=== PATIENT | male | born 1965 | race Caucasian/White ===

== ENCOUNTER 2020-05-09 13:55 | Outpatient (REF) | payer OTHER, SELFPAY | END 2020-05-09 13:56 | disposition home or self-care (01) | LOC: HO.LAB 13:55 | PROVIDERS: Visit Provider Nurse Practitioner Family | DX: J32.9 Chronic sinusitis, unspecified (principal); Z20.822 Contact with and (suspected) exposure to COVID-19 | CPT/HCPCS: 36415; U0003 ==

== ENCOUNTER 2020-08-22 07:02 | Outpatient (REF) | payer OTHER, SELFPAY ==
[2020-08-22 12:02] LABS: Alanine Aminotransferase 28 U/L (0-40); Albumin Level 4.2 g/dL (3.5-5.0); Alkaline Phosphatase 56 U/L (39-117); Anion Gap 17 (12-20); Aspartate Amino Transferase 23 U/L (5-37); Blood Urea Nitrogen 17 mg/dL (9-16); Calcium 8.7 mg/dL (8.4-10.2); Carbon Dioxide 24 mmol/L (22-29); Chloride 104 mmol/L (96-108); Cholesterol 164 mg/dL; Estimated Glomerular Filt Rate > 60; Glucose Fasting 96 mg/dL (60-99); HDL Cholesterol 57 mg/dL; LDL Cholesterol Calculated 89 mg/dl; Potassium 3.8 mmol/L (3.3-5.1); Sodium 141 mmol/L (135-145); Total Protein 6.8 g/dL (6.5-8.0); Triglycerides 93 mg/dL
[2020-08-22 12:29] LABS: TSH reflex Free T4 1.41 uIU/mL (0.32-4.0)
[2020-08-22 12:57] LABS: Prostate Specific Antigen Scr 2.05 ng/mL (<0.05-4.0)
[2020-08-26 19:21] LABS: Testosterone, Free 73.6 pg/mL (35.0-155.0); Testosterone, Total 501 ng/dL (250-1100)
== END 2020-08-22 07:03 | disposition home or self-care (01) ==
LOC: HO.HMGCLDS 07:02
PROVIDERS: PCP Nurse Practitioner Family; Visit Provider Nurse Practitioner Family
DX: Z00.00 Encounter for general adult medical examination without abnormal findings (principal); R53.83 Other fatigue; Z12.5 Encounter for screening for malignant neoplasm of prostate
CPT/HCPCS: 36415; 80053; 80061; 84153; 84402; 84403; 84443

== ENCOUNTER 2020-12-06 08:00 | Outpatient (REF) | payer OTHER, SELFPAY ==
--- NOTE | ~2020-12-06 | XR_ITS ---
EXAMINATION: XR AP STANDING VIEW OF BOTH KNEES WELL LATERAL AND SUNRISE VIEWS OF THE RIGHT KNEE. CLINICAL INFORMATION: Right knee pain. COMPARISON: 12/01/2019 and 09/09/2019. TECHNIQUE: AP standing views of both knees. Lateral and sunrise views of the right knee. FINDINGS: AP standing view of both knees demonstrates narrowing of the medial joint space compartments bilaterally with marginal spurring. No acute fracture or dislocation is evident. 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 There is spurring seen involving both the medial and lateral facets of the patella. No effusion is appreciated. XR/XR knee standing BI IMPRESSION: Degenerative joint disease about the medial joint space compartments bilaterally. Patellofemoral degenerative change with spurring undersurface of the patella. No acute fracture or effusion.
--- NOTE | ~2020-12-06 | XR_ITS ---
EXAMINATION: XR AP STANDING VIEW OF BOTH KNEES WELL LATERAL AND SUNRISE VIEWS OF THE RIGHT KNEE. CLINICAL INFORMATION: Right knee pain. COMPARISON: 12/01/2019 and 09/09/2019. TECHNIQUE: AP standing views of both knees. Lateral and sunrise views of the right knee. FINDINGS: AP standing view of both knees demonstrates narrowing of the medial joint space compartments bilaterally with marginal spurring. No acute fracture or dislocation is evident. 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 There is spurring seen involving both the medial and lateral facets of the patella. No effusion is appreciated. XR/XR knee RT 2V IMPRESSION: Degenerative joint disease about the medial joint space compartments bilaterally. Patellofemoral degenerative change with spurring undersurface of the patella. No acute fracture or effusion.
== END 2020-12-06 08:01 | disposition home or self-care (01) ==
LOC: HO.HOSX 08:00
PROVIDERS: Visit Provider Orthopaedic Surgery
DX: M17.0 Bilateral primary osteoarthritis of knee (principal)
CPT/HCPCS: 73560; 73565

== ENCOUNTER 2022-06-18 11:54 | Outpatient (REF) | payer OTHER, SELFPAY ==
[2022-06-18 14:00] LABS: MANUAL DIFF FLAG NO
[2022-06-18 14:04] LABS: Basophils Percent Auto 0.8 % (0-2); Eosinophils Absolute Auto 0.1 X10*3/uL (0.0-0.4); Eosinophils Percent Auto 2.7 % (0-4); Hematocrit 43.8 % (42.0-52.0); Hemoglobin 14.9 g/dl (14.0-18.0); Imm Gran Abs Auto 0.01 X10*3/uL (0.00-0.03); Imm Gran Pct Auto 0.2 % (0.0-0.4); Lymphocytes Absolute Auto 1.7 X10*3/uL (1.2-4.9); Lymphocytes Percent Auto 33.7 % (20-40); Mean Corpuscular Hemoglobin 32.3 pg (27.0-33.0); Mean Platelet Volume 9.6 fL (9.4-12.4); Monocytes Absolute Auto 0.5 X10*3/uL (0.1-1.2); Monocytes Percent Auto 8.8 % (2-11); Neutrophils Absolute Auto 2.8 x10*3/uL (2.0-8.3); Neutrophils Percent Auto 53.8 % (45-73); Platelet Count 183 X10*3/uL (160-400); Red Blood Count 4.61 X10*6/uL (4.60-5.80); Red Cell Distribution Width 12.1 % (11.0-16.0); White Blood Count 5.1 X10*3/uL (4.8-10.8)
[2022-06-18 14:08] LABS: Appearance Urine Turbid; Color Urine Yellow; Glucose Urine UA Negative (Negative); Leukocyte Esterase Urine Negative (Negative); Nitrite Urine Negative (Negative); Specific Gravity - Urine 1.025 (1.005-1.025); Urine Blood Negative (Negative); Urine Ketones Negative (Negative); Urine Protein Negative (Neg-Trace)
[2022-06-18 14:49] LABS: Alanine Aminotransferase 27 U/L (0-40); Albumin Level 4.2 g/dL (3.5-5.0); Alkaline Phosphatase 51 U/L (39-117); Anion Gap 13 (12-20); Aspartate Amino Transferase 26 U/L (5-37); Bilirubin Total 1.4 mg/dL (0.0-1.0); Blood Urea Nitrogen 15 mg/dL (9-16); Calcium 9.1 mg/dL (8.4-10.2); Carbon Dioxide 24 mmol/L (22-29); Chloride 106 mmol/L (96-108); Cholesterol 202 mg/dL; Estimated Glomerular Filt Rate > 60; Glucose Fasting 107 mg/dL (60-99); HDL Cholesterol 80 mg/dL; LDL Cholesterol Calculated 105 mg/dl; Potassium 4.1 mmol/L (3.3-5.1); Sodium 139 mmol/L (135-145); Triglycerides 89 mg/dL
[2022-06-18 14:57] LABS: Prostate Specific Antigen Scr 2.64 ng/mL (<0.05-4.0); TSH reflex Free T4 0.91 uIU/mL (0.32-4.0)
== END 2022-06-18 11:55 | disposition home or self-care (01) ==
LOC: HO.HMGCLDS 11:54
PROVIDERS: PCP Nurse Practitioner Family; Visit Provider Nurse Practitioner Family
DX: Z00.00 Encounter for general adult medical examination without abnormal findings (principal); Z12.5 Encounter for screening for malignant neoplasm of prostate
CPT/HCPCS: 36415; 80053; 80061; 81003; 84153; 84443; 85025

== ENCOUNTER 2022-12-18 15:26 | Outpatient (AMB) | payer OTHER, SELFPAY ==
--- NOTE | 2022-12-18 15:26 | A.OFFVIS_ITS ---
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 Pt states that the VV are becoming painful to touch, burning and itching, has been prescribed compression stockings. 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 Complaints include pain over varicosities, swelling of lower extremities, cramping, fatigue, and heaviness of the lower extremities. 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 It is noted more so in right leg. Patient denies any previous venous surgery or injections, but was evaluated several years prior by Dr. Cortes and was actually scheduled for venous intervention but ended up having orthopedic surgery instead. Patient denies any history of DVT/ PE.- he does have a family history DVT inclusive of his mom who had a DVT and PE Patient denies any history of phlebitis. Trial of compression includes - [id number] They now present for vascular evaluation regarding their varicose veins. [facility] Medical History GERD (gastroesophageal reflux disease) History of torn meniscus of left knee Hypertension JOHN (obstructive sleep apnea) Primary osteoarthritis of left knee Primary osteoarthritis of right knee Family History Father No problems noted. 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 Review of Systems Const Reports as per HPI ENT Reports no additional complaints Card Denies chest pain, Denies chest pain at rest and Denies chest pain with activity Resp Denies chest congestion and Denies cough GI Reports no additional complaints Musc Details: pain over varicosities, aching of lower extremities, swelling, cramping, heaviness and tiredness, itching Denies abnormal gait Skin/Breast Reports pruritus and Denies wounds Neuro Reports no additional complaints and Denies abnormal gait Psych Denies no additional complaints Physical Exam Vital Signs: BMI result Body Mass Index 39.1 Const General: cooperative, healthy appearing and comfortable Orientation/consciousness: oriented to person, oriented to place and oriented to time Neck Carotids: no bruits Chest Chest palpation & inspection: normal inspection of the chest and normal palpation of entire chest wall Resp Effort & Inspection: normal respiratory effort and able to speak in complete sentences Cardio Rate: regular rate Heart sounds: S1 normal heart sound present and S2 normal heart sound present Peripheral pulses: Peripheral pulses 2+ throughout GI Inspection: Yes normal to inspection Skin Other: +2 edema, large rope-like varicosities greater than 4 mm CEAP Classification C4 - skin color changes Ep - Etiology Primary As - superficial veins P - reflux General skin exam: dry skin Neuro General: oriented to person, oriented to place and oriented to time Extrem Right lower extremity: full ROM, normal capillary refill and edema Left lower extremity: full ROM, normal capillary refill and edema Psych Mental Status: mental status grossly normal Assessment & Plan Assessment & Plan (1) Varicose veins of right lower extremity with inflammation: Code(s): I83.11 - Varicose veins of right lower extremity with inflammation Plan: In short, the patient has evidence of venous insufficiency. I have discussed the pathophysiology with the patient. In addition I have provided informational material regarding venous disease to the patient. We have discussed conservative measures including compression, elevation, and exercise. I have also provided a handout regarding appropriate use of compression stockings and where to purchase good compression stockings as well. I have taken the liberty of ordering venous insufficiency testing with the patient. They will follow up with me after testing. The patient had an opportunity to ask questions regarding the treatment plan. All questions were answered. Imaging studies, laboratory studies and physical exam results were discussed and reviewed in detail. No major barriers to understanding were identified. The patient expressed understanding and agreement with the above treatment plan. The patient is aware they should contact our office by phone for worsening of the current condition or the appearance of new symptoms. Thank you for allowing me to participate in the vascular care of this patient. If you have any questions or concerns regarding the treatment for the above condition please do not hesitate to contact me. The office telephone contact is [phone]. This note is constructed using voice recognition software. While every effort has been made to ensure accuracy, criminal intelligence analyst errors may have been included. Thank you for allowing me to participate in the care of your patient. Yours sincerely, Ric Naranjo MD, FACS, R.P.V.I. Orders: Orders US venous duplex LE BI 1 Week I83.11 - Varicose veins of right lower extremity with inflammation Coding Level of Care Code Est Pt Level 4 (35074) Diagnoses Varicose veins of right lower extremity with inflammation I83.11
[2022-12-18 15:27] VITALS: BMI 39.1
== END 2022-12-18 15:57 | disposition home or self-care (01) ==
PROVIDERS: PCP Nurse Practitioner Family; Visit Provider Surgery Vascular Surgery
DX: I83.11 Varicose veins of right lower extremity with inflammation (principal); I83.12 Varicose veins of left lower extremity with inflammation; Z83.2 Family history of diseases of the blood and blood-forming organs and certain disorders involving the immune mechanism
CPT/HCPCS: 99203

== ENCOUNTER → 2022-12-18 15:26 | Outpatient (BNVA) | payer OTHER, SELFPAY | PROVIDERS: PCP Nurse Practitioner Family; Visit Provider Surgery Vascular Surgery ==

== ENCOUNTER 2022-12-24 10:03 | Outpatient (REF) | payer OTHER, SELFPAY ==
[2022-12-24 11:27] LABS: MANUAL DIFF FLAG NO
[2022-12-24 12:09] LABS: Basophils Percent Auto 0.6 % (0-2); Eosinophils Absolute Auto 0.1 X10*3/uL (0.0-0.4); Eosinophils Percent Auto 2.3 % (0-4); Hematocrit 43.9 % (42.0-52.0); Hemoglobin 14.8 g/dl (14.0-18.0); Imm Gran Abs Auto 0.01 X10*3/uL (0.00-0.03); Imm Gran Pct Auto 0.2 % (0.0-0.4); Lymphocytes Absolute Auto 1.6 X10*3/uL (1.2-4.9); Lymphocytes Percent Auto 30.4 % (20-40); Mean Corpuscular HGB Conc 33.7 g/dl (31.0-36.0); Mean Corpuscular Hemoglobin 32.7 pg (27.0-33.0); Mean Corpuscular Volume 97.1 fL (80.0-98.0); Mean Platelet Volume 9.6 fL (9.4-12.4); Monocytes Absolute Auto 0.5 X10*3/uL (0.1-1.2); Monocytes Percent Auto 9.2 % (2-11); Neutrophils Percent Auto 57.3 % (45-73); Platelet Count 186 X10*3/uL (160-400); Red Blood Count 4.52 X10*6/uL (4.60-5.80); White Blood Count 5.2 X10*3/uL (4.8-10.8)
[2022-12-24 12:43] LABS: Alanine Aminotransferase 27 U/L (0-40); Albumin Level 4.2 g/dL (3.5-5.0); Alkaline Phosphatase 49 U/L (39-117); Anion Gap 13 (12-20); Aspartate Amino Transferase 24 U/L (5-37); Bilirubin Total 1.6 mg/dL (0.0-1.0); Blood Urea Nitrogen 13 mg/dL (9-16); Calcium 9.6 mg/dL (8.4-10.2); Carbon Dioxide 26 mmol/L (22-29); Chloride 105 mmol/L (96-108); Cholesterol 197 mg/dL (<200); Estimated Glomerular Filt Rate > 60; Glucose Fasting 109 mg/dL (60-99); HDL Cholesterol 70 mg/dL (>40); LDL Cholesterol Calculated 108 mg/dL (<100); Potassium 3.8 mmol/L (3.3-5.1); Sodium 140 mmol/L (135-145); Total Protein 7.4 g/dL (6.5-8.0); Triglycerides 96 mg/dL (<150)
[2022-12-24 12:47] LABS: TSH reflex Free T4 0.68 uIU/mL (0.32-4.0)
[2022-12-24 14:10] LABS: Appearance Urine Turbid; Color Urine Yellow; Glucose Urine UA Negative (Negative); Leukocyte Esterase Urine Negative (Negative); Nitrite Urine Negative (Negative); Urine Blood Negative (Negative); Urine Ketones Negative (Negative); Urine Protein Negative (Neg-Trace)
== END 2022-12-24 10:04 | disposition home or self-care (01) ==
LOC: HO.HMGCLDS 10:03
PROVIDERS: PCP Nurse Practitioner Family; Visit Provider Nurse Practitioner Family
DX: Z00.00 Encounter for general adult medical examination without abnormal findings (principal); R17 Unspecified jaundice; R73.03 Prediabetes; Z13.29 Encounter for screening for other suspected endocrine disorder; Z13.220 Encounter for screening for lipoid disorders
CPT/HCPCS: 36415; 80053; 80061; 81003; 84443; 85025

== ENCOUNTER 2022-12-28 08:34 | Outpatient (REF) | payer OTHER, SELFPAY ==
--- NOTE | ~2022-12-28 | US_ITS ---
EXAMINATION: US VENOUS REFLUX/INSUFFICIENCY CLINICAL INFORMATION: Varicose veins of right lower extremity of inflammation. COMPARISON: None. TECHNIQUE: Bilateral lower extremity venous insufficiency ultrasound was performed with velocity measurements. Color flow Doppler imaging was performed. FINDINGS: RIGHT SIDE: No evidence of DVT or venous reflux within the common femoral, mid femoral, or popliteal vein. GREATER SAPHENOUS VEIN: The right saphenofemoral junction measures 0.6cm. The reflux time is 0 ms. Proximal thigh measures 0.6cm. Reflux time is 0 ms. Mid thigh measures 0.2cm. Reflux time is 0 ms. Above-knee measures 0.2cm. Reflux time is 0 ms. At the knee measures 0.2cm. Reflux time is 0 ms. Below the knee measures 0.2cm. Reflux time is 0 ms. Mid calf measures 0.3cm. Reflux time is greater than 2716 ms. At the level of the ankle it measures 0.3cm. Reflux time is 0 ms. There is a small lateral accessory great saphenous vein which measures 0.1 cm at the saphenofemoral junction and does not demonstrate reflux. SMALL SAPHENOUS VEIN: The saphenopopliteal junction measures 0.2 cm. Reflux time is 0 ms. The upper right small saphenous vein measures 0.2 cm. Reflux time is 0 ms.. The lower small saphenous vein measures 0.2cm. Reflux time is 0 ms. 3 varicosities are visualized and are associated with the greater saphenous vein. At the mid calf there is a 0.2 cm varicosity with reflux time greater than 3032 ms. 2 additional varicosities are seen and the level of the proximal thigh and proximal calf which both measure 0.3 cm LEFT SIDE: No evidence of DVT or venous reflux within the common femoral, mid femoral, or popliteal vein. GREATER SAPHENOUS VEIN: The left saphenofemoral junction measures 1cm. The reflux time is 0 ms. Proximal thigh measures 0.6cm. Reflux time is 0 ms. Mid thigh measures 0.2cm. Reflux time is 0 ms. Above-knee measures 0.3cm. Reflux time is 0 ms. At the knee measures 0.2cm. Reflux time is 0 ms. Below the knee measures 0.2cm. Reflux time is 0 ms. Mid calf measures 0.2cm. Reflux time is 0 ms. At the level of the ankle it measures0.2cm. Reflux time is 0 ms. There is a lateral accessory saphenous vein which measures 0.3 cm at the saphenofemoral junction and 0.2 cm at the mid thigh. No demonstrable reflux SMALL SAPHENOUS VEIN: The saphenopopliteal junction measures 0.3 cm. Reflux time is 0 ms. The upper left small saphenous vein measures 0.2 cm. Reflux time is 0 ms. The lower small saphenous vein is duplicated and each duplicated segment measures 0.2 cm. No reflux observed. US/US venous duplex LE BI IMPRESSION: The deep venous system is patent and does not demonstrate reflux. On the right there is segmental reflux within the midcalf segment of the great saphenous vein. There are several right lower extremity varicosities associated with the great saphenous vein. Among these is a 0.2 cm varicosity at the mid calf with reflux time greater than 3032 ms. The left lower extremity superficial venous system is patent and does not demonstrate reflux.
== END 2022-12-28 08:35 | disposition home or self-care (01) ==
LOC: HO.US 08:34
PROVIDERS: PCP Nurse Practitioner Family; Visit Provider Surgery Vascular Surgery
DX: I83.11 Varicose veins of right lower extremity with inflammation (principal)
CPT/HCPCS: 93970

== ENCOUNTER 2023-01-08 10:13 | Outpatient (AMB) | payer OTHER, SELFPAY ==
--- NOTE | 2023-01-08 10:16 | A.OFFVIS_ITS ---
Intake VS Expanded 01/08/23 10:24 01/13/23 22:32 Height 5 ft 9 in 5 ft 9 in Weight 264 lb 8.875 oz 265 lb BMI 39.1 39.1 Intake Visit Reasons: pre dm Allergies prednisone [PREDNISONE] Allergy (Severe, Verified 12/18/22 15:36) GI BLEED, bleeding from lining of stomach prednisolone Allergy (Unknown, Verified 12/18/22 15:36) stomach upset cat, dogs Allergy (Unknown, Uncoded 12/18/22 15:36) Itching HPI Nutrition Presentation Details Pt presents for initial MNT for PRe DM. Pt was referred by Franco STEELE Pt reports most meals are from fast food restaurants B: large coffee midnight with cream only, henley cheddar bite L/D: fries/burger or chicken/potato/henley, water , milk snack crackers, pastries, fruits , chips eTOH: -- Smoking__ physical activity: daily life activities DRJ-Mywrwai-Xx.Jeor Equation Height 5 ft 9 in Weight 265 lb Resting Metabolic Rate 2025.67 Calculated Activity Level Sedentary Calories Needed to Maintain Weight 2430.80 Diagnosis Nutrition problem #1 food nutri know defi As related to (etiology) #1 diagnosis As evidenced by (sign/symptom) #1 no prior educ - nutri rec Monitoring/Goals Nutrition problem monitoring HgbA1c and level of knowledge/skill Most Recent Diabetes Results: Cholesterol 197 mg/dL (<200) 12/24/22 HDL Cholesterol 70 mg/dL (>40) 12/24/22 Triglycerides 96 mg/dL (<150) 12/24/22 Creatinine 0.90 mg/dL (0.5-1.4) 12/24/22 Blood Urea Nitrogen 13 mg/dL (9-16) 12/24/22 Sodium 140 mmol/L (135-145) 12/24/22 Potassium 3.8 mmol/L (3.3-5.1) 12/24/22 Chloride 105 mmol/L (96-108) 12/24/22 Carbon Dioxide 26 mmol/L (22-29) 12/24/22 Calcium 9.6 mg/dL (8.4-10.2) 12/24/22 AST 24 U/L (5-37) 12/24/22 ALT 27 U/L (0-40) 12/24/22 Total Protein 7.4 g/dL (6.5-8.0) 12/24/22 Albumin 4.2 g/dL (3.5-5.0) 12/24/22 [facility] Medical History GERD (gastroesophageal reflux disease) History of torn meniscus of left knee Hypertension JOHN (obstructive sleep apnea) Primary osteoarthritis of left knee Primary osteoarthritis of right knee Family History Father No problems noted. 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 Assessment & Plan Assessment & Plan (1) Prediabetes: Code(s): R73.03 - Prediabetes Plan: wt: 120 kg Est kcal needs as per MSJ: 2500 (40% carb, 30% protein/fat) Est fluid needs as per 25-30 ml/d: 3000 Est prot per day as per 1 g/kg bw: 120 Recommend fiber intake : 8-10 g per day and gradually increase to 25-28 g per day for women and 35-38 g for men or as tolerated Recommend sodium intake per day : less than 2000 mg Educated patient on: ( R = reviewed V = verbalizes understanding N/R = needs review N/A = not applicable * Food sources of carbohydrate, adequate serving sizes and its role in various health conditions: R * Differences between complex carbohydrates a simple carbohydrates, role of fiber in diet: R * Differences between types of fats and role in diet (mono on saturated fat fatty acids, saturated fatty acids, trans fats): R * lean protein sources of foods: R * Food sources of sodium in salt and healthy modifications for heart health in kidney health: NR * Healthy plate method concept: R * Physical activity: Benefits a precaution: R * Hypoglycemia protocol (rule of 15): NR * Dietary prevention of Hyperglycemia: R Patient Instructions: Reduce calories by 500 by - reducing intake of high fat foods - reduce sugar intake see meal plan as reference Coding Level of Care Code Nutr Indiv Intake (87699) Diagnoses Prediabetes R73.03 Time Spent (min) 30
[2023-01-08 10:24] VITALS: BMI 39.1
[2023-01-13 22:32] VITALS: BMI 39.1
== END 2023-01-08 11:25 | disposition home or self-care (01) ==
PROVIDERS: PCP Nurse Practitioner Family; Visit Provider Dietitian, Registered
DX: R73.03 Prediabetes (principal)

== ENCOUNTER → 2023-01-08 10:13 | Outpatient (BNVA) | payer OTHER, SELFPAY | PROVIDERS: PCP Nurse Practitioner Family; Visit Provider Dietitian, Registered | DX: R73.03 Prediabetes (principal); Z71.3 Dietary counseling and surveillance | CPT/HCPCS: 97802 ==

== ENCOUNTER 2023-01-18 15:01 | Outpatient (AMB) | payer OTHER, SELFPAY ==
--- NOTE | 2023-01-18 15:03 | A.OFFVIS_ITS ---
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 01/18/2023? He presents today for an evaluation of incomplete bladder emptying. Evaluation today?UA? Plan: [facility] Medical History GERD (gastroesophageal reflux disease) History of torn meniscus of left knee Hypertension JOHN (obstructive sleep apnea) Primary osteoarthritis of left knee Primary osteoarthritis of right knee Family History Father No problems noted. 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 All questions were answered. Imaging, Laboratory studies and physical exam results were discussed and reviewed in detail. No major barriers to understanding were identified. The patient expressed understanding and agreement with the above treatment plan.? ? ? The patient is aware they should contact our office by phone for worsening of their current condition or the appearance of new symptoms. Compliance is encouraged with any medications and followup testing that is ordered.? ? ? It is a privilege to be allowed the opportunity to participate in the urologic care of your patient. If you have any questions or concerns regarding treatment for the above conditions please do not hesitate to contact me. The office telephone contact is [phone].? ? ? This note is constructed in part using voice recognition software. While every effort has been made to ensure accuracy loading shovel oiler errors may have been included.? ? ? Yours sincerely,? ? ? Pierre Cartwright MD? Coding
--- NOTE | 2023-01-18 15:05 | MHC.OFFVIS ---
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 Intake Note: NEW Patient presents today to established treatment for Incomplete Bladder Emptying: Meds- Sildenafil Allergies to Antibiotic- No Known Allergies Blood Thinner- None PVR- 0 Manager Trade Required: No Accompanied by: Self / Same As Patient Allergies prednisone [PREDNISONE] Allergy (Severe, Verified 01/18/23 15:07) GI BLEED, bleeding from lining of stomach prednisolone Allergy (Unknown, Verified 01/18/23 15:07) stomach upset cat, dogs Allergy (Unknown, Uncoded 01/18/23 15:07) Itching Medication List - Last Reconciled 01/18/23 by Pierre Cartwright MD lisinopril 10 mg PO DAILY omeprazole 40 mg (2 x 20 mg) PO DAILY sertraline 200 mg (2 x 100 mg) PO DAILY sildenafil 100 mg PO DAILY PRN 10 days tadalafil (Cialis) 5 mg PO DAILY HPI HPI Comments History of Present Illness Details Emmanuel is a 57-year-old male who presents today to the office to establish as a new patient for an evaluation of incomplete bladder emptying. 01/18/2023? He presents today for an evaluation of incomplete bladder emptying. AUA symptom score: 14, and IIEF-5 questionnaire was 15. I reviewed the PSA results from 06/18/2022 revealed 2.64 ng/mL. He states that he is not emptying the bladder well. He complains of a weak urinary stream. He states that his PCP has prescribed Viagra and states that the Viagra is helping with the erections. Evaluation today?UA? leukocytes: negative; blood: negative. bladder scan PVR: 0 mL. Plan: Renal and bladder US was ordered. Cialis 5 mg was ordered. Cont with Viagra on demand Follow-up in 3 months with PSA screening. [facility] Medical History GERD (gastroesophageal reflux disease) History of torn meniscus of left knee Hypertension JOHN (obstructive sleep apnea) Primary osteoarthritis of left knee Primary osteoarthritis of right knee Family History Father No problems noted. 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 Questionnaire AUA Symptom Score AUA Incomplete emptying - It does not feel like I empty my bladder all the way.: 4 - More than half the time Frequency - I have to go again less than two hours after I finish urinating.: 2 - Less than half the time Intermittency - I stop and start again several times when I urinate.: 0 - Not at all Urgency - It is hard to wait when I have to urinate.: 1 - Less than 1 time in 5 Weak stream - I have a weak urinary stream.: 5 - Almost always Straining - I have to push or strain to begin urination.: 1 - Less than 1 time in 5 Nocturia - I get up to urinate after I go to bed until the time I get up in the morning.: 1 time AUA Symptom Score: 14 Quality of life due to urinary symptoms: If you were to spend the rest of your life with your urinary condition the way it is now, how would you feel about that?: Mixed: about equally satisfied and dissatisfied Source: Zeus WILLIS, Jorge Luis JULIAN Jr, O'Chidi MP, et al, and the Measurement Committee of the [place] [employer]. The [place] [employer] symptom index for benign prostatic hyperplasia. J Urol. 1992; 148: 3940-5071. Copyright 1992 [place] [employer] Review of Systems Const All systems reviewed & are unremarkable except as noted in HPI and below Reports no additional complaints Eyes Reports no additional complaints ENT Reports no additional complaints Card Denies dyspnea Resp Denies cough and Denies dyspnea GI Reports no additional complaints Musc Reports no additional complaints Skin/Breast Denies rash and Denies unusual bruising Neuro Reports no additional complaints Psych Reports no additional complaints Endo Reports no additional complaints Paulie/Lymph Reports no additional complaints Aller/Immun Reports no additional complaints Physical Exam Const General: healthy appearing, no acute distress and well developed Orientation/consciousness: patient oriented x3 HEENT Head: Yes normocephalic and Yes atraumatic Eyes Conjunctivae: conjunctivae normal Neck Neck: Yes normal visual inspection Chest Chest palpation & inspection: normal inspection of the chest Resp Effort & Inspection: normal respiratory effort Cardio Rate: regular rate GI Inspection: Yes normal to inspection Palpation (GI): Soft to palpation Skin General skin exam: no rashes or lesions noted Neuro General: patient oriented x3 Extrem General: No pedal edema Psych Appearance: grossly normal Affect: normal affect Results AMB Urinalysis, Automated UA Leukoctes 0 Freda/uL Last Edit by EVA Benavides on 01/18/23 15:21 UA Nitrite Negative [facility] 01/18/[facility] 15:21 UA Urobilinogen 0.2 mg/dL Last Edit by EVA Benavides on 01/18/23 15:21 UA Protein 15 mg/dL Last Edit by Karen Lainez [facility] on 01/18/23 15:21 UA pH 6.0 Last Edit by Karen Lainez [facility] on 01/18/23 15:21 UA Blood 0 Poli/uL Last Edit by Karen Lainez [facility] on 01/18/23 15:21 UA Specific [place] 1.020 Last Edit by Karen Lainez [facility] on 01/18/23 15:21 UA Ketone Negative Last Edit by Karen Lainez [facility] on 01/18/23 15:21 UA Bilirubin 0 mg/dL Last Edit by Karen Lainez [facility] on 01/18/23 15:21 UA Glucose 0 mg/dL Last Edit by Karen Lainez [facility] on 01/18/23 15:21 Results Reviewed Results Reviewed: Laboratory Last Values Urine pH (Auto) 6.0 01/18/23 15:20 Specific [place] (Auto) 1.020 01/18/23 15:20 Urine Protein (Auto) 15 mg/dL 01/18/23 15:20 Glucose (UA)(Auto) 0 mg/dL 01/18/23 15:20 Urine Ketones (Auto) Negative 01/18/23 15:20 Urine Blood (Auto) 0 Poli/uL 01/18/23 15:20 Urine Nitrite (Auto) Negative 01/18/23 15:20 Urine Bilirubin (Auto) 0 mg/dL 01/18/23 15:20 Urine Urobilinogen (Auto) 0.2 mg/dL 01/18/23 15:20 Leukocyte Esterase (Auto) 0 Freda/uL 01/18/23 15:20 Assessment & Plan Assessment & Plan (1) Slowing of urinary stream: Code(s): R39.198 - Other difficulties with micturition (2) Screening PSA (prostate specific antigen): Code(s): Z12.5 - Encounter for screening for malignant neoplasm of prostate Plan Renal and bladder US was ordered. Cialis 5 mg was ordered. Cont with Viagra on demand Follow-up in 3 months with PSA screening. Orders: Orders AMB Urinalysis Automated 01/18/23 Z13.9 - Encounter for screening, unspecified PSA,Total (Free>4and<10) 1 Month Z12.5 - Encounter for screening for malignant neoplasm of prostate US retroperitoneal comp 01/18/23 R39.198 - Other difficulties with micturition Medications: New tadalafil (Cialis) [facility] [id number] [facility] [id number] 5 mg PO DAILY 90 tabs 1RF Refilled sildenafil administer 30 minutes to 4 hours before activity 100 mg PO DAILY 10 days PRN 10 tabs 1RF sexual activity Patient Instructions: The patient had an opportunity to ask questions regarding treatment plan. All questions were answered. Imaging, Laboratory studies and physical exam results were discussed and reviewed in detail. No major barriers to understanding were identified. The patient expressed understanding and agreement with the above treatment plan.? ? ? The patient is aware they should contact our office by phone for worsening of their current condition or the appearance of new symptoms. Compliance is encouraged with any medications and followup testing that is ordered.? ? ? It is a privilege to be allowed the opportunity to participate in the urologic care of your patient. If you have any questions or concerns regarding treatment for the above conditions please do not hesitate to contact me. The office telephone contact is [phone].? ? ? This note is constructed in part using voice recognition software. While every effort has been made to ensure accuracy book solicitor errors may have been included.? ? ? Yours sincerely,? ? ? Pierre Cartwright MD? Quality Reporting (2019) Benign Prostatic Hyperplasia ([facility] 771) AUA symptom score: 14 Quality of life due to urinary symptoms: If you were to spend the rest of your life with your urinary condition the way it is now, how would you feel about that?: Mixed: about equally satisfied and dissatisfied Coding Level of Care Code New Pt Level 4 (56691) Diagnoses Slowing of urinary stream R39.198 Screening PSA (prostate specific antigen) Z12.5
== END 2023-01-18 15:51 | disposition home or self-care (01) ==
PROVIDERS: PCP Nurse Practitioner Family; Visit Provider Urology
DX: R39.198 Other difficulties with micturition (principal); Z12.5 Encounter for screening for malignant neoplasm of prostate
CPT/HCPCS: 99204

== ENCOUNTER → 2023-01-18 15:01 | Outpatient (BNVA) | payer OTHER, SELFPAY | PROVIDERS: PCP Nurse Practitioner Family; Visit Provider Urology | DX: R39.198 Other difficulties with micturition (principal) | CPT/HCPCS: 81003 ==

== ENCOUNTER 2023-01-31 14:59 | Outpatient (AMB) | payer OTHER, SELFPAY ==
[2023-01-31 15:10] VITALS: BMI 39.1
--- NOTE | 2023-01-31 15:10 | MHC.OFFVIS ---
Intake Vital Signs 01/31/23 15:10 Height 5 ft 9 in Weight 265 lb BMI 39.1 Intake Visit Reasons: Follow Up 12/28 US Intake Note: follow up US 12/28/22, for bilateral LE VV w/ Hx of scheduling a procedure w/ but was postponed due to knee surgery. Has itching burning and pain over VV bilateral LE. Has been wearing compression daily. Accompanied by: Self / Same As Patient Allergies prednisone [PREDNISONE] Allergy (Severe, Verified 01/31/23 15:15) GI BLEED, bleeding from lining of stomach prednisolone Allergy (Unknown, Verified 01/31/23 15:15) stomach upset cat, dogs Allergy (Unknown, Uncoded 01/31/23 15:15) Itching HPI Follow Up 12/28 HPI Details Very pleasant 57-year-old gentleman presents for follow-up regarding venous insufficiency. He notes that he does have occasional mild swelling of the legs but more particular are these large varicosities on the lateral aspects of his thighs. They have been a source of pain and discomfort for him. He has been compliant with compression which have provided minimal relief. He now presents for follow-up with venous insufficiency testing [facility] Medical History Primary osteoarthritis of right knee Primary osteoarthritis of left knee JOHN (obstructive sleep apnea) History of torn meniscus of left knee Hypertension GERD (gastroesophageal reflux disease) Family History Father No problems noted. 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 Review of Systems Const Reports as per HPI ENT Reports no additional complaints Card Denies chest pain, Denies chest pain at rest and Denies chest pain with activity Resp Denies chest congestion and Denies cough GI Reports no additional complaints Musc Details: pain over varicosities, aching of lower extremities, swelling, cramping, heaviness and tiredness, itching Denies abnormal gait Skin/Breast Reports pruritus and Denies wounds Neuro Reports no additional complaints and Denies abnormal gait Psych Denies no additional complaints Physical Exam Vital Signs: BMI result Body Mass Index 39.1 Const General: cooperative, healthy appearing and comfortable Orientation/consciousness: oriented to person, oriented to place and oriented to time Neck Carotids: no bruits Chest Chest palpation & inspection: normal inspection of the chest and normal palpation of entire chest wall Resp Effort & Inspection: normal respiratory effort and able to speak in complete sentences Cardio Rate: regular rate Heart sounds: S1 normal heart sound present and S2 normal heart sound present Peripheral pulses: Peripheral pulses 2+ throughout GI Inspection: Yes normal to inspection Skin Other: +2 edema, large rope-like varicosities greater than 4 mm bilateral lateral thigh CEAP Classification C4 - skin color changes Ep - Etiology Primary As - superficial veins P - reflux General skin exam: dry skin Neuro General: oriented to person, oriented to place and oriented to time Extrem Right lower extremity: full ROM, normal capillary refill and edema Left lower extremity: full ROM, normal capillary refill and edema Psych Mental Status: mental status grossly normal Results Reviewed Results Reviewed: Brief summary of venous insufficiency testing is as follows: right great saphenous vein: negative right small saphenous vein: negative right accessory vein: none present left great saphenous vein: negative left small saphenous vein: negative left accessory vein: none present Please note there is no evidence of any venous aneurysms or significant tortuosity Assessment & Plan Assessment & Plan (1) Varicose veins of left lower extremity with inflammation: Code(s): I83.12 - Varicose veins of left lower extremity with inflammation Plan: This patient has varicose veins with inflammation. They continue to be a source of discomfort for the patient. The patient has tried conservative treatment with compression, leg elevation and exercise program for over 3 months time. They have been compliant with all treatment. This has provided minimal relief for the patient. I do not anticipate this course of treatment will alter the underlying etiology. The patient has been scheduled for lower extremity venous treatment inclusive of --- left leg microphlebectomy. Risks, benefits, and complications of this procedure has been discussed in detail with the patient including but not limited to bleeding, infection, and the development of a DVT. The patient has demonstrated a clear understanding and has consented. We will schedule the patient as soon as possible. Thank you for allowing us to participate in this patient's care. If there are any questions or concerns please do not hesitate to contact us. Coding Level of Care Code Est Pt Level 4 (56874) Diagnoses Varicose veins of left lower extremity with inflammation I83.12
== END 2023-01-31 16:04 | disposition home or self-care (01) ==
PROVIDERS: PCP Nurse Practitioner Family; Visit Provider Surgery Vascular Surgery
DX: I83.12 Varicose veins of left lower extremity with inflammation (principal)
CPT/HCPCS: 99214

== ENCOUNTER → 2023-01-31 14:59 | Outpatient (BNVA) | payer OTHER, SELFPAY | PROVIDERS: PCP Nurse Practitioner Family; Visit Provider Surgery Vascular Surgery ==

== ENCOUNTER 2023-02-04 14:54 | Outpatient (REF) | payer OTHER, SELFPAY ==
[2023-02-04 16:04] LABS: Retic HGB Equivalent 38.6 pg (30.0-35.0); Reticulocyte Percent 2.3 % (0.5-1.8)
[2023-02-04 16:15] LABS: Bilirubin Direct 0.3 mg/dL (0.0-0.5); Bilirubin Total 0.8 mg/dL (0.0-1.0); Lactate Dehydrogenase 186 U/L (118-273)
[2023-02-04 16:39] LABS: PSA,Total (Free>4and<10) 2.87 ng/mL (0.00-4.00)
[2023-02-05 05:46] LABS: Haptoglobin 188 MG/DL ((30-200))
== END 2023-02-04 14:55 | disposition home or self-care (01) ==
LOC: HO.HMGCLDS 14:54
PROVIDERS: Absent Provider Urology; PCP Nurse Practitioner Family; Visit Provider Nurse Practitioner Family
DX: R17 Unspecified jaundice (principal); Z12.5 Encounter for screening for malignant neoplasm of prostate
CPT/HCPCS: 36415; 82247; 82248; 83010; 83615; 84153; 85045

== ENCOUNTER 2023-02-13 15:30 | Outpatient (AMB) | payer OTHER, SELFPAY ==
--- NOTE | 2023-02-13 15:44 | MHC.PC.OV ---
Vital Signs 02/13/23 15:45 Height 5 ft 9 in Weight 262 lb 6 oz BMI 38.7 BP 160/92 H Blood Pressure Location Lt brachial Position Sitting Pulse 85 Pulse Source Pulse Oximeter Pulse Oximetry (%) 96 Oxygen Delivery Method Room Air Intake Visit Reasons: PE Allergies prednisone [PREDNISONE] Allergy (Severe, Verified 02/13/23 15:47) GI BLEED, bleeding from lining of stomach prednisolone Allergy (Unknown, Verified 02/13/23 15:47) stomach upset cat, dogs Allergy (Unknown, Uncoded 02/13/23 15:47) Itching Medication List - Last Reconciled 02/13/23 by CASS Julien-DONI lisinopril 20 mg PO DAILY 30 days omeprazole 40 mg (2 x 20 mg) PO DAILY sertraline 200 mg (2 x 100 mg) PO DAILY sildenafil 100 mg PO DAILY PRN 10 days tadalafil (Cialis) 5 mg PO DAILY Tobacco use date assessed: 02/13/23 Dental Screening Dental Screen Date: 02/13/23 Did you have a dental visit in the last 12 months?: No Did you have a dental problem in the last 6 months where you did not have access to dental care?: No Was dental information given to patient?: Patient has dentist HPI PE HPI Details Pt is here for a PE. Will order labs. PSA is up to date, sees urology. HTN: Blood pressure is managed with lisinopril 10mg. BP is elevated today, will increase lisinopril to 20mg. Will have pt monitor his BP at home. Denies chest pain, shortness of breath, headache, dizziness, and blurred vision. Pt will be following up with dermatology next month. [facility] Medical History (Updated 02/13/23 @ 17:10 by NIKI Julien) Hypertension Primary osteoarthritis of right knee Primary osteoarthritis of left knee JOHN (obstructive sleep apnea) History of torn meniscus of left knee GERD (gastroesophageal reflux disease) Family History Father No problems noted. 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 Cognitive needs: No Hearing needs: No Vision needs: No Review of Systems Const Denies chills and Denies fever(s) Eyes Denies blurry vision ENT Denies vertigo, Denies dizziness and Denies sore throat Card Denies chest pain at rest, Denies chest pain with activity, Denies diaphoresis, Denies dyspnea and Denies dyspnea on exertion Resp Denies cough, Denies dyspnea, Denies dyspnea on exertion and Denies wheezing GI Denies abdominal pain, Denies melena, Denies hematochezia, Denies constipation, Denies diarrhea and Denies loose stools Denies hematuria Musc Denies numbness and Denies tingling Skin/Breast Denies lesions Neuro Denies vertigo, Denies dizziness, Denies numbness and Denies tingling Psych Denies anxiety, Denies depression, Denies homicidal ideation, Denies suicidal ideation and Denies other (substance abuse) Aller/Immun Denies wheezing Physical exam (Primary Care) Vital Signs: Last Vital Signs Pulse 85 02/13/23 15:45 BP 160/92 H 02/13/23 15:45 Pulse Ox 96 02/13/23 15:45 Oxygen Delivery Method Room Air 02/13/23 15:45 BMI result Body Mass Index 38.7 Tobacco/Smoking Status: Tobacco use Status Tobacco use date assessed 02/13/23 02/13/23 15:54 Patient Tobacco Use Status Never used Tobacco 02/13/23 15:54 e-Cigarette/Vaping Use Never Used 02/13/23 15:54 Const General: cooperative Nutritional Appearance: obese Orientation/consciousness: patient oriented x3 HENMT Head: Yes normal to inspection, Yes normocephalic and Yes atraumatic Ears: TM's normal bilaterally Eyes General: appearance normal, both eyes and all related structures Alignment and Position: alignment normal and position normal Neck Neck: Yes normal visual inspection and Yes no lymphadenopathy Thyroid: Thyroid normal Resp Effort & Inspection: normal respiratory effort Auscultation: clear to auscultation bilaterally Cardio Rate: regular rate Rhythm: regular rhythm Heart sounds: S1 normal heart sound present, S2 normal heart sound present and no murmurs GI Palpation (GI): Soft to palpation and nontender Auscultation: normal bowel sounds Male General Exam: Yes normal external exam Penis: normal penis Scrotum: scrotum normal, testes descended bilaterally and no inguinal hernias Testes: no testicular mass Skin Other: multiple skin tags/moles ( mostly flesh colored) to back Rashes: no rashes Neuro General: patient oriented x3, moves all extremities, no focal motor deficits and deep tendon reflexes 2+ bilaterally Romberg Test: Negative Psych Appearance: grossly normal Mental Status: mental status grossly normal Speech and movement: Normal speech and movement present Affect: normal affect Attitude: cooperative Thought process: Normal thought process present Thought content: Normal thought content present Insight: Good insight present (Psych) Judgement: Good judgement present (Psych) Assessment and Plan Assessment & Plan (1) Physical exam: Code(s): Z00.00 - Encounter for general adult medical examination without abnormal findings Plan: Labs ordered (2) Screening PSA (prostate specific antigen): Code(s): Z12.5 - Encounter for screening for malignant neoplasm of prostate (3) Hypertension: Code(s): I10 - Essential (primary) hypertension Plan: increased lisinopril, will cont to monitor Plan The patient agreed to the use of a medical science liaison for this encounter. Scribed for CASS Barahona-BC by Merry Santos medical science liaison, on 02/13/2023 at 16:00 EST Orders: Orders Lipid Panel Today Z00.00 - Encounter for general adult medical examination without abnormal findings Complete Blood Count Auto Diff Today Z00.00 - Encounter for general adult medical examination without abnormal findings Comprehensive [place]. Panel Fast Today Z00.00 - Encounter for general adult medical examination without abnormal findings TSH reflex Free T4 Today Z00.00 - Encounter for general adult medical examination without abnormal findings UA CC w/rflx Micro + Cult Today Z00.00 - Encounter for general adult medical examination without abnormal findings Medications: Changed From lisinopril 10 mg PO DAILY 90 tabs 1RF To lisinopril 20 mg PO DAILY 30 days 30 tabs 2RF Coding Level of Care Code Est Pt Prev Care 40-64y(10063) Diagnoses Physical exam Z00.00 Screening PSA (prostate specific antigen) Z12.5 Hypertension I10
[2023-02-13 15:45] VITALS: BP 160/92; PULSE 85; O2SAT 96; BMI 38.7
== END 2023-02-13 16:51 | disposition home or self-care (01) ==
PROVIDERS: Supervising Provider Nurse Practitioner Family; Visit Provider Nurse Practitioner Family
DX: Z00.00 Encounter for general adult medical examination without abnormal findings (principal); Z12.5 Encounter for screening for malignant neoplasm of prostate; I10 Essential (primary) hypertension
CPT/HCPCS: 99396

== ENCOUNTER 2023-03-08 09:38 | Outpatient (AMB) | payer OTHER, SELFPAY ==
--- NOTE | 2023-03-08 10:55 | A.OFFVIS_ITS ---
Intake Vital Signs 03/08/23 10:56 Height 5 ft 9 in Weight 262 lb BMI 38.7 Intake Visit Reasons: Left leg Micro Allergies prednisone [PREDNISONE] Allergy (Severe, Verified 03/08/23 10:56) GI BLEED, bleeding from lining of stomach prednisolone Allergy (Unknown, Verified 03/08/23 10:56) stomach upset cat, dogs Allergy (Unknown, Uncoded 03/08/23 10:56) Itching PFSH Medical History Hypertension Primary osteoarthritis of right knee Primary osteoarthritis of left knee JOHN (obstructive sleep apnea) History of torn meniscus of left knee GERD (gastroesophageal reflux disease) Family History Father No problems noted. 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 Varicose veins were marked in the standing position on the left leg and the patient was then placed in the supine position. The left lower extremity was prepared and draped to allow knee flexion in the sterile field. The patient had large superficial varicose veins with significant symptoms of pain. It was therefore determined to perform microphlebectomies of the clusters of varicose veins. The patient had bulging varicose veins which were previously marked in the standing position. A small stab incision was made longitudinally directly overlying the varicose vein in the calf and the varicose vein was grasped with a hemostat aided by a vein hook. It was then dissected as far proximally and distally as possible and avulsed. A total of 25 stab incisions were made and the procedure of stab phlebectomies was repeated 25 times. Hemostasis was checked and stab incision sites were closed with steri-strips and sterile dressing was given with gauze and krilex wrap followed by an pratik bandage. There were no complications and blood loss was minimal. Post-Op instructions were given and a follow-up appointment was recommended. [id number] - Stab Phlebectomy >20 All charges added?: Procedure code (CPT) selection complete Coding Level of Care Code Procedure Only CPT Codes Details - Vascular 6: [id number] - Stab Phlebectomy >20 ([id number])
[2023-03-08 10:56] VITALS: BMI 38.7
== END 2023-03-08 10:52 | disposition home or self-care (01) ==
PROVIDERS: PCP Nurse Practitioner Family; Visit Provider Surgery Vascular Surgery
DX: I83.12 Varicose veins of left lower extremity with inflammation (principal)
CPT/HCPCS: 37766

== ENCOUNTER → 2023-03-08 09:38 | Outpatient (BNVA) | payer OTHER, SELFPAY | PROVIDERS: PCP Nurse Practitioner Family; Visit Provider Surgery Vascular Surgery | DX: I83.12 Varicose veins of left lower extremity with inflammation (principal) | CPT/HCPCS: 37766 ==

== ENCOUNTER 2023-03-11 14:41 | Outpatient (AMB) | payer OTHER, SELFPAY ==
--- NOTE | 2023-03-11 14:42 | MHC.AMNUTRGE ---
Intake VS Expanded 03/11/23 14:43 Height 5 ft 9 in Weight 262 lb 12.656 oz BMI 38.8 Intake Visit Reasons: pre dm Allergies prednisone [PREDNISONE] Allergy (Severe, Verified 03/08/23 10:56) GI BLEED, bleeding from lining of stomach prednisolone Allergy (Unknown, Verified 03/08/23 10:56) stomach upset cat, dogs Allergy (Unknown, Uncoded 03/08/23 10:56) Itching HPI Nutrition Presentation Details Pt presents for MNT f/u for pre diabetes. Pt reports working on mindful eating strategies Pt reports challenges when eating out fruit/d: 0-1- non starchy ve serving 2 x/wk dairy : 3 serving/d fish : 2-3 x/wk fried foods 4 x/wk beverages : water, juices diluted with water, diet beverages, coffee 64 oz/d Physical activity : daily life activities Most Recent Diabetes Results: Cholesterol 197 mg/dL (<200) 12/24/22 HDL Cholesterol 70 mg/dL (>40) 12/24/22 Triglycerides 96 mg/dL (<150) 12/24/22 Creatinine 0.90 mg/dL (0.5-1.4) 12/24/22 Blood Urea Nitrogen 13 mg/dL (9-16) 12/24/22 Sodium 140 mmol/L (135-145) 12/24/22 Potassium 3.8 mmol/L (3.3-5.1) 12/24/22 Chloride 105 mmol/L (96-108) 12/24/22 Carbon Dioxide 26 mmol/L (22-29) 12/24/22 Calcium 9.6 mg/dL (8.4-10.2) 12/24/22 AST 24 U/L (5-37) 12/24/22 ALT 27 U/L (0-40) 12/24/22 Total Protein 7.4 g/dL (6.5-8.0) 12/24/22 Albumin 4.2 g/dL (3.5-5.0) 12/24/22 [facility] Medical History Hypertension Primary osteoarthritis of right knee Primary osteoarthritis of left knee JOHN (obstructive sleep apnea) History of torn meniscus of left knee GERD (gastroesophageal reflux disease) Family History Father No problems noted. 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 Cognitive needs: No Hearing needs: No Vision needs: No Assessment & Plan Assessment & Plan (1) Prediabetes: Code(s): R73.03 - Prediabetes Plan: wt: 120 kg Est kcal needs as per MSJ: 2500 (40% carb, 30% protein/fat) Est fluid needs as per 25-30 ml/d: 3000 Est prot per day as per 1 g/kg bw: 120 Recommend fiber intake : 8-10 g per day and gradually increase to 25-28 g per day for women and 35-38 g for men or as tolerated Recommend sodium intake per day : less than 2000 mg Educated patient on: ( R = reviewed V = verbalizes understanding N/R = needs review N/A = not applicable Food sources of carbohydrate, adequate serving sizes and its role in various health conditions: R Differences between complex carbohydrates a simple carbohydrates, role of fiber in diet: R Differences between types of fats and role in diet (mono on saturated fat fatty acids, saturated fatty acids, trans fats): R lean protein sources of foods: R Food sources of sodium in salt and healthy modifications for heart health in kidney health: NR Healthy plate method concept: R Physical activity: Benefits a precaution: R Hypoglycemia protocol (rule of 15): NR Dietary prevention of Hyperglycemia: R Patient Instructions: Include soluble fiber in your diet ( oatmeal at least twice a a week, include beans/legumes as low fat/high fiber sources of protein ) weight loss goal 5-8 lbs less by next follow up Coding Level of Care Code Nutr Indiv Subseq (79903) Diagnoses Prediabetes R73.03 Time Spent (min) 30
[2023-03-11 14:43] VITALS: BMI 38.8
== END 2023-03-11 15:08 | disposition home or self-care (01) ==
PROVIDERS: PCP Nurse Practitioner Family; Visit Provider Dietitian, Registered
DX: R73.03 Prediabetes (principal)

== ENCOUNTER → 2023-03-11 14:41 | Outpatient (BNVA) | payer OTHER, SELFPAY | PROVIDERS: PCP Nurse Practitioner Family; Visit Provider Dietitian, Registered | DX: Z71.3 Dietary counseling and surveillance (principal); R73.03 Prediabetes | CPT/HCPCS: 97803 ==

== ENCOUNTER 2023-03-21 10:18 | Outpatient (AMB) | payer OTHER, SELFPAY ==
--- NOTE | 2023-03-21 10:20 | MHC.OFFVIS ---
Intake Intake Visit Reasons: 2 week follow up Left Micro 03/08/23 Intake Note: 2 week fu left micro 03/08/23 Pt says he is doing ok he still has some spots that still have some bruising and tenderness but overall leg is healing well. He says the itching and burning has improved Allergies prednisone [PREDNISONE] Allergy (Severe, Verified 03/08/23 10:56) GI BLEED, bleeding from lining of stomach prednisolone Allergy (Unknown, Verified 03/08/23 10:56) stomach upset cat, dogs Allergy (Unknown, Uncoded 03/08/23 10:56) Itching HPI 2 week follow up Left Micro 03/08/23 HPI Details Very pleasant 57-year-old gentleman presents for follow-up status post left lower extremity microphlebectomy. He reports he is doing extremely well postprocedure. He does have some itching but overall he reports that the swelling and discomfort have significantly decreased. He is concerned about his right lower extremity varicosities. He now presents for postprocedure follow-up. [facility] Medical History Hypertension Primary osteoarthritis of right knee Primary osteoarthritis of left knee JOHN (obstructive sleep apnea) History of torn meniscus of left knee GERD (gastroesophageal reflux disease) Family History Father No problems noted. 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 Cognitive needs: No Hearing needs: No Vision needs: No Review of Systems Const Reports as per HPI ENT Reports no additional complaints Card Denies chest pain, Denies chest pain at rest and Denies chest pain with activity Resp Denies chest congestion and Denies cough GI Reports no additional complaints Musc Details: pain over varicosities, aching of lower extremities, swelling, cramping, heaviness and tiredness, itching Denies abnormal gait Skin/Breast Reports pruritus and Denies wounds Neuro Reports no additional complaints and Denies abnormal gait Psych Denies no additional complaints Physical Exam Const General: cooperative, healthy appearing and comfortable Orientation/consciousness: oriented to person, oriented to place and oriented to time Neck Carotids: no bruits Chest Chest palpation & inspection: normal inspection of the chest and normal palpation of entire chest wall Resp Effort & Inspection: normal respiratory effort and able to speak in complete sentences Cardio Rate: regular rate Heart sounds: S1 normal heart sound present and S2 normal heart sound present Peripheral pulses: Peripheral pulses 2+ throughout GI Inspection: Yes normal to inspection Skin Other: +2 edema, large rope-like varicosities greater than 4 mm right calf CEAP Classification C4 - skin color changes Ep - Etiology Primary As - superficial veins P - reflux General skin exam: dry skin Neuro General: oriented to person, oriented to place and oriented to time Extrem Right lower extremity: full ROM, normal capillary refill and edema Left lower extremity: full ROM, normal capillary refill and edema Psych Mental Status: mental status grossly normal Results Reviewed Results Reviewed: Brief summary of venous insufficiency testing is as follows: right great saphenous vein: negative right small saphenous vein: negative right accessory vein: none present left great saphenous vein: negative left small saphenous vein: negative left accessory vein: none present Please note there is no evidence of any venous aneurysms or significant tortuosity Assessment & Plan Assessment & Plan (1) Varicose veins of right lower extremity with inflammation: Code(s): I83.11 - Varicose veins of right lower extremity with inflammation Plan: This patient has varicose veins with inflammation. They continue to be a source of discomfort for the patient. The patient has tried conservative treatment with compression, leg elevation and exercise program for over 3 months time. They have been compliant with all treatment. This has provided minimal relief for the patient. I do not anticipate this course of treatment will alter the underlying etiology. The patient has been scheduled for lower extremity venous treatment inclusive of --- right lower extremity microphlebectomy. Risks, benefits, and complications of this procedure has been discussed in detail with the patient including but not limited to bleeding, infection, and the development of a DVT. The patient has demonstrated a clear understanding and has consented. We will schedule the patient as soon as possible. Thank you for allowing us to participate in this patient's care. If there are any questions or concerns please do not hesitate to contact us. (2) Varicose veins of left lower extremity with inflammation: Comment: 03/08/2023-left leg microphlebectomy Code(s): I83.12 - Varicose veins of left lower extremity with inflammation Coding Level of Care Code Est Pt Level 3 (00601) Diagnoses Varicose veins of right lower extremity with inflammation I83.11 Varicose veins of left lower extremity with inflammation I83.12
== END 2023-03-21 10:50 | disposition home or self-care (01) ==
PROVIDERS: PCP Nurse Practitioner Family; Visit Provider Surgery Vascular Surgery
DX: I83.11 Varicose veins of right lower extremity with inflammation (principal); I83.12 Varicose veins of left lower extremity with inflammation
CPT/HCPCS: 99213

== ENCOUNTER → 2023-03-21 10:18 | Outpatient (BNVA) | payer OTHER, SELFPAY | PROVIDERS: PCP Nurse Practitioner Family; Visit Provider Surgery Vascular Surgery ==

== ENCOUNTER 2023-04-08 10:08 | Outpatient (REF) | payer OTHER, SELFPAY ==
--- NOTE | ~2023-04-08 | US_ITS ---
EXAMINATION: US RETROPERITONEAL COMPLETE (RENAL) CLINICAL INFORMATION: Other difficulties with micturition. Please measure prostate. COMPARISON: None available. TECHNIQUE: Real-time imaging of the kidneys and bladder. FINDINGS: RIGHT KIDNEY: 12.1 x 6.2 x 5.9 cm (SAG x AP x TRV). The kidney is normal in size, contour, and echogenicity. Renal cortical thickness is normal. No calculi or focal parenchymal lesions. No hydronephrosis. LEFT KIDNEY: 11.7 x 6.0 x 6.0 cm (SAG x AP x TRV). The kidney is normal in size, contour, and echogenicity. Renal cortical thickness is normal. No calculi or focal parenchymal lesions. No hydronephrosis. BLADDER: Well distended. Bilateral ureteral jets are demonstrated. Prevoid bladder volume is 283 mL. Postvoid bladder volume is 38.5 mL. Inferior bladder wall soft tissue density/irregularity is identified on prevoid imaging, with polypoid appearance persisting on postvoid image /, potentially from extrinsic compression from heterogeneous prostate. ADDITIONAL FINDINGS: Prostate is irregular and heterogeneous with volume of 43.9 mL. There is mass effect on the inferior aspect of the urinary bladder. US/US retroperitoneal comp IMPRESSION: Nonhydronephrotic kidneys. Enlarged irregular prostate possibly accounting for inferior bladder pre and post void irregularity/soft tissue density. To exclude intravesicular lesion, CT urogram recommended.
== END 2023-04-08 10:09 | disposition home or self-care (01) ==
LOC: HO.HMGCX 10:08
PROVIDERS: PCP Nurse Practitioner Family; Visit Provider Urology
DX: R39.198 Other difficulties with micturition (principal)
CPT/HCPCS: 76770

== ENCOUNTER 2023-04-19 08:40 | Outpatient (AMB) | payer OTHER, SELFPAY ==
--- NOTE | 2023-04-19 09:57 | A.OFFVIS_ITS ---
Intake Intake Visit Reasons: Right LE Micro Allergies prednisone [PREDNISONE] Allergy (Severe, Verified 03/08/23 10:56) GI BLEED, bleeding from lining of stomach prednisolone Allergy (Unknown, Verified 03/08/23 10:56) stomach upset cat, dogs Allergy (Unknown, Uncoded 03/08/23 10:56) Itching PFSH Medical History Hypertension Primary osteoarthritis of right knee Primary osteoarthritis of left knee JOHN (obstructive sleep apnea) History of torn meniscus of left knee GERD (gastroesophageal reflux disease) Family History Father No problems noted. 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 Varicose veins were marked in the standing position on the right leg and the patient was then placed in the supine position. The right lower extremity was prepared and draped to allow knee flexion in the sterile field. The patient had large superficial varicose veins with significant symptoms of pain. It was therefore determined to perform microphlebectomies of the clusters of varicose veins. The patient had bulging varicose veins which were previously marked in the standing position. A small stab incision was made longitudinally directly overlying the varicose vein in the calf and the varicose vein was grasped with a hemostat aided by a vein hook. It was then dissected as far proximally and distally as possible and avulsed. A total of 25 stab incisions were made and the procedure of stab phlebectomies was repeated 25 times. Hemostasis was checked and stab incision sites were closed with steri-strips and sterile dressing was given with gauze and krilex wrap followed by an pratik bandage. There were no complications and blood loss was minimal. Post-Op instructions were given and a follow-up appointment was recommended. 22418 - Stab Phlebectomy >20 All charges added?: Procedure code (CPT) selection complete Assessment & Plan Assessment & Plan (1) Varicose veins of right lower extremity with inflammation: Code(s): I83.11 - Varicose veins of right lower extremity with inflammation Plan: See op note Coding Level of Care Code Procedure Only Diagnoses Varicose veins of right lower extremity with inflammation I83.11 CPT Codes Details - Vascular 6: 61410 - Stab Phlebectomy >20 ([id number])
== END 2023-04-19 10:25 | disposition home or self-care (01) ==
PROVIDERS: PCP Nurse Practitioner Family; Visit Provider Surgery Vascular Surgery
DX: I83.11 Varicose veins of right lower extremity with inflammation (principal)
CPT/HCPCS: 37766

== ENCOUNTER → 2023-04-19 08:40 | Outpatient (BNVA) | payer OTHER, SELFPAY | PROVIDERS: PCP Nurse Practitioner Family; Visit Provider Surgery Vascular Surgery | DX: I83.11 Varicose veins of right lower extremity with inflammation (principal) | CPT/HCPCS: 37766 ==

== ENCOUNTER 2023-05-02 11:09 | Outpatient (AMB) | payer OTHER, SELFPAY ==
--- NOTE | 2023-05-02 11:11 | A.OFFVIS_ITS ---
Intake Vital Signs 05/02/23 11:12 Height 5 ft 9 in Weight 263 lb BMI 38.8 BP 146/84 H Blood Pressure Location Rt brachial Position Sitting Pulse 91 Pulse Source Pulse Oximeter Pulse Oximetry (%) 95 Oxygen Delivery Method Room Air Intake Visit Reasons: 2 wk R Micro 04/19/23, Left Touch up Intake Note: Pt presents to the office today for a 2 week R micro 04/19/23, Left touch up. Pt states he is feeling well and denies any swelling or pain. Pt states he has some tenderness in some areas but denies any severe pain. Allergies prednisone [PREDNISONE] Allergy (Severe, Verified 05/02/23 11:13) GI BLEED, bleeding from lining of stomach prednisolone Allergy (Unknown, Verified 05/02/23 11:13) stomach upset cat, dogs Allergy (Unknown, Uncoded 05/02/23 11:13) Itching HPI 2 wk R Micro 04/19/23, Left Touch up HPI Details Very pleasant 57-year-old gentleman presents for follow-up status post right lower extremity microphlebectomy. Reports no other interval issues. In general reports that the veins are healing well and the prior itching sensation has decreased. He now presents for routine postprocedure follow-up [facility] Medical History Hypertension Primary osteoarthritis of right knee Primary osteoarthritis of left knee JOHN (obstructive sleep apnea) History of torn meniscus of left knee GERD (gastroesophageal reflux disease) Family History Father No problems noted. 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 Cognitive needs: No Hearing needs: No Vision needs: No Review of Systems Const Reports as per HPI ENT Reports no additional complaints Card Denies chest pain, Denies chest pain at rest and Denies chest pain with activity Resp Denies chest congestion and Denies cough GI Reports no additional complaints Musc Details: pain over varicosities, aching of lower extremities, swelling, cramping, heaviness and tiredness, itching Denies abnormal gait Skin/Breast Reports pruritus and Denies wounds Neuro Reports no additional complaints and Denies abnormal gait Psych Denies no additional complaints Physical Exam Vital Signs: Last Vital Signs Pulse 91 05/02/23 11:12 BP 146/84 H 05/02/23 11:12 Pulse Ox 95 05/02/23 11:12 Oxygen Delivery Method Room Air 05/02/23 11:12 BMI result Body Mass Index 38.8 Const General: cooperative, healthy appearing and comfortable Orientation/consciousness: oriented to person, oriented to place and oriented to time Neck Carotids: no bruits Chest Chest palpation & inspection: normal inspection of the chest and normal palpation of entire chest wall Resp Effort & Inspection: normal respiratory effort and able to speak in complete sentences Cardio Rate: regular rate Heart sounds: S1 normal heart sound present and S2 normal heart sound present Peripheral pulses: Peripheral pulses 2+ throughout GI Inspection: Yes normal to inspection Skin Other: +2 edema, Right leg mild bruising General skin exam: dry skin Neuro General: oriented to person, oriented to place and oriented to time Extrem Right lower extremity: full ROM, normal capillary refill and edema Left lower extremity: full ROM, normal capillary refill and edema Psych Mental Status: mental status grossly normal Assessment & Plan Assessment & Plan (1) Varicose veins of right lower extremity with inflammation: Comment: 04/19/2023 - right leg microphlebectomy Code(s): I83.11 - Varicose veins of right lower extremity with inflammation Plan: The patient has done extremely well with all venous treatments. Patient's may often experience postprocedure phlebitic episodes and I have discussed with the patient use of warm compresses and NSAIDS if tolerated for pain discomfort. In addition, I have discussed continued conservative measures including use of compression, leg elevation, and exercise. I have requested that the patient follow-up with us in approximately 3 months time to reassess if there are any additional or residual varicosities at that time. Thank you for allowing us to assist in his care. (2) Varicose veins of left lower extremity with inflammation: Comment: 03/08/2023-left leg microphlebectomy Code(s): I83.12 - Varicose veins of left lower extremity with inflammation Plan: See above Coding Level of Care Code Est Pt Level 3 (01325) Diagnoses Varicose veins of right lower extremity with inflammation I83.11 Varicose veins of left lower extremity with inflammation I83.12
[2023-05-02 11:12] VITALS: BP 146/84; PULSE 91; O2SAT 95; BMI 38.8
== END 2023-05-02 11:32 | disposition home or self-care (01) ==
PROVIDERS: PCP Nurse Practitioner Family; Visit Provider Surgery Vascular Surgery
DX: I83.11 Varicose veins of right lower extremity with inflammation (principal); I83.12 Varicose veins of left lower extremity with inflammation
CPT/HCPCS: 99213

== ENCOUNTER → 2023-05-02 11:09 | Outpatient (BNVA) | payer OTHER, SELFPAY | PROVIDERS: PCP Nurse Practitioner Family; Visit Provider Surgery Vascular Surgery ==

== ENCOUNTER 2023-05-03 11:53 | Outpatient (AMB) | payer OTHER, SELFPAY ==
--- NOTE | 2023-05-03 12:04 | A.OFFVIS_ITS ---
Intake Intake Visit Reasons: 3m/US/PSA Intake Note: Patient presents today for a follow-up on US and PSA Results: Meds- Sildenafil Allergies to Antibiotic- No Known Allergies Blood Thinner- None Sap Specialist Required: No Accompanied by: Self / Same As Patient Allergies prednisone [PREDNISONE] Allergy (Severe, Verified 05/02/23 11:13) GI BLEED, bleeding from lining of stomach prednisolone Allergy (Unknown, Verified 05/02/23 11:13) stomach upset cat, dogs Allergy (Unknown, Uncoded 05/02/23 11:13) Itching HPI HPI Comments History of Present Illness Details Emmanuel is a 57-year-old male who presents today to the office for FU. LV--01/18/2023? 05/03/23-- He was initially evaluated on 01/18/23 for complaints of incomplete bladder emptying and ED. AUA symptom score: 14, and IIEF-5 questionnaire was 15. PSA results from 06/18/2022 revealed 2.64 ng/mL. He states that he is not emptying the bladder well. He complains of a weak urinary stream. Renal and bladder US were ordered. Cialis 5 mg was ordered. Discussed Cont with Viagra on demand The patient states the Cialis is working and he does not need to use the viagra. I reviewed 04/08/23--renal US results- question bladder lesion, Prostate is irregular and heterogeneous with volume of 43.9 mL. There is mass effect on the inferior aspect of the urinary bladder. I reviewed labs--02/04/23--PSA -- 2.87 Evaluation today?UA? leukocytes: negative; blood: negative. Plan: FU for cysto Cont with Cialis 5 mg daily [facility] Medical History Hypertension Primary osteoarthritis of right knee Primary osteoarthritis of left knee JOHN (obstructive sleep apnea) History of torn meniscus of left knee GERD (gastroesophageal reflux disease) Family History Father No problems noted. 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 Cognitive needs: No Hearing needs: No Vision needs: No Review of Systems Const All systems reviewed & are unremarkable except as noted in HPI and below Reports no additional complaints Eyes Reports no additional complaints ENT Reports no additional complaints Card Denies dyspnea Resp Denies cough and Denies dyspnea GI Reports no additional complaints Musc Reports no additional complaints Skin/Breast Denies rash and Denies unusual bruising Neuro Reports no additional complaints Psych Reports no additional complaints Endo Reports no additional complaints Paulie/Lymph Reports no additional complaints Aller/Immun Reports no additional complaints Results Reviewed Results Reviewed: Date of Service: 04/08/23 EXAMINATION: US RETROPERITONEAL COMPLETE (RENAL) CLINICAL INFORMATION: Other difficulties with micturition. Please measure prostate. COMPARISON: None available. TECHNIQUE: Real-time imaging of the kidneys and bladder. FINDINGS: RIGHT KIDNEY: 12.1 x 6.2 x 5.9 cm (SAG x AP x TRV). The kidney is normal in size, contour, and echogenicity. Renal cortical thickness is normal. No calculi or focal parenchymal lesions. No hydronephrosis. LEFT KIDNEY: 11.7 x 6.0 x 6.0 cm (SAG x AP x TRV). The kidney is normal in size, contour, and echogenicity. Renal cortical thickness is normal. No calculi or focal parenchymal lesions. No hydronephrosis. BLADDER: Well distended. Bilateral ureteral jets are demonstrated. Prevoid bladder volume is 283 mL. Postvoid bladder volume is 38.5 mL. Inferior bladder wall soft tissue density/irregularity is identified on prevoid imaging, with polypoid appearance persisting on postvoid image , potentially from extrinsic compression from heterogeneous prostate. ADDITIONAL FINDINGS: Prostate is irregular and heterogeneous with volume of 43.9 mL. There is mass effect on the inferior aspect of the urinary bladder. IMPRESSION: Nonhydronephrotic kidneys. Enlarged irregular prostate possibly accounting for inferior bladder pre and post void irregularity/soft tissue density. To exclude intravesicular lesion, CT urogram recommended. Assessment & Plan Assessment & Plan (1) Slowing of urinary stream: Code(s): R39.198 - Other difficulties with micturition (2) Screening PSA (prostate specific antigen): Code(s): Z12.5 - Encounter for screening for malignant neoplasm of prostate (3) Abnormal finding on ultrasound: Code(s): R93.89 - Abnormal findings on diagnostic imaging of other specified body structures (4) Enlarged prostate: Code(s): N40.0 - Benign prostatic hyperplasia without lower urinary tract symptoms Plan Cont cialis FU cysto Patient Instructions: The patient had an opportunity to ask questions regarding treatment plan. All questions were answered. Imaging, Laboratory studies and physical exam results were discussed and reviewed in detail. No major barriers to understanding were identified. The patient expressed understanding and agreement with the above treatment plan. The patient is aware they should contact our office by phone for worsening of their current condition or the appearance of new symptoms. Compliance is encouraged with any medications and followup testing that is ordered. It is a privilege to be allowed the opportunity to participate in the urologic care of your patient. If you have any questions or concerns regarding treatment for the above conditions please do not hesitate to contact me. The office telephone contact is [phone]. This note is constructed in part using voice recognition software. While every effort has been made to ensure accuracy log chain worker errors may have been included. Yours sincerely, Pierre Cartwright MD Coding Level of Care Code Est Pt Level 4 (84750) Diagnoses Slowing of urinary stream R39.198 Screening PSA (prostate specific antigen) Z12.5 Abnormal finding on ultrasound R93.89 Enlarged prostate N40.0
== END 2023-05-03 12:50 | disposition home or self-care (01) ==
PROVIDERS: PCP Nurse Practitioner Family; Visit Provider Urology
DX: R39.198 Other difficulties with micturition (principal); Z12.5 Encounter for screening for malignant neoplasm of prostate; R93.89 Abnormal findings on diagnostic imaging of other specified body structures; N40.0 Benign prostatic hyperplasia without lower urinary tract symptoms
CPT/HCPCS: 99214

== ENCOUNTER → 2023-05-03 11:53 | Outpatient (BNVA) | payer OTHER, SELFPAY | PROVIDERS: PCP Nurse Practitioner Family; Visit Provider Urology ==

== ENCOUNTER 2023-06-07 10:58 | Outpatient (AMB) | payer OTHER, SELFPAY ==
--- NOTE | 2023-06-07 11:15 | A.OFFVIS_ITS ---
Intake Intake Visit Reasons: cysto Intake Note: Patient presents today for a CYSTOSCOPY Procedure: Meds: Tadalafil Allergies to Antibiotic: No Known Allergies Blood Thinner: None Urinalysis test clear for Cysto? YES Disposable Uro-G Cystoscope Cannula: Lot: [id number] Exp: 09/16/2024 K 12 Principal Required: No Accompanied by: Self / Same As Patient Allergies prednisone [PREDNISONE] Allergy (Severe, Verified 06/07/23 11:15) GI BLEED, bleeding from lining of stomach prednisolone Allergy (Unknown, Verified 06/07/23 11:15) stomach upset cat, dogs Allergy (Unknown, Uncoded 06/07/23 11:15) Itching Medication List - Last Reconciled 06/07/23 by Pierre Cartwright MD lisinopril 20 mg PO DAILY 30 days omeprazole 40 mg (2 x 20 mg) PO DAILY sertraline 200 mg (2 x 100 mg) PO DAILY tadalafil (Cialis) 5 mg PO DAILY HPI HPI Comments History of Present Illness Details Emmanuel is a 57-year-old male who presents today to the office for Office Cysto. LV--05/03/23?at that time reviewed renal US which had question bladder lesion. 06/07/23-- Emmanuel was initially evaluated on 01/18/23 for complaints of incomplete bladder emptying and ED. AUA symptom score: 14, and IIEF-5 questionnaire was 15. PSA results from 06/18/2022 revealed 2.64 ng/mL. He was prescribed Cialis 5 mg daily and states the medication is working well. Office cystoscopy: Evaluation today?06/07/23-- Office cystoscopy- mild trabeculations, bilobar enlargement of prostate, no suspicious lesions noted Review of Chart: 04/08/23--renal US results- Prostate is irregular and heterogeneous with volume of 43.9 mL. There is mass effect on the inferior aspect of the urinary bladder. 02/04/23--PSA -- 2.87 Plan: FU in 4 months, PSA screening Cont with Cialis 5 mg daily, Viagra prn on demand [facility] Medical History (Updated 06/07/23 @ 12:57 by Pierre Cartwright MD) Screening PSA (prostate specific antigen) Hypertension Primary osteoarthritis of right knee Primary osteoarthritis of left knee JOHN (obstructive sleep apnea) History of torn meniscus of left knee GERD (gastroesophageal reflux disease) Family History Father No problems noted. 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 Cognitive needs: No Hearing needs: No Vision needs: No Review of Systems Const All systems reviewed & are unremarkable except as noted in HPI and below Reports no additional complaints Eyes Reports no additional complaints ENT Reports no additional complaints Card Denies dyspnea Resp Denies cough and Denies dyspnea GI Reports no additional complaints Musc Reports no additional complaints Skin/Breast Denies rash and Denies unusual bruising Neuro Reports no additional complaints Psych Reports no additional complaints Endo Reports no additional complaints Paulie/Lymph Reports no additional complaints Aller/Immun Reports no additional complaints Office Procedures Cystoscopy Consent Discussed risk and benefit or proposed procedure with the patient. Information consent for procedure given to the patient. Discussed technical aspects, risks, benefits and alternatives in full. Addressed all of the patient's questions and concerns regarding the procedure. The patient demonstrated knowledge and understanding. They wish to proceed with this procedure. Preparation The patient was prepped in the usual manner. A administrative executive was present and in the room. Genitalia was prepped with betadine solution in a sterile manner. Lidocaine Jelly 2% was placed into the urethra and 16Fr flexible Olympus cystoscope was inserted into the meatus after adequate lubrication. Procedure Time out per protocol performed. Bladder Inspection Bladder Inspection: The bladder was inspected in its entirety with utilization retroflexion displaying: Tumor(s): none visualized Trabeculation: Mild Mucosal Erthema: N/A Orifices: normal shape and position Urethra: normal Cystoscopy findings: bilobar enlargement of prostate, urethra within normal limitis, no suspicious lesions noted [id number] DISPOSABLE SCOPE URO-G FLEXIBLE SCOPE Procedure code (CPT) selection complete Office Meds lidocaine HCl 2 % mucosal jelly in applicator Performing Provider: Pierre Cartwright MD Performing Location: [facility] [place] [facility] Administered by: Jefe Simmons LPN on 06/07/23 11:24 Dose Route Admin Location Dispensed Lot Number Expiration Date ND Development Scientist 10 mL intra-urethral 20 mL naproxen 500 mg tablet Performing Provider: Pierre Cartwright MD Performing Location: [facility] [place] [facility] Administered by: Jefe Simmons LPN on 06/07/23 11:24 Dose Route Admin Location Dispensed Lot Number Expiration Date ND Development Scientist 500 mg PO 1 tab ciprofloxacin HCl 500 mg tablet Performing Provider: Pierre Cartwright MD Performing Location: [facility] [place] [facility] Administered by: Jefe Simmons LPN on 06/07/23 11:24 Dose Route Admin Location Dispensed Lot Number Expiration Date NDC Development Scientist 500 mg PO 1 tab Results AMB Urinalysis, Automated UA Leukoctes 0 Freda/uL Last Edit by BARRINGTON Neely on 06/07/23 11:19 UA Nitrite Negative Last Edit by BARRINGTON Neely on 06/07/23 11:19 UA Urobilinogen 0.2 mg/dL Last Edit by BARRINGTON Neely on 06/07/23 11:1 9 UA Protein 0 mg/dL Last Edit by BARRINGTON Neely on 06/07/23 11:19 UA pH 6.0 Last Edit by BARRINGTON Neely on 06/07/23 11:19 UA Blood 0 Poli/uL Last Edit by BARRINGTON Neely on 06/07/23 11:19 UA Specific Sondheimer 1.020 Last Edit by BARRINGTON Neely on 06/07/23 11: 19 UA Ketone Negative Last Edit by BARRINGTON Neely on 06/07/23 11:19 UA Bilirubin 0 mg/dL Last Edit by BARRINGTON Neely on 06/07/23 11:19 UA Glucose 0 mg/dL Last Edit by BARRINGTON Neely on 06/07/23 11:19 Results Reviewed Results Reviewed: Laboratory Last Values Urine pH (Auto) 6.0 06/07/23 11:18 Specific S[place]heimer (Auto) 1.020 06/07/23 11:18 Urine Protein (Auto) 0 mg/dL 06/07/23 11:18 Glucose (UA)(Auto) 0 mg/dL 06/07/23 11:18 Urine Ketones (Auto) Negative 06/07/23 11:18 Urine Blood (Auto) 0 Poli/uL 06/07/23 11:18 Urine Nitrite (Auto) Negative 06/07/23 11:18 Urine Bilirubin (Auto) 0 mg/dL 06/07/23 11:18 Urine Urobilinogen (Auto) 0.2 mg/dL 06/07/23 11:18 Leukocyte Esterase (Auto) 0 Freda/uL 06/07/23 11:18 Date of Service: 04/08/23 Procedure(s): US retroperitoneal comp Accession Number(s): [id number] cc: Pierre Cartwright MD; [place] [facility]~ EXAMINATION: US RETROPERITONEAL COMPLETE (RENAL) CLINICAL INFORMATION: Other difficulties with micturition. Please measure prostate. COMPARISON: None available. TECHNIQUE: Real-time imaging of the kidneys and bladder. FINDINGS: RIGHT KIDNEY: 12.1 x 6.2 x 5.9 cm (SAG x AP x TRV). The kidney is normal in size, contour, and echogenicity. Renal cortical thickness is normal. No calculi or focal parenchymal lesions. No hydronephrosis. LEFT KIDNEY: 11.7 x 6.0 x 6.0 cm (SAG x AP x TRV). The kidney is normal in size, contour, and echogenicity. Renal cortical thickness is normal. No calculi or focal parenchymal lesions. No hydronephrosis. BLADDER: Well distended. Bilateral ureteral jets are demonstrated. Prevoid bladder volume is 283 mL. Postvoid bladder volume is 38.5 mL. Inferior bladder wall soft tissue density/irregularity is identified on prevoid imaging, with polypoid appearance persisting on postvoid image , potentially from extrinsic compression from heterogeneous prostate. ADDITIONAL FINDINGS: Prostate is irregular and heterogeneous with volume of 43.9 mL. There is mass effect on the inferior aspect of the urinary bladder. US/US retroperitoneal comp IMPRESSION: Nonhydronephrotic kidneys. Enlarged irregular prostate possibly accounting for inferior bladder pre and post void irregularity/soft tissue density. To exclude intravesicular lesion, CT urogram recommended. Assessment & Plan Assessment & Plan (1) Slowing of urinary stream: Code(s): R39.198 - Other difficulties with micturition (2) Abnormal finding on ultrasound: Code(s): R93.89 - Abnormal findings on diagnostic imaging of other specified body structures (3) Enlarged prostate: Code(s): N40.0 - Benign prostatic hyperplasia without lower urinary tract symptoms Plan FU in 4 months, PSA screening Cont with Cialis 5 mg daily, Viagra prn on demand Orders: Orders AMB Urinalysis Automated Today Z13.9 - Encounter for screening, unspecified AMB Cystoscopy Today N40.0 - Benign prostatic hyperplasia without lower urinary tract symptoms, R33.9 - Retention of urine, unspecified, R39.12 - Poor urinary stream PSA,Total (Free>4and<10) 3 Months N40.0 - Benign prostatic hyperplasia without lower urinary tract symptoms, Z12.5 - Encounter for screening for malignant neoplasm of prostate Patient Instructions: The patient had an opportunity to ask questions regarding treatment plan. All questions were answered. Imaging, Laboratory studies and physical exam results were discussed and reviewed in detail. No major barriers to understanding were identified. The patient expressed understanding and agreement with the above treatment plan. The patient is aware they should contact our office by phone for worsening of their current condition or the appearance of new symptoms. Compliance is encouraged with any medications and followup testing that is ordered. It is a privilege to be allowed the opportunity to participate in the urologic care of your patient. If you have any questions or concerns regarding treatment for the above conditions please do not hesitate to contact me. The office telephone contact is [phone]. This note is constructed in part using voice recognition software. While every effort has been made to ensure accuracy filler blender errors may have been included. Yours sincerely, Pierre Cartwright MD Coding Level of Care Code Procedure Only Diagnoses Slowing of urinary stream R39.198 Abnormal finding on ultrasound R93.89 Enlarged prostate N40.0 CPT Codes Cystoscopy - CPT: 12778-[id number] ([id number])
== END 2023-06-07 12:14 | disposition home or self-care (01) ==
LOC: HO.HUSH 10:58
PROVIDERS: PCP Nurse Practitioner Family; Visit Provider Urology
DX: R93.89 Abnormal findings on diagnostic imaging of other specified body structures (principal); N40.0 Benign prostatic hyperplasia without lower urinary tract symptoms; R33.9 Retention of urine, unspecified; R39.12 Poor urinary stream; R39.198 Other difficulties with micturition; Z13.9 Encounter for screening, unspecified
CPT/HCPCS: 52000

== ENCOUNTER → 2023-06-07 10:58 | Outpatient (BNVA) | payer OTHER, SELFPAY | PROVIDERS: PCP Nurse Practitioner Family; Visit Provider Urology | DX: N40.1 Benign prostatic hyperplasia with lower urinary tract symptoms (principal); R39.198 Other difficulties with micturition; R33.8 Other retention of urine; R39.12 Poor urinary stream; R39.89 Other symptoms and signs involving the genitourinary system | CPT/HCPCS: 52000; 81003 ==

== ENCOUNTER 2023-07-22 10:44 | Outpatient (AMB) | payer SELFPAY ==
--- NOTE | 2023-07-22 11:37 | AM.OFFWIN_ITS ---
Intake Vital Signs 07/22/23 11:45 Height 5 ft 9 in Weight 266 lb 6 oz BMI 39.3 BP 138/88 Blood Pressure Location Lt brachial Position Sitting Pulse 71 Pulse Source Pulse Oximeter Temp 98.4 F Temp Source Oral Pulse Oximetry (%) 97 Oxygen Delivery Method Room Air Intake Visit Reasons: EP tick bite on back rash spreading body Intake Note: Pt is here c/o tick bite on back that has caused a rash spreading over body. PT approves with results Patient Tobacco Use Status: Never used Tobacco Allergies prednisone [PREDNISONE] Allergy (Severe, Verified 06/07/23 11:15) GI BLEED, bleeding from lining of stomach prednisolone Allergy (Unknown, Verified 06/07/23 11:15) stomach upset cat, dogs Allergy (Unknown, Uncoded 06/07/23 11:15) Itching HPI HPI Comments History of Present Illness Details This is a 57-year-old male with past medical history of gastroesophageal reflux disease, hypertension, BPH, anxiety and depression presenting for evaluation of a tick bite on his back and a new rash that has developed on both his back and his abdomen. Patient states that he removed a small take from his back yesterday however is unaware of how long the tick was present. The patient describes red lesions on his back that has spread to his left abdomen. Patient denies having any fevers, chills, fatigue and has never been diagnosed with a tick-borne illness before. [facility] Medical History Screening PSA (prostate specific antigen) Hypertension Primary osteoarthritis of right knee Primary osteoarthritis of left knee JOHN (obstructive sleep apnea) History of torn meniscus of left knee GERD (gastroesophageal reflux disease) Family History Father No problems noted. 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 Cognitive needs: No Hearing needs: No Vision needs: No Review of Systems Const All systems reviewed & are unremarkable except as noted in HPI and below Denies chills, Denies fatigue and Denies fever(s) Eyes Reports no additional complaints ENT Reports no additional complaints Card Reports no additional complaints GI Reports no additional complaints Skin/Breast Reports changing lesions Neuro Reports no additional complaints Endo Denies fatigue Physical Exam Vital Signs: Last Vital Signs Temp 98.4 F 07/22/23 11:45 Pulse 71 07/22/23 11:45 BP 138/88 07/22/23 11:45 Pulse Ox 97 07/22/23 11:45 Oxygen Delivery Method Room Air 07/22/23 11:45 BMI result Body Mass Index 39.3 Patient is afebrile Const General: cooperative, healthy appearing, comfortable and well developed; No ill appearing Nutritional Appearance: well nourished and overweight Orientation/consciousness: patient oriented x3 Limitations: no limitations Skin Other: single excoriation left posterior trunk with no evidence of residual tick; there are multiple erythematous macules on the left and right posterior trunk extending to the LUQ abdomen that have irregular borders and are <2cm in diameter. Neuro General: patient oriented x3 Psych Appearance: grossly normal Mental Status: mental status grossly normal Insight: Good insight present (Psych) Judgement: Good judgement present (Psych) Assessment & Plan Assessment & Plan (1) Tick bite of back wall of thorax: Comment: Given the unknown chronicity of the tick bite in addition to the new erythematous lesions on the anterior and posterior trunk, patient will be tested for all tick borne illness and started on doxycycline. Code(s): S20.469A - Insect bite (nonvenomous) of unspecified back wall of thorax, initial encounter; W57.XXXA - Bitten or stung by nonvenomous insect and other nonvenomous arthropods, initial encounter Plan: Tick-borne disease testing; doxycycline b.i.d. times 21 days. Patient to follow-up with his primary care provider in August 2023. Orders: Orders Lyme IgG/IgM w/reflex to WB 07/22/23 S20.469A - Insect bite (nonvenomous) of unspecified back wall of thorax, initial encounter, W57.XXXA - Bitten or stung by nonvenomous insect and other nonvenomous arthropods, initial encounter Tick-borne Disease Molecular 03/18/24 S20.469A - Insect bite (nonvenomous) of unspecified back wall of thorax, initial encounter, W57.XXXA - Bitten or stung by nonvenomous insect and other nonvenomous arthropods, initial encounter Medications: New doxycycline hyclate 100 mg PO BID 21 days 42 caps 0RF Coding Level of Care Code Est Pt Level 3 (12423) Diagnoses Tick bite of back wall of thorax S20.469A; W57.XXXA Time Spent (min) 20
[2023-07-22 11:45] VITALS: BP 138/88; PULSE 71; TEMP 36.9; O2SAT 97; BMI 39.3
== END 2023-07-22 12:33 | disposition home or self-care (01) ==
PROVIDERS: PCP Nurse Practitioner Family; Visit Provider Physician Assistant
DX: S20.469A Insect bite (nonvenomous) of unspecified back wall of thorax, initial encounter (principal); W57.XXXA Bitten or stung by nonvenomous insect and other nonvenomous arthropods, initial encounter
CPT/HCPCS: 99213

== ENCOUNTER 2023-07-22 12:07 | Outpatient (REF) | payer OTHER, SELFPAY ==
[2023-07-23 18:03] LABS: Lyme Abs Screen <0.90 index
[2023-07-24 23:04] LABS: A. Phagocytphilium DNA,RT-PCR NOT DETECTED (NOT DETECTED); Babesia Microti DNA, RT-PCR NOT DETECTED (NOT DETECTED); Borrelia Miyamotoi,DNA RT-PCR NOT DETECTED (NOT DETECTED); E.Chaffeensis DNA RT-PCR NOT DETECTED (NOT DETECTED); Lyme(Borrelia ssp)DNA RT-PCR NOT DETECTED (NOT DETECTED)
== END 2023-07-22 12:08 | disposition home or self-care (01) ==
LOC: HO.HMGCLDS 12:07
PROVIDERS: PCP Nurse Practitioner Family; Visit Provider Physician Assistant
DX: S20.469A Insect bite (nonvenomous) of unspecified back wall of thorax, initial encounter (principal); W57.XXXA Bitten or stung by nonvenomous insect and other nonvenomous arthropods, initial encounter
CPT/HCPCS: 36415; 86617; 86618; 87468; 87469; 87478; 87484; 87798

== ENCOUNTER 2023-10-01 12:12 | Outpatient (REF) | payer OTHER, SELFPAY ==
[2023-10-01 14:36] LABS: PSA,Total (Free>4and<10) 3.22 ng/mL (0.00-4.00)
== END 2023-10-01 12:13 | disposition home or self-care (01) ==
LOC: HO.HMGCLDS 12:12
PROVIDERS: PCP Nurse Practitioner Family; Visit Provider Urology
DX: Z12.5 Encounter for screening for malignant neoplasm of prostate (principal); N40.0 Benign prostatic hyperplasia without lower urinary tract symptoms
CPT/HCPCS: 36415; 84153

== ENCOUNTER 2023-10-07 15:26 | Outpatient (AMB) | payer OTHER, SELFPAY ==
--- NOTE | 2023-10-07 15:31 | A.OFFVIS_ITS ---
Intake Visit Reasons: 4m/PSA Intake Note: Patient presents today for a PSA Results: Meds: Tadalafil Allergies to Antibiotic: No Known Allergies Blood Thinner: None Architectural Practice Manager Required: No Accompanied by: Self / Same As Patient Allergies prednisone [PREDNISONE] Allergy (Severe, Verified 10/07/23 15:34) GI BLEED, bleeding from lining of stomach prednisolone Allergy (Unknown, Verified 10/07/23 15:34) stomach upset cat, dogs Allergy (Unknown, Uncoded 10/07/23 15:34) Itching HPI Comments Details: 10/07/2023--Emmanuel is a 58-year-old male who is followed for BPH and erectile dysfunction. He was last seen 06/07/2023 at which time he had office cystoscopy due to abnormal bladder ultrasound findings, cystoscopy no suspicious lesions, mild trabeculations. He is here in follow-up he is prescribed daily Cialis 5 mg. He states the Cialis is working well and he does not need the on demand Viagra. He had PSA done, 10/01/2023--3.22 ng/mL.I have discussed PSA is a blood test, prostate specific antigen and is an enzyme secreted by the prostate gland. Elevated PSA may be due to multiple conditions including prostate inflammatory condition, enlarged prostate or prostate cancer. Will continue to monitor PSA. PSA in 6 months. Review of chart: 06/07/23--Emmanuel is a 57-year-old male who presents today to the office for Office Cysto. LV--05/03/23?at that time reviewed renal US which had question bladder lesion. Emmanuel was initially evaluated on 01/18/23 for complaints of incomplete bladder emptying and ED. AUA symptom score: 14, and IIEF-5 questionnaire was 15. PSA results from 06/18/2022 revealed 2.64 ng/mL. He was prescribed Cialis 5 mg daily and states the medication is working well. Office cystoscopy: Evaluation today?06/07/23-- Office cystoscopy- mild trabeculations, bilobar enlargement of prostate, no suspicious lesions noted Review of Chart: 04/08/23--renal US results- Prostate is irregular and heterogeneous with volume of 43.9 mL. There is mass effect on the inferior aspect of the urinary bladder. [facility] Medical History Screening PSA (prostate specific antigen) Hypertension Primary osteoarthritis of right knee Primary osteoarthritis of left knee JOHN (obstructive sleep apnea) History of torn meniscus of left knee GERD (gastroesophageal reflux disease) Surgical History Hx of cystoscopy Family History Father No problems noted. 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 Cognitive needs: No Hearing needs: No Vision needs: No Review of Systems Const All systems reviewed & are unremarkable except as noted in HPI and below Reports no additional complaints Eyes Reports no additional complaints ENT Reports no additional complaints Card Reports no additional complaints Resp Reports no additional complaints GI Reports no additional complaints Reports as per HPI Musc Reports no additional complaints Skin/Breast Reports system reviewed and no additional complaints, except as documented Neuro Reports no additional complaints Psych Reports no additional complaints Endo Reports no additional complaints Paulie/Lymph Reports no additional complaints Aller/Immun Reports no additional complaints Results AMB Urinalysis, Automated UA Leukoctes 0 Freda/uL Last Edit by BARRINGTON Neely on 10/07/23 15:51 UA Nitrite Negative Last Edit by BARRINGTON Neely on 10/07/23 15:51 UA Urobilinogen 0.2 mg/dL Last Edit by BARRINGTON Neely on 10/07/23 15:5 1 UA Protein 15 mg/dL Last Edit by BARRINGTON Neely on 10/07/23 15:51 UA pH 6.0 Last Edit by BARRINGTON Neely on 10/07/23 15:51 UA Blood 0 Poli/uL Last Edit by BARRINGTON Neely on 10/07/23 15:51 UA Specific [place] 1.025 Last Edit by BARRINGTON Neely on 10/07/23 15: 51 UA Ketone Negative Last Edit by BARRINGTON Neely on 10/07/23 15:51 UA Bilirubin 0 mg/dL Last Edit by BARRINGTON Neely on 10/07/23 15:51 UA Glucose 0 mg/dL Last Edit by BARRINGTON Neely on 10/07/23 15:51 Results Reviewed Results Reviewed: Laboratory Last Values Urine pH (Auto) 6.0 10/07/23 15:49 Specific [place] (Auto) 1.025 10/07/23 15:49 Urine Protein (Auto) 15 mg/dL 10/07/23 15:49 Glucose (UA)(Auto) 0 mg/dL 10/07/23 15:49 Urine Ketones (Auto) Negative 10/07/23 15:49 Urine Blood (Auto) 0 Poli/uL 10/07/23 15:49 Urine Nitrite (Auto) Negative 10/07/23 15:49 Urine Bilirubin (Auto) 0 mg/dL 10/07/23 15:49 Urine Urobilinogen (Auto) 0.2 mg/dL 10/07/23 15:49 Leukocyte Esterase (Auto) 0 Freda/uL 10/07/23 15:49 Assessment & Plan Assessment & Plan (1) Slowing of urinary stream: Code(s): R39.198 - Other difficulties with micturition Category: Medical (2) Abnormal finding on ultrasound: Code(s): R93.89 - Abnormal findings on diagnostic imaging of other specified body structures Category: Medical (3) Enlarged prostate: Code(s): N40.0 - Benign prostatic hyperplasia without lower urinary tract symptoms Category: Medical (4) Elevated PSA: Code(s): R97.20 - Elevated prostate specific antigen [PSA] Category: Medical Plan Continue Cialis 5 mg daily. PSA in 6 months. Orders: Orders AMB Urinalysis Automated 10/07/23 Z13.9 - Encounter for screening, unspecified PSA,Total (Free>4and<10) 6 Months R97.20 - Elevated prostate specific antigen [PSA] Medications: Refilled tadalafil 5 mg PO DAILY 30 tabs 5RF Patient Instructions: The patient had an opportunity to ask questions regarding treatment plan. The patient expressed understanding and agreement with the above treatment plan. The patient is aware they should contact our office by phone for worsening of their current condition or the appearance of new symptoms. Compliance is encouraged with any medications and followup testing that is ordered. It is a privilege to be allowed the opportunity to participate in the urologic care of your patient. If you have any questions or concerns regarding treatment for the above conditions please do not hesitate to contact me. The office telephone contact is [phone]. This note is constructed in part using voice recognition software. While every effort has been made to ensure accuracy towerman errors may have been included. Yours sincerely, Pierre Cartwright MD Coding Level of Care Code Est Pt Level 4 (84309) Diagnoses Slowing of urinary stream R39.198 Abnormal finding on ultrasound R93.89 Enlarged prostate N40.0 Elevated PSA R97.20
== END 2023-10-07 16:15 | disposition home or self-care (01) ==
PROVIDERS: PCP Nurse Practitioner Family; Visit Provider Urology
DX: R39.198 Other difficulties with micturition (principal); R93.89 Abnormal findings on diagnostic imaging of other specified body structures; N40.0 Benign prostatic hyperplasia without lower urinary tract symptoms; R97.20 Elevated prostate specific antigen [PSA]
CPT/HCPCS: 99214

== ENCOUNTER → 2023-10-07 15:26 | Outpatient (BNVA) | payer OTHER, SELFPAY | PROVIDERS: PCP Nurse Practitioner Family; Visit Provider Urology | DX: N40.1 Benign prostatic hyperplasia with lower urinary tract symptoms (principal); R39.198 Other difficulties with micturition; R93.89 Abnormal findings on diagnostic imaging of other specified body structures; R97.20 Elevated prostate specific antigen [PSA]; N52.9 Male erectile dysfunction, unspecified; Z79.899 Other long term (current) drug therapy | CPT/HCPCS: 81003 ==

== ENCOUNTER 2024-02-18 16:02 | Outpatient (AMB) | payer OTHER, SELFPAY ==
[2024-02-18 16:05] VITALS: BP 130/80; PULSE 71; O2SAT 98; BMI 39.6
--- NOTE | 2024-02-18 16:05 | MHC.PC.OV ---
Vital Signs 02/18/24 16:05 Height 5 ft 9 in Weight 268 lb BMI 39.6 BP 130/80 Blood Pressure Location Rt brachial Position Sitting Pulse 71 Pulse Source Pulse Oximeter Pulse Oximetry (%) 98 Oxygen Delivery Method Room Air Intake Visit Reasons: Annual PE Intake Note: pt is here for annual exam Dials Supervisor Required: No Accompanied by: Self / Same As Patient Allergies prednisone [PREDNISONE] Allergy (Severe, Verified 02/18/24 17:19) GI BLEED, bleeding from lining of stomach prednisolone Allergy (Unknown, Verified 02/18/24 17:19) stomach upset cat, dogs Allergy (Unknown, Uncoded 02/18/24 17:19) Itching Medication List - Last Reconciled 02/18/24 by NIKI Julien lisinopril 20 mg PO DAILY omeprazole 40 mg (2 x 20 mg) PO DAILY sertraline 200 mg (2 x 100 mg) PO DAILY tadalafil 5 mg PO DAILY Tobacco use date assessed: 02/18/24 Dental Screening Dental Screen Date: 02/18/24 Did you have a dental visit in the last 12 months?: Yes Did you have a dental problem in the last 6 months where you did not have access to dental care?: No Was dental information given to patient?: Patient has dentist HPI Annual PE HPI Details pt is here for a PE. Referred for colon screen, pt reports i'm overdue . Pt sees a urologist for PSAs. [facility] Medical History Screening PSA (prostate specific antigen) Hypertension Primary osteoarthritis of right knee Primary osteoarthritis of left knee JOHN (obstructive sleep apnea) History of torn meniscus of left knee GERD (gastroesophageal reflux disease) Surgical History Hx of cystoscopy Family History Father No problems noted. 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 1. Little interest or pleasure in doing things: not at all 2. Feeling down, depressed, or hopeless: not at all 3. Trouble falling or staying asleep, or sleeping too much: not at all 4. Feeling tired or having little energy: not at all 5. Poor appetite or overeating: not at all 6. Feeling bad about yourself - or that you are a failure or have let yourself or your family down: not at all 7. Trouble concentrating on things, such as reading the newspaper or watching television: not at all 8. Moving or speaking so slowly that other people could have noticed. Or the opposite - being so fidgety or restless that you have been moving around a lot more than usual: not at all 9. Thoughts that you would be better off or of hurting yourself in some way: not at all Total score: 0 Depression Screening Interpretation: Negative Depression Screening Done: Yes 42410 - PHQ-9 Billing: Yes Source: Developed by Drs. Wil Arevalo, Larisa Vick, jN [place] and colleagues, with an educational jermain from [employer]. Thrive Questionnaire Date Thrive assessed: 02/18/24 I am a: Patient What is your living situation today?: I have a steady place to live Within the past 12 months, did the food you bought not last and you didn't have the money to get more?: Never true Within the past 12 months, did you worry whether your food would run out before you got money to buy more?: Never true Do you have trouble paying for medicines?: No Do you have trouble getting transportation to medical appointments?: No Do you have trouble paying your heating and electricity bill?: No Do you have trouble taking care of your child, family member or friend?: No Do you have trouble with day-to-day activities such as bathing, preparing meals, shopping, managing finances, etc.?: No Are you currently unemployed and looking for a job?: No Are you interested in more education?: No Please select the resources that you would like help with: None Currently or been in a relationship where the following occur: No concerns reported THRIVE Score: 0 AUDIT C Alcohol Use Questionnaire (AUDIT-C) 1. How often do you have a drink containing alcohol?: 2-4 times a month 2. How many drinks containing alcohol do you have on a typical day when you are drinking?: 1 or 2 3. How often do you have six or more drinks on one occasion?: Never Total Score: 2 Score Reviewed/Action Taken: Yes REJI-7 AMB Questionnaire REJI-7 Date REJI - 7 assessed: 02/18/24 Feeling nervous, anxious, or on edge: 0 = Not at all Not being able to stop or control worryin = Not at all Worrying too much about different things: 0 = Not at all Trouble relaxin = Not at all Being so restless that it is hard to sit still: 0 = Not at all Becoming easily annoyed or irritable: 0 = Not at all Feeling afraid as if something awful might happen: 0 = Not at all Total REJI-7 score (0-4 normal; 5-9 mild; 10-14 moderate; 15-21 severe): 0 Source: Developed by Drs. Wil Arevalo, Larisa Vick, Nj [place] and colleagues, with an educational jermain from [employer]. REJI-7 Assessment Billing REJI-7 Assessment Tool: REJI-7 Assessment 76355 Review of Systems Const Denies chills and Denies fever(s) Eyes Denies blurry vision ENT Denies vertigo, Denies dizziness and Denies sore throat Card Denies chest pain at rest, Denies chest pain with activity, Denies diaphoresis, Denies dyspnea and Denies dyspnea on exertion Resp Denies cough, Denies dyspnea, Denies dyspnea on exertion and Denies wheezing GI Denies abdominal pain, Denies melena, Denies hematochezia, Denies constipation, Denies diarrhea and Denies loose stools Denies hematuria Musc Denies numbness and Denies tingling Skin/Breast Denies lesions Neuro Denies vertigo, Denies dizziness, Denies numbness and Denies tingling Psych Denies anxiety, Denies depression, Denies homicidal ideation, Denies suicidal ideation and Denies other (substance abuse) Aller/Immun Denies wheezing Physical exam (Primary Care) Vital Signs: Last Vital Signs Pulse 71 02/18/24 16:05 BP 130/80 02/18/24 16:05 Pulse Ox 98 02/18/24 16:05 Oxygen Delivery Method Room Air 02/18/24 16:05 BMI result Body Mass Index 39.6 Tobacco/Smoking Status: Tobacco use Status Tobacco use date assessed 02/18/24 02/18/24 16:06 Patient Tobacco Use Status Never used Tobacco 02/18/24 16:06 e-Cigarette/Vaping Use Never Used 02/18/24 16:06 PHQ-9: PHQ-9 Score PHQ-9: Total score 0 02/18/24 16:15 Depression Screening Interpretation: Negative Thrive Assessment: Date of Thrive Assessment Date Thrive assessed 02/18/24 02/18/24 16:06 Currently or been in a relationship where the following occur: No concerns reported Const General: cooperative Nutritional Appearance: well nourished Orientation/consciousness: patient oriented x3 HENMT Head: Yes normal to inspection, Yes normocephalic and Yes atraumatic Ears: TM normal on the right and TM normal on the left Eyes General: appearance normal, both eyes and all related structures Alignment and Position: alignment normal and position normal Neck Neck: Yes normal visual inspection, Yes no lymphadenopathy and Yes supple Resp Effort & Inspection: normal respiratory effort Auscultation: clear to auscultation bilaterally Cardio Rate: regular rate Rhythm: regular rhythm Heart sounds: S1 normal heart sound present, S2 normal heart sound present and no murmurs GI Palpation (GI): Soft to palpation and nontender Auscultation: normal bowel sounds Male General Exam: Yes normal external exam Penis: normal penis Scrotum: scrotum normal, testes descended bilaterally and no inguinal hernias Testes: no testicular mass Skin Other: BLE varicose veins Rashes: no rashes Neuro General: patient oriented x3, moves all extremities, no focal motor deficits and deep tendon reflexes 2+ bilaterally Romberg Test: Negative Extrem Right lower extremity: no edema Left lower extremity: no edema Psych Affect: normal affect Attitude: cooperative Thought process: Normal thought process present Coding Level of Care Code Est Pt Prev Care 40-64y(57629) Diagnoses Screening for colon cancer Z12.11 Physical exam Z00.00 Additional Codes REJI-7 Assessment Billing - REJI-7 Assessment Tool: REJI-7 Assessment 35637 ([id number]) Assessment & Plan Assessment & Plan (1) Screening for colon cancer: Code(s): Z12.11 - Encounter for screening for malignant neoplasm of colon Category: Medical Plan: referred (2) Physical exam: Code(s): Z00.00 - Encounter for general adult medical examination without abnormal findings Category: Medical Plan: labs ordered Orders: Orders Comprehensive [place]. Panel Fast Today Z00.00 - Encounter for general adult medical examination without abnormal findings TSH reflex Free T4 Today Z00.00 - Encounter for general adult medical examination without abnormal findings UA CC w/rflx Micro + Cult Today Z00.00 - Encounter for general adult medical examination without abnormal findings Complete Blood Count Auto Diff Today Z00.00 - Encounter for general adult medical examination without abnormal findings Lipid Panel Today Z00.00 - Encounter for general adult medical examination without abnormal findings Referrals Gastroenterology Referral Z12.11 - Encounter for screening for malignant neoplasm of colon
== END 2024-02-18 16:58 | disposition home or self-care (01) ==
PROVIDERS: PCP Nurse Practitioner Family; Visit Provider Nurse Practitioner Family
DX: Z12.11 Encounter for screening for malignant neoplasm of colon (principal); Z00.00 Encounter for general adult medical examination without abnormal findings

== ENCOUNTER → 2024-02-18 16:02 | Outpatient (BNVA) | payer OTHER, SELFPAY | PROVIDERS: PCP Nurse Practitioner Family; Visit Provider Nurse Practitioner Family | DX: Z00.00 Encounter for general adult medical examination without abnormal findings (principal) | CPT/HCPCS: 96127 ==

== ENCOUNTER 2024-03-03 08:37 | Outpatient (REF) | payer OTHER, SELFPAY ==
--- NOTE | ~2024-03-03 | US_ITS ---
EXAMINATION: US THYROID CLINICAL INFORMATION: Nontoxic single thyroid nodule. COMPARISON: None available. TECHNIQUE: Linear transducer grayscale and color Doppler examination with attention to the region of the thyroid. FINDINGS: SIZE: Measurements of the thyroid lobes and nodules are given in sagittal, anteroposterior and transverse dimensions respectively. Right Thyroid Lobe: 5.8 x 2.1 x 2.4 cm, volume 14.8 mL. Parenchyma: The gland echotexture is mildly heterogeneous. Thyroid vascularity is normal. Left Thyroid Lobe: 5.7 x 1.9 x 2.1 cm, volume 12.0 mL. Parenchyma: The gland echotexture is mildly heterogeneous. Thyroid vascularity is normal. Isthmus: 0.34 cm in maximum AP dimension. No suspicious thyroid nodule is seen. NODES: No lymphadenopathy is seen in the tissue surrounding the thyroid gland. US/US thyroid IMPRESSION: No suspicious thyroid nodule identified. Enlarged, mildly heterogeneous thyroid gland. ACR TI-RADS RECOMMENDATION REFERENCE: Ultrasound-guided fine-needle aspiration, followup ultrasound, no further follow up. * TR1 (0 point) and TR2 (2 points): No FNA or follow up. * TR3 (3 points): FNA if more than or equal to 2.5 cm in maximum dimension, followup ultrasound in 1, 3 and 5 years if 1.5 to 2.4 cm in maximum dimension. * TR4 (4-6 points): FNA if more than or equal to 1.5 cm in maximum dimension, followup ultrasound in 1, 2, 3 and 5 years if 1 to 1.4 cm in maximum dimension. * TR5 (more than or equal to 7 points): FNA if more than or equal to 1 cm in maximum dimension, followup ultrasound every year for 5 years if 0.5 to 0.9 cm in maximum dimension. * TR3, TR4 or TR5 nodules that are below the size threshold for followup receive no follow up. Electronically signed by: Ekaterina Caldwell MD 04/30/2024 08:17 AM [facility]
== END 2024-03-03 08:38 | disposition home or self-care (01) ==
LOC: HO.HMGCX 08:37
PROVIDERS: PCP Nurse Practitioner Family; Visit Provider Nurse Practitioner Family
DX: E04.1 Nontoxic single thyroid nodule (principal)
CPT/HCPCS: 76536

== ENCOUNTER 2024-03-30 08:55 | Outpatient (REF) | payer OTHER, SELFPAY ==
[2024-03-30 10:04] LABS: MANUAL DIFF FLAG NO
[2024-03-30 10:10] LABS: Basophils Percent Auto 0.9 % (0-2); Eosinophils Absolute Auto 0.1 X10*3/uL (0.0-0.4); Eosinophils Percent Auto 2.4 % (0-4); Hematocrit 41.1 % (42.0-52.0); Hemoglobin 13.9 g/dl (14.0-18.0); Imm Gran Abs Auto 0.01 X10*3/uL (0.00-0.03); Imm Gran Pct Auto 0.2 % (0.0-0.4); Lymphocytes Absolute Auto 1.1 X10*3/uL (1.2-4.9); Lymphocytes Percent Auto 25.5 % (20-40); Mean Corpuscular HGB Conc 33.8 g/dl (31.0-36.0); Mean Corpuscular Volume 97.6 fL (80.0-98.0); Mean Platelet Volume 9.2 fL (9.4-12.4); Monocytes Absolute Auto 0.4 X10*3/uL (0.1-1.2); Monocytes Percent Auto 9.7 % (2-11); Neutrophils Absolute Auto 2.6 x10*3/uL (2.0-8.3); Neutrophils Percent Auto 61.3 % (45-73); Platelet Count 142 X10*3/uL (160-400); Red Blood Count 4.21 X10*6/uL (4.60-5.80); Red Cell Distribution Width 11.9 % (11.0-16.0); White Blood Count 4.2 X10*3/uL (4.8-10.8)
[2024-03-30 11:01] LABS: Alanine Aminotransferase 31 U/L (0-40); Albumin Level 4.1 g/dL (3.5-5.0); Alkaline Phosphatase 41 U/L (39-117); Anion Gap 11 (12-20); Aspartate Amino Transferase 33 U/L (5-37); Bilirubin Total 0.9 mg/dL (0.0-1.0); Blood Urea Nitrogen 14 mg/dL (9-16); Calcium 8.9 mg/dL (8.4-10.2); Carbon Dioxide 26 mmol/L (22-29); Chloride 105 mmol/L (96-108); Cholesterol 184 mg/dL (<200); Estimated Glomerular Filt Rate > 60; Glucose Fasting 95 mg/dL (60-99); HDL Cholesterol 78 mg/dL (>40); LDL Cholesterol Calculated 89 mg/dL (<100); Potassium 3.9 mmol/L (3.3-5.1); Sodium 138 mmol/L (135-145); Triglycerides 87 mg/dL (<150)
[2024-03-30 11:05] LABS: TSH reflex Free T4 1.47 uIU/mL (0.32-4.0)
[2024-03-30 11:09] LABS: PSA,Total (Free>4and<10) 2.86 ng/mL (0.00-4.00)
[2024-03-30 13:17] LABS: Appearance Urine Turbid; Color Urine Yellow; Glucose Urine UA Negative (Negative); Leukocyte Esterase Urine Negative (Negative); Nitrite Urine Negative (Negative); PH 5.5 (5.0-9.0); Urine Blood Negative (Negative); Urine Ketones Negative (Negative); Urine Protein Negative (Neg-Trace)
== END 2024-03-30 08:56 | disposition home or self-care (01) ==
LOC: HO.HMGCLDS 08:55
PROVIDERS: PCP Nurse Practitioner Family; Referring Provider Urology; Visit Provider Nurse Practitioner Family
DX: Z00.00 Encounter for general adult medical examination without abnormal findings (principal); R97.20 Elevated prostate specific antigen [PSA]; Z12.5 Encounter for screening for malignant neoplasm of prostate
CPT/HCPCS: 36415; 80053; 80061; 81003; 84153; 84443; 85025

== ENCOUNTER 2024-05-05 13:35 | Outpatient (REF) | payer OTHER, SELFPAY ==
[2024-05-05 16:14] LABS: MANUAL DIFF FLAG NO
[2024-05-05 16:28] LABS: Basophils Percent Auto 0.7 % (0-2); Eosinophils Absolute Auto 0.1 X10*3/uL (0.0-0.4); Hematocrit 40.3 % (42.0-52.0); Hemoglobin 13.9 g/dl (14.0-18.0); Imm Gran Abs Auto 0.02 X10*3/uL (0.00-0.03); Imm Gran Pct Auto 0.4 % (0.0-0.4); Immature Retic Fraction 7.9 % (2.3-13.4); Lymphocytes Absolute Auto 1.2 X10*3/uL (1.2-4.9); Lymphocytes Percent Auto 27.3 % (20-40); Mean Corpuscular HGB Conc 34.5 g/dl (31.0-36.0); Mean Corpuscular Volume 95.7 fL (80.0-98.0); Mean Platelet Volume 9.3 fL (9.4-12.4); Monocytes Absolute Auto 0.4 X10*3/uL (0.1-1.2); Monocytes Percent Auto 9.6 % (2-11); Neutrophils Absolute Auto 2.7 x10*3/uL (2.0-8.3); Platelet Count 140 X10*3/uL (160-400); Red Blood Count 4.21 X10*6/uL (4.60-5.80); Red Cell Distribution Width 11.8 % (11.0-16.0); Retic HGB Equivalent 37.3 pg (30.0-35.0); Reticulocyte Percent 2.1 % (0.5-1.8); Reticulocytes Absolute 0.088 X10*6/uL (0.026-0.095); White Blood Count 4.5 X10*3/uL (4.8-10.8)
[2024-05-05 17:37] LABS: Folate 7.2 ng/mL (> or = 4.0); Vitamin B12 287 pg/mL (200-900)
[2024-05-05 17:46] LABS: Ferritin 105 ng/mL (20-250); Iron 115 mcg/dL (45-160); Percent Iron Saturation 34 % (15-50); Total Iron Binding Capacity 340 mcg/dL (228-428); Unsaturated Iron Binding 225 ug/dL
[2024-05-05 18:30] LABS: Lactate Dehydrogenase 180 U/L (118-273)
== END 2024-05-05 13:36 | disposition home or self-care (01) ==
LOC: HO.HMGCLDS 13:35
PROVIDERS: PCP Nurse Practitioner Family; Visit Provider Nurse Practitioner Family
DX: D61.818 Other pancytopenia (principal)
CPT/HCPCS: 36415; 82607; 82728; 82746; 83540; 83615; 85025; 85045

== ENCOUNTER → 2024-06-08 14:17 | Outpatient (BNV) | payer OTHER, SELFPAY | PROVIDERS: PCP Nurse Practitioner Family; Referring Provider Nurse Practitioner Family; Visit Provider Internal Medicine | DX: D61.818 Other pancytopenia (principal) | CPT/HCPCS: 99204 ==

== ENCOUNTER 2024-06-12 14:07 | Outpatient (REF) | payer OTHER, SELFPAY ==
--- OUTSIDE RECORDS SUMMARY | 2024-06-12 14:29 | XMS_ITS | Clinical Summary ---
Author Organization [facility] ity Address [address] [place] [address] Care Team Providers Care Associate Professor Of Media Arts Name Role Phone Felix Kraus MD Primary Care Provider [phone] Social History Tobacco Use Types Packs/Day Years Used Date Smoking Tobacco: Never Assessed Sex and Gender Information Value Date Recorded Sex Assigned at Not on file Gender Identity Not on file Sexual Orientation Not on file Plan of Treatment Health Maintenance Due Date Last Done Comments DTaP,Tdap,and Td Vaccines (1 - Tdap) 1985 Hepatitis B Vaccines (1 of 3 - 19+ 3-dose series) 1985 Zoster Vaccines (1 of 2) 2016 COVID-19 Vaccine (2023-2 5 season) 2024 Influenza Vaccine (#1) 2024 HIB Vaccines Aged Out No longer eligi ble based on patient's age to complete this topic HPV Vaccines Aged Out No longer eligi ble based on patient's age to complete this topic Hepatitis A Vaccines Aged Out No long er eligible based on patient's age to complete this topic IPV Vaccines Aged Out No longer eligi ble based on patient's age to complete this topic MMR Vaccines Aged Out No longer eligi ble based on patient's age to complete this topic Meningococcal ACWY Vaccine Aged Out N o longer eligible based on patient's age to complete this topic Pneumococcal Vaccine: Pediat rics (0 to 5 Years) and At-Risk Patients (6 to 64 Years) Aged Out No longer eligible b ased on patient's age to complete this topic RSV Immunization Patients Un sofia 20 months Aged Out No longer eligible b ased on patient's age to complete this topic Varicella Vaccines Aged Out No longer eligible based on patient's age to complete this topic Care Teams Associate Professor Of Media Arts Relationship Specialty Start Date End Date Felix Kraus MD [address] [place] [address] Dr [address] TATA Mckenna PCP - General 10/08/16
--- OUTSIDE RECORDS SUMMARY | 2024-06-12 14:29 | XMS_ITS | Patient Health Record ---
Author Organization [facility] Address [address] [place] [phone] Care Team Providers Care Merchandise Worker Name Role Phone MARIAH MERAZ Primary Care Provider Wil Chen Unavailable [phone] ALLERGIES Allergen (clinical drug ingredient) Drug/Non Drug Allergy documented on EMR Reaction Allergy Type Onset Date Status prednisone PredniSONE Intensol vomiting/abdomin al bleed Drug Allergy Active dogs, cats, certain plants (uncoded) Unknown Allergy Active REASON FOR REFERRAL No Information MEDICATIONS Medication SIG (Take, Route, Fr equency, Duration) Notes Start Date End Date Status Zoloft 100 mg 2 tab Oral Activ e Lisinopril 5 MG 1 tablet Orally Once a day Active Vitamin B-12 100 MCG as directed Orally 06/12/2024 Active Cialis 5 MG 1 tablet as needed O rally Once a day for 30 day(s) 06/12/2024 Active Prilosec 20 MG 1 capsule Orally Once a day Active IMMUNIZATIONS Vaccine Route Administration Date Status Comme nts Influenza Unknown 06/12/2024 Refused SOCIAL HISTORY Tobacco Use: Social History Observation Description Date Details (start date - stop date) Never Smoker NA - NA Sex Assigned At : Social History Observation Description Sex Assigned At Unknown Tobacco Use/Smoking Question Answer Notes Patient is a nonsmoker Alcohol Screen Question Answer Notes Did you have a drink contain ing alcohol in the past year? Yes How often did you have a dri nk containing alcohol in the past year? 2 to 3 times a week (3 points) How many drinks did you have on a typical day when you were drinking in the past year? 1 or 2 drinks (0 point) How often did you have 6 or more drinks on one occasion in the past year? Never (0 point) Points 3 Interpretation Negative PROBLEMS Problem Type ICD Code Onset Dates Problem Status W/U Status Risk SNOMED Code Notes Problem Gastroesophageal reflux disease, esophagitis presence not specified (K21.9) Active confirmed 575063240 Problem Encounter for screening for malignant neoplasm of colon (Z12.11) Active confirmed 888856499 Problem Encounter for screening for malignant neoplasm of rectum (Z12.12) Active confirmed Screening for malignant neoplasm of rectum (130731263) Problem Preprocedural examination (Z01.818) Active confirmed 22318485 Problem Family history of colon cancer (Z80.0) Active confirmed 342625406 Problem Family history of adenomatous and serrated polyps (Z83.710) Active confirmed Problem Personal history of colonic polyps (Z86.010) Active confirmed History of polyp of colon (situation) (144960299) Problem Diarrhea (R19.7) Active confirmed Diarr hea (10914850) VITAL SIGNS Temperature 98.9 degrees Fahrenheit 06/12/2024 Blood pressure diastolic 00 mm Hg 06/12/2024 Height 69.5 in 06/12/2024 Blood pressure systolic 000 mm Hg 06/12/2024 Weight 268 lb 4 oz lbs 06/12/2024 BMI 39.04 kg/m2 06/12/2024 Encounters Encounter Location Date Provider Diagnosis [facility] [address] [place] [phone] 07/26/2023 Wil Dumont [facility] [address] [place] [phone] 06/12/2024 Wil Dumont Gastroesophageal ref lux disease, esophagitis presence not specified K21.9 ; Encounter for screening for malignant neoplasm of colon Z12.11 ; Family history of colon cancer Z80.0 ; Personal history of colonic polyps Z86.010 and Diarrhea R19.7 [facility] [address] [place] [phone] 07/18/2023 iWl Dumont ASSESSMENTS Encounter Date Diagnosis Assessment Notes Treatment Notes Treatment Clinical Notes 06/12/2024 Gastroesophageal ref lux disease, esophagitis presence not specified (ICD-10 - K21.9) 06/12/2024 Encounter for screen ing for malignant neoplasm of colon (ICD-10 - Z12.11) 06/12/2024 Family history of co lisseth cancer (ICD-10 - Z80.0) 06/12/2024 Personal history of colonic polyps (ICD-10 - Z86.010) 06/12/2024 Diarrhea (ICD-10 - R19.7) PLAN OF TREATMENT Pending Test Test Name Order Date CELIAC PANEL #10 06/12/2024 Future Test Test Name Order Date UPPER GI ENDOSCOPY 05/19/2015 COLONOSCOPY 05/19/2015 UPPER GI ENDOSCOPY 06/12/2024 COLONOSCOPY 06/12/2024 Next Appt Details Provider Name:Wil Dumont , 10/05/2024 11:30:00 AM, [address] [place] [address] , [place], [place], [phone], Insurance Providers Payer Name Payer Address Payer Phone Subscriber Number Group Number Insured Name Patient Relationship to Insured Coverage Start Date Coverage End Date HE[employer] PLANS [facility] [address] [place] [address] [id number] LAVERN MYERS Self - patient is the insured MEDICAL (GENERAL) HISTORY Medical History History ICD Code Hypertension Denies ID,DM,CVA,Lung disease,renal dise ase GERD--told of a HH on an UGI OCD/Depression Sleep apnea--nasal CPAP EGD 2015-no esophagitis nor Brito's, benign gastric polyps, moderate-sized HH Colonoscopy 2015 with two tubular adenom as removed Surgical History Surgery Date(Month/Year) Knee--torn meniscus x 2
--- OUTSIDE RECORDS SUMMARY | 2024-06-12 14:29 | XMS_ITS ---
Author Organization [facility] Address [address] [place] [address] Care Team Providers Care Betting Agency Counter Clerk Name Role Phone MARIAH MERAZ Primary Care Provider Wil Chen [phone] REASON FOR VISIT Patient presents today for a colon screening Encounters Encounter Location Date Provider Diagnosis [facility] [address] [place] [address] 07/26/2023 Wil Dumont PLAN OF TREATMENT Next Appt Details Provider Name:Wil Dumont , 10/05/2024 11:30:00 AM, [address] [place] [address] , [place], [place], [phone],
--- OUTSIDE RECORDS SUMMARY | 2024-06-12 14:29 | XMS_ITS ---
Author Organization [facility] Address [address] [place] [address] Care Team Providers Care Dough Molder Name Role Phone MARIAH MERAZ Primary Care Provider Wil Chen Unavailable [phone] ALLERGIES Allergen (clinical drug ingredient) Drug/Non Drug Allergy documented on EMR Reaction Allergy Type Onset Date Status prednisone PredniSONE Intensol vomiting/abdomin al bleed Drug Allergy Active dogs, cats, certain plants (uncoded) Unknown Allergy Active REASON FOR VISIT Patient presents today for a colon screening MEDICATIONS Medication SIG (Take, Route, Fr equency, Duration) Notes Start Date End Date Status Zoloft 100 mg 2 tab Oral Activ e Vitamin B-12 100 MCG as directed Orally 06/12/2024 Active Cialis 5 MG 1 tablet as needed O rally Once a day for 30 day(s) 06/12/2024 Active Prilosec 20 MG 1 capsule Orally Once a day Active Lisinopril 5 MG 1 tablet Orally Once a day Active IMMUNIZATIONS Vaccine [...] W/U Status Risk SNOMED Code Notes Problem Family history of adenomatous and serrated polyps (Z83.710) Active confirmed Problem Personal history of colonic polyps (Z86.010) Active confirmed History of polyp of colon (situation) (834214849) Problem Diarrhea (R19.7) Active confirmed Diarr hea (01775932) VITAL SIGNS BMI 39.04 kg/m2 06/12/2024 Blood pressure systolic 000 mm Hg 06/12/19 25 Blood pressure diastolic 00 mm Hg 025 Height 69.5 in 06/12/2024 Temperature 98.9 degrees Fahrenheit 06/12/19 25 Weight 268 lb 4 oz lbs 06/12/2024 Encounters Encounter Location Date Provider Diagnosis [facility] [address] [place] [address] 06/12/2024 Wil Dumont Gastroesophageal ref lux disease, esophagitis presence not specified K21.9 ; Encounter for screening for malignant neoplasm of colon Z12.11 ; Family history of colon cancer Z80.0 ; Personal history of colonic polyps Z86.010 and Diarrhea R19.7 ASSESSMENTS Encounter Date Diagnosis Assessment Notes Treatment [...] Test Name Order Date UPPER GI ENDOSCOPY 06/12/2024 COLONOSCOPY 06/12/2024 Next Appt Details Provider Name:Wil [place] Dumont , 10/05/2024 11:30:00 AM, [address] [place] [address] , [place], [place], [phone],
--- OUTSIDE RECORDS SUMMARY | 2024-06-12 14:29 | XMS_ITS ---
Author Organization [facility] Address [address] [place] [address] Care Team Providers Care Safety Specialist Name Role Phone MARIAH MERAZ Primary Care Provider Wil Chen [phone] REASON FOR VISIT no insurance Encounters Encounter Location Date Provider Diagnosis [facility] [address] [place] [phone] 07/18/2023 Wil Dumont PLAN OF TREATMENT Next Appt Details Provider Name:Wil Dumont , 10/05/2024 11:30:00 AM, [address] [place] [address] , [place], [place], [phone],
--- OUTSIDE RECORDS SUMMARY | 2024-06-12 14:29 | XMS_ITS | Clinical Summary ---
Author Organization [facility] Address [address] [place] [address] Care Team Providers Care Ticker Maintainer Name Role Phone NayanaFelix Chris DE LA CRUZ Primary Care Provider [phone] Social History Tobacco Use Types Packs/Day Years Used Date Smoking Tobacco: Never Assessed Sex and Gender Information Value Date Recorded Sex Assigned at Male 05/01/2018 2:19 PM EST Gender Identity Not on file Sexual Orientation Not on file Plan of Treatment Health Maintenance Due Date Last Done Comments Hepatitis B Vaccines (1 of 3 - 3-dose series) 1966 Hepatitis C Screening 1966 COVID-19 Vaccine (#1) 03/18/1967 Depression Screening 1978 Preventative Health Evaluation 1984 DTap / Tdap / Td (1 - Tdap) 1985 Colon Cancer Screening (Colonoscopy) 09/16/2011 Shingrix-Zoster Vaccine (1 of 2) 2016 Influenza Vaccine (#1) 2024 Pneumococcal Vaccine Aged Out No long er eligible based on patient's age to complete this topic RSV Ped < 20 months Aged Out No longe r eligible based on patient's age to complete this topic Advance Directives For more information, please contact: [phone] Documents on File Type Date Recorded Patient Flea Market Seller Expl anation Advance Directive and Living Will 10/08/2016 11:12 AM Care Teams Ticker Maintainer Relationship Specialty Start Date End Date Felix Kraus DO [address] [place] [id number] PCP - General 10/08/16
[2024-06-15 07:47] LABS: Immunoglobulin A 261 mg/dL (47-310)
[2024-06-17 12:37] LABS: Gliadin Deamidated IgA Ab <1.0 U/mL; Gliadin Deamidated IgG Ab <1.0 U/mL; Transglutaminase Ab IgG <1.0 U/mL; Transglutaminase IgA <1.0 U/mL
[2024-06-17 23:18] LABS: Endomysial IgA Antibody Negative (Negative)
== END 2024-06-12 14:08 | disposition home or self-care (01) ==
LOC: HO.LAB 14:07
PROVIDERS: PCP Nurse Practitioner Family; Visit Provider Internal Medicine
DX: R19.7 Diarrhea, unspecified (principal)
CPT/HCPCS: 36415; 82784; 86231; 86258; 86364

== ENCOUNTER 2024-09-22 10:02 | Outpatient (REF) | payer OTHER, SELFPAY ==
--- NOTE | ~2024-09-22 | US_ITS ---
CLINICAL HISTORY: Pancytopenia, ? hepatosplenomegaly US abdomen complete Comparison: None Findings: 5.6 x 5.0 cm indeterminate cyst noted in left upper quadrant. Findings very likely benign, etiology and origin unknown. CT with contrast could be used if additional information needed. Gallbladder unremarkable, no stone formation or wall thickening. Common duct measures 2.7 mm. No sonographic Zuñiga sign. Liver is homogeneous and normal in size and echogenicity. Main portal vein patent with normal direction of flow. Pancreas is unremarkable. Aorta and IVC patent and normal in caliber. The right kidney is normal, 11.6 cm in length. No focal abnormality or hydronephrosis. The left kidney is normal, 12.0 cm in length. No focal abnormality or hydronephrosis. The spleen is normal, 13.8 cm in length. No focal abnormality. Impression: Indeterminate simple cyst left upper quadrant This is likely benign and may need no further workup Suggest CT if additional information is needed This document has been electronically signed by: Adolfo Lehman MD on 09/22/2024 21:36:57
--- OUTSIDE RECORDS SUMMARY | 2024-09-22 11:12 | XMS_ITS | Clinical Summary ---
Author Organization [facility] Address [address] [place] [address] Care Team Providers Care Pharmacy Assistant Name Role Phone NayanaFelix Chris DE LA CRUZ Primary Care Provider [phone] Social History Tobacco Use Types Packs/Day Years [...] Advance Directives For more information, please contact: [phone] Documents on File Type Date Recorded Patient Sponge Clipper Expl anation Advance Directive and Living Will 10/08/2016 11:12 AM Care Teams Pharmacy Assistant Relationship Specialty Start Date End Date Felix Kraus DO [address] [place] [phone] PCP - General 10/08/16
--- OUTSIDE RECORDS SUMMARY | 2024-09-22 11:12 | XMS_ITS ---
Author Organization [facility] Address [address] [place] [address] Care Team Providers Care Machine Operator Farmworker Name Role Phone MARIAH MERAZ Primary Care Provider Wil Chen [phone] REASON FOR VISIT no insurance Encounters Encounter Location Date Provider Diagnosis [facility] [address] [facility] [address] [place] [address] 07/18/2023 Wil Dumont Plan Of Treatment Next Appt Details Provider Name:Wil Dumont , 10/05/2024 11:30:00 AM, [address] [place] [address] , [place], [place], [phone], Progress Notes * LAVERN MYERS JrDOB:[birth year] (57 yo M)Acc No.[id number]:07/18/2023 Patient:?LAVERN MYERS :1965???Age:57 Y???Sex:Male Address:[address] [place] [address], [address] [place] [address] as of 05/29, [place] [address] * true * Date:? Generated for Melissai danni/Bao/eTransmitting on:?09/22/2024 11:12 AM EDT
--- OUTSIDE RECORDS SUMMARY | 2024-09-22 11:12 | XMS_ITS | Patient Health Record ---
Author Organization [facility] Address [address] [place] [address] Care Team Providers Care Biomedical Engineering Internship Name Role Phone MARIAH MERAZ Primary Care Provider Wil Chen Unavailable [phone] Allergies Allergen (clinical drug ingredient) Drug/Non Drug Allergy documented on EMR Reaction Allergy Type Onset Date Status prednisone PredniSONE Intensol vomiting/abdomin al bleed Drug Allergy Active dogs, cats, certain plants (uncoded) Unknown Allergy Active Results Component Value Reference Range Notes Immunoglobulin A Reviewed date:06/21/2024 03:46:34 PM Interpretation: Performing Lab:[address] [address] Notes/Report: Immunoglobulin A 261 47-310 mg/dL THIS TEST WAS PERFORMED AT: [facility] [address] [place] [phone] RYAN MOSS MD Transglutaminase Ab IgG Reviewed date:06/21/2024 03:46:44 PM Interpretation: Performing Lab:[address] [address] Notes/Report: Transglutaminase Ab IgG <1.0 Value Interpretation ----- <15.0 Antibody not detected > or = 15.0 Antibody detected THIS TEST WAS PERFORMED AT: [facility] [address] [place] [phone] RYAN MOSS MD Transglutaminase IgA Reviewed date:06/21/2024 03:46:52 PM Interpretation: Performing Lab:[address] [place] [address] Notes/Report: Transglutaminase IgA <1.0 Value Interpretation ----- <15.0 Antibody not detected > or = 15.0 Antibody detected THIS TEST WAS PERFORMED AT: [facility] [address] [place] [phone] RYAN MOSS MD Gliadin Ab Panel Reviewed date:06/21/2024 03:47:00 PM Interpretation: Performing Lab:[facility], [address] [place] [phone] Notes/Report: Gliadin Deamidated IgA Ab <1.0 Value Interpretation ----- <15.0 Antibody not detected > or = 15.0 Antibody detected Gliadin Deamidated IgG Ab <1.0 Value Interpretation ----- <15.0 Antibody not detected > or = 15.0 Antibody detected THIS TEST WAS PERFORMED AT: [facility] [address] [place] [phone] RYAN MOSS MD Endomysial IgA rflx Titer Reviewed date:06/21/2024 03:47:25 PM Interpretation: Performing Lab:[facility], [address] [place] [phone] Notes/Report: Endomysial IgA Antibody Negative Negative THIS TEST WAS PERFORMED AT: [facility]/[address] [address] KRISTA CASSIDY MD,PHD Endomysial Titer TNP Reason [...] Problem Status W/U Status Risk Notes Problem 909523063 Encounter for screening for malignant neoplasm of colon (Z12.11) Active confirmed Problem Diarrhea (37979853) Diarrhea (R19.7) Active confirmed Problem History of polyp of colon (situation) (966442366) Personal history of colonic polyps (Z86.010) Active confirmed Problem Screening for malignant neoplasm of rectum (812402060) Encounter for screening for malignant neoplasm of rectum (Z12.12) Active confirmed Problem 52750381 Preprocedural examination (Z01.818) Active confirmed Problem 626341742 Gastroesophageal reflux disease, esophagitis presence not specified (K21.9) Active confirmed Problem 084451067 Family history o f colon cancer (Z80.0) Active confirmed Problem Family history o f adenomatous and serrated polyps (Z83.710) Active confirmed Vital Signs Temperature 98.9 degrees Fahrenheit 06/12/2024 Blood pressure diastolic 00 mm Hg 06/12/2024 Height 69.5 in 06/12/2024 Blood pressure systolic 000 mm Hg 06/12/2024 Weight 268 lb 4 oz lbs 06/12/2024 BMI 39.04 kg/m2 06/12/2024 Encounters Encounter Location Date Provider Diagnosis [facility] [address] [place] [address] 06/12/2024 Wil Dumont Gastroesophageal ref lux disease, [...] Name:Wil Perez Tim , 10/05/2024 11:30:00 AM, [address] [place] [address] , [place], [place], [phone], Insurance Providers Payer Name Payer Address Payer Phone Subscriber Number Group Number Insured Name Patient Relationship to Insured Coverage Start Date Coverage End Date HEALTH PLANS [address] [facility] [place] [address] [phone] [id number] LAVERN MYERS Self - patient is the insured Medical (General) History Medical History History ICD Code Hypertension Denies MS,DM,CVA,Lung disease,renal dise ase GERD--told of a HH on an UGI OCD/Depression Sleep apnea--nasal CPAP EGD 2015-no esophagitis nor Brito's, benign gastric polyps, moderate-sized HH Colonoscopy 2015 with two tubular adenom as removed Surgical History Surgery Date(Month/Year) Knee--torn meniscus x 2
--- OUTSIDE RECORDS SUMMARY | 2024-09-22 11:12 | XMS_ITS ---
Author Organization [facility] Address [address] [place] [address] Care Team Providers Care Radio Station Manager Name Role Phone MARIAH MERAZ Primary Care Provider Wil Chen [phone] REASON FOR VISIT Patient presents today for a colon screening Encounters Encounter Location Date Provider Diagnosis [facility] [address] [place] [address] 07/26/2023 Wil Dumont Plan Of Treatment Next Appt Details Provider Name:Wil Dumont , 10/05/2024 11:30:00 AM, [address] [place] [address], [phone], Progress Notes * LAVERN MYERS JrDOB:[birth year] (59 yo M)Acc No.[id number]:07/26/2023 Progress Notes Patient:?LAVERN MYERS Jr Provider:?Wil Dumont MD :1965???Age:57 Y???Sex:Male Nnamdi e:07/26/2023 Address:[address] [place], [place] [id number] Pcp:MARIAH MERAZ Subjective: * Chief Complaints: * [...] MD Date:? 024 Generated for Kelly razo/Bao/Wendy on:?09/22/2024 11:12 AM EDT
--- OUTSIDE RECORDS SUMMARY | 2024-09-22 11:13 | XMS_ITS | Clinical Summary ---
Author Organization [facility] Address [address] [place] [address] Care Team Providers Care Loan Teller Name Role Phone Felix Kraus MD Primary Care Provider [phone] Social History Tobacco Use Types Packs/Day Years [...] age to complete this topic Care Teams Loan Teller Relationship Specialty Start Date End Date Felix Kraus MD [address] [place] [address] [address] [place] PCP - General 10/08/16
--- OUTSIDE RECORDS SUMMARY | 2024-09-22 11:13 | XMS_ITS ---
Author Organization [facility] Address [address] [place] [address] Care Team Providers Care Hat Blocking Machine Operator Name Role Phone MARIAH MERAZ Primary Care Provider Wil Chen Unavailable [phone] Allergies Allergen (clinical drug ingredient) Drug/Non Drug [...] Problem History of polyp of colon (situation) (059399616) Personal history of colonic polyps (Z86.010) Active confirmed Problem Diarrhea (54971748) Diarrhea (R19.7) Active confirmed Vital Signs Temperature 98.9 degrees Fahrenheit 06/12/19 25 Blood pressure systolic 000 mm Hg 06/12/19 25 Blood pressure diastolic 00 mm Hg 025 Height 69.5 in 06/12/2024 Weight 268 lb 4 oz lbs 06/12/2024 BMI 39.04 kg/m2 06/12/2024 Encounters Encounter Location Date Provider Diagnosis [facility] [address] [place] [address] 06/12/2024 Wil Dumont Gastroesophageal ref lux disease, [...] Provider Name:Wil Dumont , 10/05/2024 11:30:00 AM, [address] [place] [address], [phone], Progress Notes * ELIZABETH MYERSMOND JrDOB:[birth year] (58 yo M)Acc No.[id number]:06/12/2024 Progress Notes Patient:?ELIZABETH MYERSMOND Provider:?Wil Dumont MD :1965???Age:58 Y???Sex:Male Nnamdi e:06/12/2024 Address:[address] [place] [address] Pcp:MARIAH MERAZ Subjective: * Chief Complaints: * [...] past year??Never (0 point),?Points?3,?Interpretation?Negative.?Miscellaneous:?Marital status: single. Occupation: [employer]. ???Nonsmoker except a rare cigar; 3-4 drinks [...] no pa req per Cruz ref # [id number] 3.?Family history of colon cancer?Procedure: COLONOSCOPY (Ordered for 06/12/2024)* with MACsched for 10/05/24 at 11:30 ammiralax06/12/24 no pa req per Cruz ref # [id number] 4.?Personal history of colonic polyps?Procedure: COLONOSCOPY (Ordered for 06/12/2024)* with MACsched for 10/05/24 at 11:30 ammiralax06/12/24 no pa req per Cruz ref # [id number] 5.?Diarrhea?LAB: CELIAC PANEL #10 * Immunizations:? Influenza (Not administered - Refused: Patient decision) * Procedure Codes:?3017F COLOR ECTAL CA SCREEN DOC [id number] TOBACCO NON-VTBGV8292 BP SCR NOT PRFRM REC REASON NOS * Preventive Medicine:? ??Counseling:?Care goal follow-up plan:?Above Normal BMI Follow-up?Giving encouragement to exercise,?BMI management provided?Yes.? * Follow Up:?prn * * Sign off status: Completed true * Provider:?Wil Dumont MD Date:? 025 Generated for Kelly razo/Bao/Jorgeitting on:?09/22/2024 11:12 AM EDT History and Physical Notes * [...]
== END 2024-09-22 10:03 | disposition home or self-care (01) ==
LOC: HO.HMGCX 10:02
PROVIDERS: PCP Nurse Practitioner Family; Visit Provider Internal Medicine
DX: D61.818 Other pancytopenia (principal)
CPT/HCPCS: 76700

== ENCOUNTER → 2024-09-22 10:07 | Outpatient (BNV) | payer OTHER, SELFPAY | PROVIDERS: PCP Nurse Practitioner Family; Visit Provider Radiology Diagnostic Radiology | DX: R19.02 Left upper quadrant abdominal swelling, mass and lump (principal) | CPT/HCPCS: 76700 ==

== ENCOUNTER 2024-10-05 10:44 | Day surgery (SDC) | payer OTHER, SELFPAY ==
--- OUTSIDE RECORDS SUMMARY | 2024-09-11 08:13 | XMS_ITS | Clinical Summary ---
Author Organization [facility] Address [address] [place] [address] Care Team Providers Care Tool And Equipment Rental Clerk Name Role Phone NayanaFelix Chris DE LA CRUZ Primary Care Provider [phone] Social History Tobacco Use Types Packs/Day Years [...] Advance Directives For more information, please contact: [phone] Documents on File Type Date Recorded Patient Beer Runner Expl anation Advance Directive and Living Will 10/08/2016 11:12 AM Care Teams Tool And Equipment Rental Clerk Relationship Specialty Start Date End Date Felix Kraus DO [address] [place] [address] PCP - General 10/08/16
--- OUTSIDE RECORDS SUMMARY | 2024-09-11 08:13 | XMS_ITS | Clinical Summary ---
Author Organization [facility] Address [address] [place] [address] Care Team Providers Care Clearing Supervisor Name Role Phone Felix Kraus MD Primary Care Provider [phone] Social History Tobacco Use Types Packs/Day Years Used Date Smoking Tobacco: Never Assessed Sex and Gender Information Value Date Recorded Sex Assigned at Not on file Legal Sex Male 8:01 PM EST Gender Identity Not on file Sexual Orientation Not on file Plan of Treatment Health Maintenance Due Date Last Done Comments DTaP,Tdap,and Td Vaccines (1 - Tdap) 1985 Hepatitis B Vaccines (1 of 3 - 19+ 3-dose series) 1985 Pneumococcal Vaccine: 50+ Ye ars (1 of 1 - PCV) 2016 Zoster Vaccines (1 of 2) 2016 COVID-19 Vaccine ( - 2023-2 5 season) 2024 Influenza Vaccine (Season Ended) 2025 HIB Vaccines Aged Out No longer eligi [...] patient's age to complete this topic Meningococcal B Vaccine Aged Out No l onger eligible based on patient's age to complete [...] age to complete this topic Care Teams Clearing Supervisor Relationship Specialty Start Date End Date Felix Kraus MD [address] [place] [address] [address] T[place] Mckenna PCP - General 10/08/16
--- OUTSIDE RECORDS SUMMARY | 2024-09-11 08:13 | XMS_ITS ---
Author Organization [facility] Address [address] [place] [phone] Care Team Providers Care Senior Housekeeper Name Role Phone MARIAH MERAZ Primary Care Provider Wil Chen [phone] REASON FOR VISIT no insurance Encounters Encounter Location Date Provider Diagnosis [facility] [address] [facility] [address] [place] [phone] 07/18/2023 Wil Dumont Plan Of Treatment Next Appt Details Provider Name:Wil Dumont , 10/05/2024 11:30:00 AM, [address] [place] [address] , [place], [place], [phone], Progress Notes * LAVERN MYERS JrDOB:[birth year] (57 yo M)Acc No.[id number]:07/18/2023 Patient:?LAVERN MYERS :1965???Age:57 Y???Sex:Male Address:[address] [place] [address], [address] [place] [address] as of 05/29, [place] [address] * true * Date:? Generated for Melissai danni/Bao/eTransmitting on:?09/11/2024 08:12 AM EDT
--- OUTSIDE RECORDS SUMMARY | 2024-09-11 08:13 | XMS_ITS | Patient Health Record ---
Author Organization [facility] Address [address] [place] [address] Care Team Providers Care Bookbinder Chief Name Role Phone MARIAH MERAZ Primary Care Provider Wil Chen Unavailable [phone] Allergies Allergen (clinical drug ingredient) Drug/Non Drug Allergy documented on EMR Reaction Allergy Type Onset Date Status prednisone PredniSONE Intensol vomiting/abdomin al bleed Drug Allergy Active dogs, cats, certain plants (uncoded) Unknown Allergy Active Results Component Value Reference Range Notes Immunoglobulin A Reviewed date:06/21/2024 03:46:34 PM Interpretation: Performing Lab:[address] [address] Notes/Report: Immunoglobulin A 261 47-310 mg/dL THIS TEST WAS PERFORMED AT: [facility] [address] [place] [phone] RYAN MOSS MD Transglutaminase Ab IgG Reviewed date:06/21/2024 03:46:44 PM Interpretation: Performing Lab:[address] [address] Notes/Report: Transglutaminase Ab IgG <1.0 Value Interpretation ----- <15.0 Antibody not detected > or = 15.0 Antibody detected THIS TEST WAS PERFORMED AT: [facility] [address] [place] [phone] RYAN MOSS MD Transglutaminase IgA Reviewed date:06/21/2024 03:46:52 PM Interpretation: Performing Lab:[address] [place] [address] Notes/Report: Transglutaminase IgA <1.0 Value Interpretation ----- <15.0 Antibody not detected > or = 15.0 Antibody detected THIS TEST WAS PERFORMED AT: [facility] [address] [place] [phone] RYAN MOSS MD Gliadin Ab Panel Reviewed date:06/21/2024 03:47:00 PM Interpretation: Performing Lab:[facility], [address] [place] [phone] Notes/Report: Gliadin Deamidated IgA Ab <1.0 Value Interpretation ----- <15.0 Antibody not detected > or = 15.0 Antibody detected Gliadin Deamidated IgG Ab <1.0 Value Interpretation ----- <15.0 Antibody not detected > or = 15.0 Antibody detected THIS TEST WAS PERFORMED AT: [facility] [address] [place] [phone] RYAN MOSS MD Endomysial IgA rflx Titer Reviewed date:06/21/2024 03:47:25 PM Interpretation: Performing Lab:[facility], [address] [place] [phone] Notes/Report: Endomysial IgA Antibody Negative Negative THIS TEST WAS PERFORMED AT: [facility]/[address] [address] KRISTA CASSIDY MD,PHD Endomysial Titer TNP Reason For Referral No Information Medications Medication SIG (Take, Route, Fr equency, Duration) [...] 1 capsule Orally Once a day Active Immunizations Vaccine Route Administration Date Status Comme nts Influenza Unknown 06/12/2024 Refused Social History Tobacco Use: Social History Observation Description Date Details (start date - stop date) Never Smoker NA - NA Tobacco Use/Smoking Question Answer Notes Patient is [...] Never (0 point) Points 3 Interpretation Negative Section Notes: Nonsmoker except a rare ciga r; 5-7 drinks per week Nonsmoker except a rare ciga r; 3-4 drinks per day but cut down as of the 06/12/2024 OV Problems Problem Type SNOMED Code ICD Code Onset Dates Problem Status W/U Status Risk Notes Problem 644409505 Encounter for screening for malignant neoplasm of colon (Z12.11) Active confirmed Problem Diarrhea (67070117) Diarrhea (R19.7) Active confirmed Problem History of polyp of colon (situation) (381564177) Personal history of colonic polyps (Z86.010) Active confirmed Problem Screening for malignant neoplasm of rectum (157951861) Encounter for screening for malignant neoplasm of rectum (Z12.12) Active confirmed Problem 94339336 Preprocedural examination (Z01.818) Active confirmed Problem 500007183 Gastroesophageal reflux disease, esophagitis presence not specified (K21.9) Active confirmed Problem 104505674 Family history o f colon cancer (Z80.0) Active confirmed Problem Family history o f adenomatous and serrated polyps (Z83.710) Active confirmed Vital Signs Temperature 98.9 degrees Fahrenheit 06/12/2024 Blood pressure diastolic 00 mm Hg 06/12/2024 Height 69.5 in 06/12/2024 Blood pressure systolic 000 mm Hg 06/12/2024 Weight 268 lb 4 oz lbs 06/12/2024 BMI 39.04 kg/m2 06/12/2024 Encounters Encounter Location Date Provider Diagnosis [facility] [address] [place] [address] 06/12/2024 Wil Dumont Gastroesophageal ref lux disease, esophagitis presence not specified K21.9 ; Encounter for screening for malignant neoplasm of colon Z12.11 ; Family history of colon cancer Z80.0 ; Personal history of colonic polyps Z86.010 and Diarrhea R19.7 Assessments Encounter Date Diagnosis (ICD Code) Assessment Notes Treatment Notes Treatment Clinical Notes Section Notes 06/12/2024 Encounter for screening for malignant neoplasm of colon (ICD-10 - Z12.11) Overall, Lavern appears well. His current GI symptoms of loose bowel movements are most likely reflective of some irritable bowel syndrome given his good clinical appearance, as well as his normal laboratories in regard to his iron, B12, and folate levels. We did discuss irritable bowel syndrome and at this point the symptoms do not seem to be problematic. We did review that staying away from greasy food or fast food should help his symptoms in that regard. He does describe some stress in relation to caring for his mother and working full-time. I shall check laboratories for celiac disease in this regard. I did recommend a followup colonoscopy for further screening given his history of tubular adenomas, family history of rectal cancer, and his last colonoscopy being well over 5 years ago. I have also recommended an upper endoscopy the same day for reevaluation of his chronic reflux and to obtain duodenal biopsies to definitively exclude celiac disease. Full consent was obtained from him for both procedures, including risks of bleeding and perforation. The procedures will be done with monitored anesthesia care, Lavern was comfortable with this plan. Thank you again for allowing me to participate in Lavern's care. I shall continue to keep you advised of his progress. 06/12/2024 Gastroesophageal reflux disease, esophagitis presence not specified (ICD-10 - K21.9) Overall, Lavern appears well. His current GI symptoms of loose bowel movements are most likely reflective of some irritable bowel syndrome given his good clinical appearance, as well as his normal laboratories in regard to his iron, B12, and folate levels. We did discuss irritable bowel syndrome and at this point the symptoms do not seem to be problematic. We did review that staying away from greasy food or fast food should help his symptoms in that regard. He does describe some stress in relation to caring for his mother and working full-time. I shall check laboratories for celiac disease in this regard. I did recommend a followup colonoscopy for further screening given his history of tubular adenomas, family history of rectal cancer, and his last colonoscopy being well over 5 years ago. I have also recommended an upper endoscopy the same day for reevaluation of his chronic reflux and to obtain duodenal biopsies to definitively exclude celiac disease. Full consent was obtained from him for both procedures, including risks of bleeding and perforation. The procedures will be done with monitored anesthesia care, Lavern was comfortable with this plan. Thank you again for allowing me to participate in Lavern's care. I shall continue to keep you advised of his progress. 06/12/2024 Family history of colon cancer (ICD-10 - Z80.0) Overall, Lavern appears well. His current GI symptoms of loose bowel movements are most likely reflective of some irritable bowel syndrome given his good clinical appearance, as well as his normal laboratories in regard to his iron, B12, and folate levels. We did discuss irritable bowel syndrome and at this point the symptoms do not seem to be problematic. We did review that staying away from greasy food or fast food should help his symptoms in that regard. He does describe some stress in relation to caring for his mother and working full-time. I shall check laboratories for celiac disease in this regard. I did recommend a followup colonoscopy for further screening given his history of tubular adenomas, family history of rectal cancer, and his last colonoscopy being well over 5 years ago. I have also recommended an upper endoscopy the same day for reevaluation of his chronic reflux and to obtain duodenal biopsies to definitively exclude celiac disease. Full consent was obtained from him for both procedures, including risks of bleeding and perforation. The procedures will be done with monitored anesthesia care, Lavern was comfortable with this plan. Thank you again for allowing me to participate in Lavern's care. I shall continue to keep you advised of his progress. 06/12/2024 Personal history of colonic polyps (ICD-10 - Z86.010) Overall, Lavern appears well. His current GI symptoms of loose bowel movements are most likely reflective of some irritable bowel syndrome given his good clinical appearance, as well as his normal laboratories in regard to his iron, B12, and folate levels. We did discuss irritable bowel syndrome and at this point the symptoms do not seem to be problematic. We did review that staying away from greasy food or fast food should help his symptoms in that regard. He does describe some stress in relation to caring for his mother and working full-time. I shall check laboratories for celiac disease in this regard. I did recommend a followup colonoscopy for further screening given his history of tubular adenomas, family history of rectal cancer, and his last colonoscopy being well over 5 years ago. I have also recommended an upper endoscopy the same day for reevaluation of his chronic reflux and to obtain duodenal biopsies to definitively exclude celiac disease. Full consent was obtained from him for both procedures, including risks of bleeding and perforation. The procedures will be done with monitored anesthesia care, Lavern was comfortable with this plan. Thank you again for allowing me to participate in Lavern's care. I shall continue to keep you advised of his progress. 06/12/2024 Diarrhea (ICD-10 - R19.7) Overall, Lavern appears well. His current GI symptoms of loose bowel movements are most likely reflective of some irritable bowel syndrome given his good clinical appearance, as well as his normal laboratories in regard to his iron, B12, and folate levels. We did discuss irritable bowel syndrome and at this point the symptoms do not seem to be problematic. We did review that staying away from greasy food or fast food should help his symptoms in that regard. He does describe some stress in relation to caring for his mother and working full-time. I shall check laboratories for celiac disease in this regard. I did recommend a followup colonoscopy for further screening given his history of tubular adenomas, family history of rectal cancer, and his last colonoscopy being well over 5 years ago. I have also recommended an upper endoscopy the same day for reevaluation of his chronic reflux and to obtain duodenal biopsies to definitively exclude celiac disease. Full consent was obtained from him for both procedures, including risks of bleeding and perforation. The procedures will be done with monitored anesthesia care, Lavern was comfortable with this plan. Thank you again for allowing me to participate in Lavern's care. I shall continue to keep you advised of his progress. Plan Of Treatment Pending Test Test Name Order Date CELIAC PANEL #10 06/12/2024 Future Test Test Name Order Date UPPER GI ENDOSCOPY 05/19/2015 COLONOSCOPY 05/19/2015 UPPER GI ENDOSCOPY 06/12/2024 COLONOSCOPY 06/12/2024 Next Appt Details Provider Name:Wil Perez Tim , 10/05/2024 11:30:00 AM, [address] [place] [address] , [place], [place], [id number], Insurance Providers Payer Name Payer Address Payer Phone Subscriber Number Group Number Insured Name Patient Relationship to Insured Coverage Start Date Coverage End Date [employer] [address] [facility] [place] [address] [id number] LAVERN MYERS Self - patient is the insured Medical (General) History Medical History History ICD Code Hypertension Denies AK,DM,CVA,Lung disease,renal dise ase GERD--told of a HH on an UGI OCD/Depression Sleep apnea--nasal CPAP EGD 2015-no esophagitis nor Brito's, benign gastric polyps, moderate-sized HH Colonoscopy 2015 with two tubular adenom as removed Surgical History Surgery Date(Month/Year) Knee--torn meniscus x 2
--- OUTSIDE RECORDS SUMMARY | 2024-09-11 08:13 | XMS_ITS ---
Author Organization [facility] Address [address] [place] [address] Care Team Providers Care Architecture Manager Name Role Phone MARIAH MERAZ Primary Care Provider Wil Chen Unavailable [phone] Allergies Allergen (clinical drug ingredient) Drug/Non Drug Allergy documented on EMR Reaction Allergy Type Onset Date Status prednisone PredniSONE Intensol vomiting/abdomin al bleed Drug Allergy Active dogs, cats, certain plants (uncoded) Unknown Allergy Active REASON FOR VISIT Patient presents today for a colon screening Medications Medication SIG (Take, Route, Fr equency, [...] 1 tablet Orally Once a day Active Immunizations Vaccine [...] Notes: Nonsmoker except a rare ciga r; 3-4 drinks per day but cut down as of the 06/12/2024 OV Problems Problem Type SNOMED Code ICD Code Onset Dates Problem Status W/U Status Risk Notes Problem Family history of adenomatous and serrated polyps (Z83.710) Active confirmed Problem History of polyp of colon (situation) (983368431) Personal history of colonic polyps (Z86.010) Active confirmed Problem Diarrhea (90567995) Diarrhea (R19.7) Active confirmed Vital Signs Temperature 98.9 degrees Fahrenheit 06/12/19 25 Blood pressure systolic 000 mm Hg 06/12/19 25 Blood pressure diastolic 00 mm Hg 025 Height 69.5 in 06/12/2024 Weight 268 lb 4 oz lbs 06/12/2024 BMI 39.04 kg/m2 06/12/2024 Encounters Encounter Location Date Provider Diagnosis [facility] [address] [place] [address] 06/12/2024 Wil Dumont Gastroesophageal ref lux disease, esophagitis presence not specified K21.9 ; Encounter for screening for malignant neoplasm of colon Z12.11 ; Family history of colon cancer Z80.0 ; Personal history of colonic polyps Z86.010 and Diarrhea R19.7 Assessments Encounter Date Diagnosis (ICD Code) Assessment Notes Treatment Notes Treatment Clinical Notes Section Notes 06/12/2024 Gastroesophageal reflux disease, esophagitis presence not [...] keep you advised of his progress. 06/12/2024 Encounter for screening for malignant neoplasm [...] ENDOSCOPY 06/12/2024 COLONOSCOPY 06/12/2024 Next Appt Details Follow Up: prn, Reason: Provider Name:Wil Dumont , 10/05/2024 11:30:00 AM, [address] [place] [address], [phone], Progress Notes * ELIZABETH MYESRMOND JrDOB:[birth year] (58 yo M)Acc No.[id number]:06/12/2024 Progress Notes Patient:?ELIZABETH MYERSMOND Provider:?Wil Dumont MD :1965???Age:58 Y???Sex:Male Nnamdi e:06/12/2024 Address:[address] [place] [address] Pcp:MARIAH MERAZ Subjective: * Chief Complaints: * ???Patient presents today fo r a colon screening * HPI: ???incontinence:? I saw Lavern in consultation today in regard to further evaluation of his chronic gastroesophageal reflux, personal history of tubular adenomas of the colon, family history of colon cancer, need for colorectal cancer screening, diarrhea, and anemia. ?I last saw Lavern in 2015, at which time he underwent an upper endoscopy and colonoscopy. His upper endoscopy revealed a moderate size hiatal hernia and benign gastric polyps, but no evidence of any esophagitis nor Brito's esophagus. His colonoscopy revealed 2 tubular adenomas that were removed. He presently feels well. He enjoys a good appetite. He does remain on daily Prilosec with good relief of heartburn symptoms. He denies any dysphagia, early satiety, nausea, nor vomiting. He does describe that his bowel movements are somewhat loose on a fairly regular basis with upwards of 2-4 bowel movements per day with occasional urgency. He has not had any melena nor hematochezia. He denies any abdominal pain, jaundice, nor unintentional weight loss. He does have a family history of rectal cancer in his mother in her 60s. There is no family history inflammatory bowel disease nor celiac disease. ?Laboratories from April revealed a borderline anemia with hemoglobin of 13.9 and normal MCV. He had normal iron studies, B12 level, and folic acid level. He also had normal LFTs, normal chemistries, and normal renal function. He does describe having seen Dr. Cruz from hematology and was advised to start an oral B12 supplement. * ROS:?General/Constitutional:?Change in appetite?denies.?Chills?denies.?Fatigue?denies.?Ophthalmologic:?Comments?all negative.?ENT:?Comments?all negative.?Respiratory:?hemoptysis?denies.?Cough?denies.?Cardiovascular:?Chest pain?denies.?Orthopnea?denies.?Gastrointestinal:?Comments?See HPI for details.?Genitourinary:?Hematuria?denies.?Dysuria?denies.?Musculoskeletal:?Painful joints?denies.?Weakness?denies.?Skin:?Itching?denies.?Rash?denies.?Neurologic:?Headache?denies.?Seizures?denies.?Psychiatric:?Comments?per PMH.? * Medical History:? * Surgical History:?Knee--torn meniscus x 2 * Hospitalization/Major Diagno stic Procedure:?No Hospitalization History. * Family History:?Father: dece ased, AAA dissection.?Mother: alive.? Mother had rectal cancer in her early 60's with liver mets but treated with chemo and surgery_ _stil alive_ _-she has a colostomy now. * Social History:?Tobacco Use:?Tobacco Use/Smoking?Patient is a?nonsmoker.?Drugs/Alcohol:?Alcohol Screen?Did you have a drink containing alcohol in the past year??Yes,?How often did you have a drink containing alcohol in the past year??2 to 3 times a week (3 points),?How many drinks did you have on a typical day when you were drinking in the past year??1 or 2 drinks (0 point),?How often did you have 6 or more drinks on one occasion in the past year??Never (0 point),?Points?3,?Interpretation?Negative.?Miscellaneous:?Marital status: single. Occupation: [employer]. ???Nonsmoker except a rare cigar; 3-4 drinks per day but cut down as of the 06/12/2024 OV. * Medications:?TakingLisinopri l 5 MG Tablet 1 tablet Orally Once a dayZoloft 100 mg 2 tab Oral Prilosec 20 MG Capsule Delayed Release 1 capsule Orally Once a dayCialis 5 MG Tablet 1 tablet as needed Orally Once a dayVitamin B-12 100 MCG Tablet as directed Orally Taking Lisinopril 5 MG Tablet 1 tablet Orally Once a dayTaking Zoloft 100 mg 2 tab Oral Taking Prilosec 20 MG Capsule Delayed Release 1 capsule Orally Once a dayTaking Cialis 5 MG Tablet 1 tablet as needed Orally Once a dayTaking Vitamin B-12 100 MCG Tablet as directed Orally DiscontinuedColyte w Flavor Packs 240 GM Solution Reconstituted as directed Orally as directedMedication List reviewed and reconciled with the patientDiscontinued Colyte w Flavor Packs 240 GM Solution Reconstituted as directed Orally as directedMedication List reviewed and reconciled with the patient * Allergies:?dogs, cats, certa in plantsPredniSONE Intensol: vomiting/abdominal bleedyes[Allergies Verified] Objective: * Vitals:?Wt: 268 lb 4 oz, Ht: 69.5 in, BMI:39.04 Index, BP: 000/00 mm Hg, Temp: 98.9. * Examination: ???General Examination: ?GENERAL APPEARANCE:?pleasant, well nourished, well developed, in no acute distress.?EYES:?sclera non-icteric.?ORAL CAVITY:?mucosa moist.?NECK/THYROID:?no cervical lymphadenopathy, neck supple.?SKIN:?nonjaundiced, no spider angiomata.?HEART:?S1, S2 normal.?LUNGS:?clear to auscultation bilaterally.?ABDOMEN:?normal bowel sounds, no guarding or rigidity, no guarding or rigidity, no masses palpable, soft, nontender, nondistended.?EXTREMITIES:?no edema.?NEUROLOGIC:?alert and oriented.? Assessment: * Assessment: 1.?Gastroesophageal reflux d isease, esophagitis presence not specified - K21.9 (Primary)?2.?Encounter for screening for malignant neoplasm of colon - Z12.11?3.?Family history of colon cancer - Z80.0?4.?Personal history of colonic polyps - Z86.010?5.?Diarrhea - R19.7? Overall, Lavern appears wel l. His current GI symptoms of loose bowel [...] to keep you advised of his progress. Plan: * Treatment: 2.?Encounter for screening for malignant neoplasm of colon?Procedure: COLONOSCOPY (Ordered for 06/12/2024)* with MACsched for 10/05/24 at 11:30 ammiralax06/12/24 no pa req per Cruz ref # [id number] 3.?Family history of colon cancer?Procedure: COLONOSCOPY (Ordered for 06/12/2024)* with MACsched for 10/05/24 at 11:30 ammiralax06/12/24 no pa req per Cruz ref # [id number] 4.?Personal history of colonic polyps?Procedure: COLONOSCOPY (Ordered for 06/12/2024)* with MACsched for 10/05/24 at 11:30 ammiralax06/12/24 no pa req per Cruz ref # [id number] 5.?Diarrhea?LAB: CELIAC PANEL #10 * Immunizations:? Influenza (Not administered - Refused: Patient decision) * Procedure Codes:?3017F COLOR ECTAL CA SCREEN DOC [id number] TOBACCO [id number]-[id number] BP SCR NOT PRFRM REC REASON NOS * Preventive Medicine:? ??Counseling:?Care goal follow-up plan:?Above Normal BMI Follow-up?Giving encouragement to exercise,?BMI management provided?Yes.? * Follow Up:?prn * * Sign off status: Completed true * Provider:?Wil Dumont MD Date:? 025 Generated for Kelly razo/Bao/Jorgeitting on:?09/11/2024 08:13 AM EDT History and Physical Notes * HPI (History of Present Illness) Category Sub-Category Detail Notes Category Not es incontinence I saw Lavern in consultation today in regard to further evaluation of his chronic gastroesophageal reflux, personal history of tubular adenomas of the colon, family history of colon cancer, need for colorectal cancer screening, diarrhea, and anemia. I last saw Lavern in 2015, at which time he underwent an upper endoscopy and colonoscopy. His upper endoscopy revealed a moderate size hiatal hernia and benign gastric polyps, but no evidence of any esophagitis nor Brito's esophagus. His colonoscopy revealed 2 tubular adenomas that were removed. He presently feels well. He enjoys a good appetite. He does remain on daily Prilosec with good relief of heartburn symptoms. He denies any dysphagia, early satiety, nausea, nor vomiting. He does describe that his bowel movements are somewhat loose on a fairly regular basis with upwards of 2-4 bowel movements per day with occasional urgency. He has not had any melena nor hematochezia. He denies any abdominal pain, jaundice, nor unintentional weight loss. He does have a family history of rectal cancer in his mother in her 60s. There is no family history inflammatory bowel disease nor celiac disease. Laboratories from April revealed a borderline anemia with hemoglobin of 13.9 and normal MCV. He had normal iron studies, B12 level, and folic acid level. He also had normal LFTs, normal chemistries, and normal renal function. He does describe having seen Dr. Cruz from hematology and was advised to start an oral B12 supplement. Examination Category Sub-Category Detail Notes Category Not es General Examination GENERAL APPEARANCE: pleasant , well nourished, well developed, in no acute distress HEAD: EYES: sclera non-icteric EARS: NOSE: THROAT: NECK/THYROID: no cervical lymphade nopathy, neck supple HEART: S1, S2 normal CHEST: LUNGS: clear to auscultatio n bilaterally ABDOMEN: normal bowel sounds, no guarding or rigidity, no guarding or rigidity, no masses palpable, soft, nontender, nondistended NEUROLOGIC: alert and oriented SKIN: nonjaundiced, no spi sofia angiomata EXTREMITIES: no edema PERIPHERAL PULSES: BACK: BREASTS: MUSCULOSKELETAL: MALE GENITOURINARY: LYMPH NODES: RECTAL EXAM: FEMALE GENITOURINARY: ORAL CAVITY: mucosa moist
--- OUTSIDE RECORDS SUMMARY | 2024-09-11 08:13 | XMS_ITS ---
Author Organization [facility] Address [address] [place] [address] Care Team Providers Care Angle Shear Operator Name Role Phone MARIAH MERAZ Primary Care Provider Wil Chen [phone] REASON FOR VISIT Patient presents today for a colon screening Encounters Encounter Location Date Provider Diagnosis [facility] [address] [place] [phone] 07/26/2023 Wil Dumont Plan Of Treatment Next Appt Details Provider Name:Wil Dumont , 10/05/2024 11:30:00 AM, [address] [place] [address], [phone], Progress Notes * LAVERN MYERS JrDOB:[birth year] (58 yo M)Acc No.[id number]:07/26/2023 Progress Notes Patient:?LAVERN MYERS Jr Provider:?Wil Dumont MD :1965???Age:57 Y???Sex:Male Nnamdi e:07/26/2023 Address:[address] [place], [place] [id number] Pcp:MARIAH MERAZ Subjective: * Chief Complaints: * ???1. Patient presents today for a colon screening. * Medical History:? Objective: * Vitals:? Assessment: Plan: * Treatment: * * The named appointment provid er may or may not be the originator of this progress note, and it is not deemed complete until electronically signed by the appointment provider. Sign off status: Pending * Provider:?Wil Dumont MD Date:? 024 Generated for Kelly razo/Bao/Wendy on:?09/11/2024 08:13 AM EDT
[2024-10-01 14:57] VITALS: BMI 39.0
--- NOTE | 2024-10-02 09:12 | HO.ANESPROP2 ---
Documented by User: Tarsha Alonso NP 10/02/24 09:13 HPI - Anesthesia Eval Consult details Narrative: 59yo M for Upper Endoscopy and Colonoscopy PMF Active Problems Active Problems: All Active Problems Pancytopenia (Chronic) Thyroid nodule (Acute) Elevated PSA (Acute) Tick bite of back wall of thorax (Acute) Enlarged prostate (Acute) Abnormal finding on ultrasound (Acute) Varicose veins of left lower extremity with inflammation (Acute) Slowing of urinary stream (Acute) Numerous moles (Acute) Prediabetes (Acute) Elevated bilirubin (Acute) Varicose veins of right lower extremity with inflammation (Acute) Tinea (Acute) Varicose veins of both lower extremities with inflammation (Acute) Screening for colon cancer (Acute) Weak urinary stream (Acute) Incomplete bladder emptying (Acute) Tick bite of back (Acute) Cellulitis (Acute) Tick bite of thigh (Acute) Tick bite of abdomen (Acute) Fatigue (Acute) Physical exam (Acute) Sinusitis (Acute) Pharyngitis (Acute) Screening PSA (prostate specific antigen) (Acute) Hypertension (Acute) GERD (gastroesophageal reflux disease) (Acute) Primary osteoarthritis of left knee (Acute) Primary osteoarthritis of right knee (Acute) Past Medical History Medical History Screening PSA (prostate specific antigen) Primary osteoarthritis of right knee Primary osteoarthritis of left knee JOHN (obstructive sleep apnea) History of torn meniscus of left knee Hypertension GERD (gastroesophageal reflux disease) Family History Family History Father No problems noted. Mother Rectal cancer Liver lesion Surgical History Surgical History (Updated 10/02/24 @ 08:22 by Maricarmen Liu RN) Hx of knee surgery History of esophagogastroduodenoscopy (EGD) H/O colonoscopy Hx of cystoscopy Social History Social History Household Members: Family Alcohol intake: current Alcohol intake frequency: a few times a week Alcohol type: wine and hard liquor Patient Tobacco Use Status: Current someday Tobacco user Tobacco use type: Cigar e-Cigarette/Vaping Use: Never Used Second Hand Smoke Exposure: Yes Use of substances other than those prescribed or required for medical reasons: No Are you DNR?: No Advance Directives: No Advance Directives Information Provided: Yes service: No Current occupational status: employed 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 Gender identity: Male Cognitive needs: No Hearing needs: No Vision needs: No Meds Allergies Allergy/AdvReac Type Severity Reaction Status Date / Time prednisone [PREDNISONE] Allergy Severe GI BLEED, Verified 10/05/24 10:55 bleeding from lining of stomach prednisolone Allergy Unknown stomach Verified 10/05/24 10:55 upset cat, dogs Allergy Unknown Itching Uncoded 10/05/24 10:55 Exam Height,Weight and Vital Signs: Height 5 ft 9.5 in Weight 121.676 kg Pertinent Lab Results Pertinent Lab Results: Laboratory Tests 09/18/24 16:24 WBC 5.6 Hgb 14.1 Hct 42.1 Plt Count 149 L Assessment and Plan Assessment Anesthesia Assessment: Chart Reviewed Documented by User: Jorge Lott MD 10/05/24 13:32 PMFSH Past Medical History Medical History Screening PSA (prostate specific antigen) Primary osteoarthritis of right knee Primary osteoarthritis of left knee JOHN (obstructive sleep apnea) History of torn meniscus of left knee Hypertension GERD (gastroesophageal reflux disease) Family History Family History Father No problems noted. Mother Rectal cancer Liver lesion Family history of problems with anesthesia: No Surgical History Surgical History (Updated 10/02/24 @ 08:22 by Maricarmen Liu RN) Hx of knee surgery History of esophagogastroduodenoscopy (EGD) H/O colonoscopy Hx of cystoscopy History of Problems with Anesthesia: No Social History Social History Household Members: Family Alcohol intake: current Alcohol intake frequency: a few times a week Alcohol type: wine and hard liquor Patient Tobacco Use Status: Current someday Tobacco user Tobacco use type: Cigar e-Cigarette/Vaping Use: Never Used Second Hand Smoke Exposure: Yes Use of substances other than those prescribed or required for medical reasons: No Are you DNR?: No Advance Directives: No Advance Directives Information Provided: Yes service: No Current occupational status: employed 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 Gender identity: Male Cognitive needs: No Hearing needs: No Vision needs: No Meds Allergies Allergy/AdvReac Type Severity Reaction Status Date / Time prednisone [PREDNISONE] Allergy Severe GI BLEED, Verified 10/05/24 10:55 bleeding from lining of stomach prednisolone Allergy Unknown stomach Verified 10/05/24 10:55 upset cat, dogs Allergy Unknown Itching Uncoded 10/05/24 10:55 Exam Airway Mallampati Class: I TM Dist: <=3cm Neck ROM: Full Loose/Missing/Broken Teeth: No Heart: ok Lungs: ok Assessment and Plan Assessment Anesthesia Assessment: Anesthesia Plan Discussed Final Anesthetic Review Family History of Problems with Anesthesia: No History of Problems with Anesthesia: No NPO: Yes ASA Class: III Final Preanesthetic Review: No Changes in Pt Med Stat, Meds/Allgs Chart Reviewed, Consent Obtained/Reviewed and Anes Risks/Benef Reviewed Patient Risk: Intermediate Procedure Risk: Intermediate Anesthetic Plan Anesthetic Plan: Agree w/ Assess. and Plan and TIVA Disposition: Standard PACU
[2024-10-05 10:56] VITALS: BMI 37.8
[2024-10-05 10:59] VITALS: BP 143/85; PULSE 71; RESP 16; TEMP 36.9; O2SAT 97
[2024-10-05] MEDS: Lactated Ringers 1,000 ML 100 ML IVCONT (11:17)
[2024-10-05 12:32] VITALS: BP 142/81; PULSE 67; RESP 22; TEMP 36.7; O2SAT 98
--- NOTE | 2024-10-05 12:35 | PM.OP ---
Brief Operative Note Date of Service: 10/05/24 Pre-op diagnosis: GERD, Screening Post-op diagnosis: other (Hiatal hernia, Diverticulosis) Procedure: EGD with biopsies, Colonoscopy to the cecum and TI Surgeon: Wil Dumont MD Anesthesia: MAC Was an Lieutenant Governor used for this Procedure?: No Estimated blood loss (mL): 2.0 Pathology: other (A. Descending duodenum B. Gastric antrum) Condition: stable Disposition: PACU
[2024-10-05 12:45] VITALS: BP 122/70; PULSE 60; RESP 18; O2SAT 98
[2024-10-05 13:04] VITALS: BP 136/78; PULSE 63; RESP 18; TEMP 36.6; O2SAT 98
--- NOTE | 2024-10-05 22:33 | OP_ITS ---
DATE OF SERVICE: 10/05/2024 SURGEON: Wil Dumont MD INDICATIONS: The patient presents for evaluation of gastroesophageal reflux, personal history of tubular adenoma of the colon, family history of colon cancer, colorectal cancer screening, and diarrhea. Full consent obtained from him for this, including risks of bleeding and perforation. PREOPERATIVE DIAGNOSIS: POSTOPERATIVE DIAGNOSIS: PROCEDURE PERFORMED: Esophagogastroduodenoscopy with biopsies, and colonoscopy to the cecum and terminal ileum. ESTIMATED BLOOD LOSS: COMPLICATIONS: ANESTHESIA: Monitored anesthesia care. ASSISTANTS: SPECIMENS: PREOPERATIVE DIAGNOSES: Gastroesophageal reflux, personal history of tubular adenoma of the colon, family history of colon cancer, colorectal cancer screening, diarrhea, and anemia. POSTOPERATIVE DIAGNOSES: Gastroesophageal reflux, personal history of tubular adenoma of the colon, family history of colon cancer, colorectal cancer screening, diarrhea, and anemia, hiatal hernia, gastric polyps, mild gastritis, rule out celiac disease, diverticulosis, and internal hemorrhoids. DESCRIPTION OF PROCEDURE: The patient was placed in the left lateral decubitus position. The Olympus video gastroscope was passed in the posterior oropharynx and upper esophagus under direct vision. The scope was passed slowly into the distal esophagus. The gastroesophageal junction appeared at 35 cm. There was no sign of any esophagitis nor Brito esophagus. The scope entered the stomach. There was a small to moderate-sized hiatal hernia. The scope was advanced to the pylorus. The duodenum was cannulated to the descending portion. The duodenum including the bulb appeared normal without mass or ulceration. Biopsies were obtained from the descending duodenum. The scope was withdrawn back to the stomach. There was some mild erythema in the gastric antrum. Biopsies were obtained. There was good peristalsis. There was no evidence of any erosions nor ulceration. The scope was retroflexed visualizing the proximal stomach carefully which appeared normal other than some hyperplastic gastric polyps. There was no mass or ulceration. Biopsies were not obtained from the polyps as they had been biopsied on previous endoscopies. The scope was straightened and withdrawn back to the esophagus. The esophageal mucosa appeared normal. The scope was withdrawn from the patient. He was turned around for the colonoscopy. The digital rectal exam revealed no abnormalities. The [employer] video pediatric colonoscope was entered into the rectum and advanced easily to the cecum. Once in the cecum, I did identify normal-appearing cecal pouch with appendiceal orifice and normal-appearing ileocecal valve. The terminal ileum was cannulated and appeared normal. The scope was withdrawn back in the colon. The entire cecum and ileocecal valve appeared normal. The scope was slowly withdrawn assessing all mucosal surfaces carefully. Preparation was excellent. I did not visualize any sign of polyps, colitis, nor angiodysplasia. There was a mild amount of sigmoid diverticulosis. In the rectum, scope was retroflexed visualizing internal hemorrhoids, but no other pathology. The rectal mucosa appeared normal. The scope was straightened and withdrawn from the patient. He tolerated the procedures well and was returned to recovery area in stable condition. IMPRESSION: 1. Hiatal hernia. 2. Rule out celiac disease. 3. Mild gastritis. 4. Gastric polyps. 5. Diverticulosis. 6. Internal hemorrhoids. PLAN: The results of the pathology will be checked. He will continue his daily Prilosec for symptomatic relief of reflux. I would recommend a repeat colonoscopy in 5 years for further screening. He will see me as needed. MD ERIKA Trotter/ADIA / [phone]
== END 2024-10-05 13:30 | disposition home or self-care (01) ==
PROVIDERS: PCP Nurse Practitioner Family; Visit Provider Internal Medicine
PROC: (CPT 45378; principal; 2024-10-05 11:30)
DX: Z12.11 Encounter for screening for malignant neoplasm of colon (principal); Z86.0101 Personal history of adenomatous and serrated colon polyps; Z80.0 Family history of malignant neoplasm of digestive organs; R19.7 Diarrhea, unspecified; K57.30 Diverticulosis of large intestine without perforation or abscess without bleeding; K64.8 Other hemorrhoids; K21.9 Gastro-esophageal reflux disease without esophagitis; K29.50 Unspecified chronic gastritis without bleeding; K31.7 Polyp of stomach and duodenum; K44.9 Diaphragmatic hernia without obstruction or gangrene; D64.9 Anemia, unspecified; I10 Essential (primary) hypertension; G47.33 Obstructive sleep apnea (adult) (pediatric); F32.A Depression, unspecified; F42.9 Obsessive-compulsive disorder, unspecified; Z99.89 Dependence on other enabling machines and devices; Z79.899 Other long term (current) drug therapy; Z88.8 Allergy status to other drugs, medicaments and biological substances
CPT/HCPCS: 45378; 43239; 88305; 88342; J2003; J2704; J3010

== ENCOUNTER 2025-03-31 09:25 | Outpatient (REF) | payer OTHER, SELFPAY ==
--- NOTE | ~2025-03-31 | XR_ITS ---
EXAMINATION: XR KNEE, RIGHT CLINICAL INFORMATION: M25.561 - Pain in right knee COMPARISON: X-ray 12/06/2020 TECHNIQUE: Two views of the right knee. FINDINGS: Mild medial compartment arthritis. Bipartite patella. No visible acute fracture, dislocation or suspicious bony lesion. No significant effusion. No abnormal soft tissue calcification. XR/XR knee RT 2V IMPRESSION: Mild medial compartment arthritis Electronically signed by: Darrel Padron MD 03/31/2025 04:00 PM [facility]
== END 2025-03-31 09:26 | disposition home or self-care (01) ==
LOC: HO.HMGCLDS 09:25
PROVIDERS: PCP Nurse Practitioner Family; Visit Provider Nurse Practitioner Family
DX: Z00.00 Encounter for general adult medical examination without abnormal findings (principal); M25.561 Pain in right knee; M17.11 Unilateral primary osteoarthritis, right knee; R21 Rash and other nonspecific skin eruption; E66.9 Obesity, unspecified; B35.4 Tinea corporis; E55.9 Vitamin D deficiency, unspecified; E53.8 Deficiency of other specified B group vitamins; Z23 Encounter for immunization; Z68.39 Body mass index [BMI] 39.0-39.9, adult; Z12.5 Encounter for screening for malignant neoplasm of prostate
CPT/HCPCS: 73560; 90471; 90715; 96127

== ENCOUNTER 2025-03-31 09:25 | Outpatient (AMB) | payer OTHER, SELFPAY ==
--- OUTSIDE RECORDS SUMMARY | 2024-10-05 06:30 | XMS_ITS ---
Author Organization [facility] Address [address] [place] [id number] Care Team Providers Care Case Liner Name Role Phone MARIAH MERAZ Primary Care Provider Wil Chen [phone] REASON FOR VISIT gerd,screening,fam hx colon ca,hx polyps Encounters Encounter Location Date Provider Diagnosis [facility] [address] [place] [id number] 10/05/2024 Wil Dumont Colon cancer scree jordan Z12.11 ; History of adenomatous polyp of colon Z86.0101 ; Family history of colon cancer Z80.0 ; Diverticulosis of colon K57.30 ; Chronic GERD K21.9 ; Chronic gastritis K29.50 ; Gastric polyps K31.7 and Hiatal hernia K44.9 Assessments Encounter Date Diagnosis (ICD Code) Assessment Notes Treatment Notes Treatment Clinical Notes Section Notes 10/05/2024 Colon cancer screening (ICD-10 - Z12.11) 10/05/2024 History of adenomatous polyp of colon (ICD-10 - Z86.0101) 10/05/2024 Family history of colon cancer (ICD-10 - Z80.0) 10/05/2024 Diverticulosis of colon (ICD-10 - K57.30) 10/05/2024 Chronic GERD (ICD-10 - K21.9) 10/05/2024 Chronic gastritis (ICD-10 - K29.50) 10/05/2024 Gastric polyps (ICD-10 - K31.7) 10/05/2024 Hiatal hernia (ICD-10 - K44.9) Plan Of Treatment No Information Progress Notes * LAVERN MYERS:[birth year] (59 yo M)Acc No.[id number]:10/05/2024 EGD and COL/MAC Patient: LAVERN BECK Jr Provider: Krzysztof Dumont MD :1965 A ge:59 Y S ex:Male Date:10/05/2024 Address:[address] [place] [address] Pcp:MARIAH MERAZ Subjective: * Chief Complaints: * G erd,screening,fam hx colon ca,hx polyps Assessment: * Assessment: 1. C olon cancer screening - Z12.11 (Primary) 2 . H istory of adenomatous polyp of colon - Z86.0101 3 . F amily history of colon cancer - Z80.0 ?4. D iverticulosis of colon - K57.30 5 . C hronic GERD - K21.9 & #160; 6 . C hronic gastritis - K29.50 7 . G astric polyps - K31.7 ? 8 . H iatal hernia - K44.9 Plan: * Procedure Codes: 4 5378 Use for Medicare: COLOREC CANCR SCR;COLNSCPY BA ENEMA, Modifiers: 33 22517 UPPER GI ENDOSCOPY, [id number] RCMND FLW-UP 10 YRS DOCD Billing Information: * Procedure Codes: 17326 Use for Medicare: COLOREC CANCR SCR;COLNSCPY BA ENEMA. Modifiers: 33 04619 UPPER GI ENDOSCOPY, BIOPSY. [id number] RCMND FLW-UP 10 YRS DOCD. * The named appointment provid er may or may not be the originator of this progress note, and it is not deemed complete until electronically signed by the appointment provider. Sign off status: Pending * Provider: Krzysztof Dumont MD Date: 0 10/05/2024 Generated for Kelly razo/Bao/Jorgeitting on: 05/31/2024 10:27 AM EST
[2025-03-31 09:27] VITALS: BP 120/80; PULSE 80; RESP 16; O2SAT 98; BMI 39.7
--- NOTE | 2025-03-31 09:27 | A.OFFPC_ITS ---
Vital Signs 03/31/25 09:27 Height 5 ft 9.5 in Weight 273 lb BMI 39.7 BP 120/80 Blood Pressure Location Lt brachial Position Sitting Respiration 16 Pulse 80 Pulse Source Pulse Oximeter Pulse Oximetry (%) 98 Oxygen Delivery Method Room Air Intake Visit Reasons: Annual PE Managed Services Consultant Required: No Accompanied by: Self / Same As Patient Allergies prednisone (PREDNISONE) Allergy (Severe, Verified 03/31/25 10:20) GI BLEED, bleeding from lining of stomach prednisolone Allergy (Unknown, Verified 03/31/25 10:20) stomach upset cat, dogs Allergy (Unknown, Uncoded 03/31/25 10:20) Itching Medication List - Last Reconciled 03/31/25 by CASS Julien- cyanocobalamin (vitamin B-12) (Vitamin B-12) 500 mcg PO DAILY lisinopril 20 mg PO DAILY omeprazole 40 mg (2 x 20 mg) PO DAILY sertraline 200 mg (2 x 100 mg) PO DAILY tadalafil 5 mg PO DAILY Tobacco use date assessed: 03/31/25 Dental Screening Dental Screen Date: 03/31/25 Did you have a dental visit in the last 12 months?: Yes Did you have a dental problem in the last 6 months where you did not have access to dental care?: No Was dental information given to patient?: Patient has dentist HPI Annual PE HPI Details History of Present Illness The patient is a 59 year old individual presenting for a physical exam. The patient reports a rash on the upper torso, back, and right side, for which the patient has seen a hearing aid assembly supervisor in the past. The patient also reports ongoing right knee pain and has a known history of arthritis in that knee. Past medical history is also notable for obesity. The patient used to get fasting labs. Health Maintenance The patient is here for a physical exam. The patient will receive a Tdap injection in the office today and is advised to get an influenza vaccine at a pharmacy. Fasting labs will be ordered. Social History Review of Systems - Integumentary: Reports a rash on the u pper torso, back, and right side. - Musculoskeletal: Reports ongoing right knee pain. - Cardiovascular: Denies chest pain. - Respiratory: Denies shortness of breat h. - Gastrointestinal: Denies abdominal yari n, blood in stool, constipation, and diarrhea. - Psychiatric: Denies suicidal or homici jose enrique ideation. Physical Exam General: Cooperative, healthy appearing, comfortable, no acute distress and well developed. Obese. Orientation: Patient oriented x3 Limitations: No limitations Head: Normal to inspection Ears: Hearing grossly normal bilaterally Nose: Normal external nose present Face and sinus: Normal facial exam Eyes: Appearance normal, both eyes and all related structures Neck: Normal visual inspection and Yes full ROM Respiratory: Normal respiratory effort and able to speak in complete sentences. Clear to auscultation bilaterally Cardiovascular: Regular rate and rhythm. Normal S1 and S2 GI: Normal to inspection. Soft to palpation and nontender : testicles without masses/lesions and no hernias appreciated Skin: Rash and tenia lesions noted, macular erythema, circular, especially on the upper torso, mostly back, right side. Neuro: Patient oriented x3 Extremities: Normal to inspection. Right knee pain reported with a history of arthritis. Crepitus noted with extension and flexion. Negative Henri's and negative Kasia's. Results Plan 1. Tinea Corporis The patient presents with macular, erythematous, circular lesions on the upper torso, back, and right side, consistent with tinea corporis. Due to the widespread nature of the rash, an oral antifungal medication will be prescribed. 2. Osteoarthritis Of Right Knee The patient reports ongoing right knee pain with a history of arthritis. Physical exam revealed crepitus with movement. Right knee X-rays will be ordered for comparison to evaluate the progression of arthritis. 3. Obesity The patient was noted to be obese on physical exam. 4. Encounter for general adult medical e xamination with abnormal findings Z00.01 Discussion Notes I have assessed the patient's rash, which is consistent with tinea. Because it is widespread, I will prescribe an oral medication. I also addressed the patient's ongoing right knee pain and will order x-rays for comparison to assess the arthritis. We will administer a Tdap booster today, and I have advised the patient to get a flu shot at a pharmacy. Patient Instructions - A prescription for an oral medication for your skin rash will be sent to your pharmacy. - Please go for an X-ray of your right k nee to check on the arthritis. - You will receive a Tdap vaccine today in the office. - You can get your flu shot at your [facility]. - We have ordered fasting lab work for y ou. [facility] Medical History Screening PSA (prostate specific antigen) Primary osteoarthritis of right knee Primary osteoarthritis of left knee JOHN (obstructive sleep apnea) History of torn meniscus of left knee Hypertension GERD (gastroesophageal reflux disease) Surgical History Hx of knee surgery History of esophagogastroduodenoscopy (EGD) H/O colonoscopy Hx of cystoscopy Family History Father No problems noted. 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 1. Little interest or pleasure in doing things: not at all 2. Feeling down, depressed, or hopeless: not at all 3. Trouble falling or staying asleep, or sleeping too much: not at all 4. Feeling tired or having little energy: not at all 5. Poor appetite or overeating: not at all 6. Feeling bad about yourself - or that you are a failure or have let yourself or your family down: not at all 7. Trouble concentrating on things, such as reading the newspaper or watching television: not at all 8. Moving or speaking so slowly that other people could have noticed. Or the op posite - being so fidgety or restless that you have been moving around a lot more than usual: not at all 9. Thoughts that you would be better off or of hurting yourself in some way: not at all Total score: 0 Depression Screening Interpretation: Negative Depression Screening Done: Yes 33108 - PHQ-9 Billing: Yes Source: Developed by Drs. Wil Arevalo, Larisa Vick, Nj Dexter and colleagues, with an educational jermain from [employer]. Thrive Questionnaire Date Thrive assessed: 02/18/24 I am a: Patient What is your living situation today?: I have a steady place to live Within the past 12 months, did the food you bought not last and you didn't have the money to get more?: Never true Within the past 12 months, did you worry whether your food would run out before you got money to buy more?: Never true Do you have trouble paying for medicines?: No Do you have trouble getting transportation to medical appointments?: No Do you have trouble paying your heating and electricity bill?: No Do you have trouble taking care of your child, family member or friend?: No Do you have trouble with day-to-day activities such as bathing, preparing meals, shopping, managing finances, etc.?: No Are you currently unemployed and looking for a job?: No Are you interested in more education?: No Please select the resources that you would like help with: None Currently or been in a relationship where the following occur: No concerns reported THRIVE Score: 0 AUDIT C Alcohol Use Questionnaire (AUDIT-C) 1. How often do you have a drink containing alcohol?: 2-3 times a week 2. How many drinks containing alcohol do you have on a typical day when you are drinking?: 1 or 2 3. How often do you have six or more drinks on one occasion?: Less than monthly Total Score: 4 Score Reviewed/Action Taken: Yes REJI-7 AMB Questionnaire REJI-7 Date REJI - 7 assessed: 03/31/25 Feeling nervous, anxious, or on edge: 0 = Not at all Not being able to stop or control worryin = Not at all Worrying too much about different things: 0 = Not at all Trouble relaxin = Not at all Being so restless that it is hard to sit still: 0 = Not at all Becoming easily annoyed or irritable: 0 = Not at all Feeling afraid as if something awful might happen: 0 = Not at all Total REJI-7 score (0-4 normal; 5-9 mild; 10-14 moderate; 15-21 severe): 0 Source: Developed by Drs. Wil Arevalo, Larisa Vick, Nj Dexter and colleagues, with an educational jermain from [employer]. REJI-7 Assessment Billing REJI-7 Assessment Tool: REJI-7 Assessment 55196 Physical exam (Primary Care) Vital Signs: Last Vital Signs Pulse 80 03/31/25 09:27 Resp 16 03/31/25 09:27 BP 120/80 03/31/25 09:27 Pulse Ox 98 03/31/25 09:27 Oxygen Delivery Method Room Air 03/31/25 09:27 BMI result Body Mass Index 39.7 Tobacco/Smoking Status: Tobacco use Status Tobacco use date assessed 03/31/25 03/31/25 09:32 Patient Tobacco Use Status Current someday Tobacco 03/31/25 09:32 Tobacco use type Cigar 03/31/25 09:32 e-Cigarette/Vaping Use Never Used 03/31/25 09:32 PHQ-9: PHQ-9 Score PHQ-9: Total score 0 03/31/25 09:32 Depression Screening Interpretation: Negative Thrive Assessment: Date of Thrive Assessment Date Thrive assessed 02/18/24 03/31/25 09:32 Currently or been in a relationship where the following occur: No concerns reported Coding Level of Care Code Est Pt Level 3 (28822) Est Pt Prev Care 40-64y(19901) Diagnoses Physical exam Z00.00 Screening PSA (prostate specific antigen) Z12.5 Vitamin D deficiency E55.9 B12 deficiency E53.8 Primary osteoarthritis of right knee M17.11 Tinea B35.9 Additional Codes REJI-7 Assessment Billing - REJI-7 Assessment Tool: REJI-7 Assessment 69954 ([id number]) PHQ-9 - 92054 - PHQ-9 Billing: Yes ([id number]) Assessment & Plan Assessment & Plan (1) Physical exam: Code(s): Z00.00 - Encounter for general adult medical examination without abnormal findings Category: Medical (2) Screening PSA (prostate specific antigen): Code(s): Z12.5 - Encounter for screening for malignant neoplasm of prostate Category: Medical (3) Vitamin D deficiency: Code(s): E55.9 - Vitamin D deficiency, unspecified Category: Medical (4) B12 deficiency: Code(s): E53.8 - Deficiency of other specified B group vitamins Category: Medical (5) Primary osteoarthritis of right knee: Code(s): M17.11 - Unilateral primary osteoarthritis, right knee Category: Medical (6) Tinea: Code(s): B35.9 - Dermatophytosis, unspecified Category: Medical Plan . Orders: Orders Lipid Panel Today Z00.00 - Encounter for general adult medical examination without abnormal findings UA CC w/rflx Micro + Cult Today Z00.00 - Encounter for general adult medical examination without abnormal findings Prostate Specific Antigen Scr Today Z12.5 - Encounter for screening for malignant neoplasm of prostate Vitamin B12 and Folate Today E53.8 - Deficiency of other specified B group vitamins TDaP Immunization Today Z23 - Encounter for immunization Complete Blood Count Auto Diff Today Z00.00 - Encounter for general adult medical examination without abnormal findings Comprehensive Angwin. Panel Fast Today Z00.00 - Encounter for general adult medical examination without abnormal findings TSH reflex Free T4 Today Z00.00 - Encounter for general adult medical examination without abnormal findings Vitamin D 25-OH Total Today E55.9 - Vitamin D deficiency, unspecified XR knee RT 2V Today M17.11 - Unilateral primary osteoarthritis, right knee, M25.561 - Pain in right knee Medications: New fluconazole 100 mg PO DAILY 5 tabs 0RF 5 days Boostrix Tdap (diphth,pertus(acell),tetanus) 0.5 mL IM ONCE 0.5 mL 0RF NS Z23 - Encounter for immunization
--- OUTSIDE RECORDS SUMMARY | 2025-03-31 10:27 | XMS_ITS | Patient Health Record ---
Author Organization [facility] Address [address] [place] [address] Care Team Providers Care Adjustment Examiner Name Role Phone MARIAH MERAZ Primary Care Provider Wil Chen Unavailable [phone] Allergies Allergen (clinical drug ingredient) Drug/Non Drug Allergy documented on EMR Reaction Allergy Type Onset Date Status dogs, cats, certain plants (uncoded) Unknown Allergy Active prednisone PredniSONE Intensol vomiting/abdomin al bleed Drug Allergy Active Results Component Value Reference Range Flag Notes Transglutaminase IgA Reviewed date:06/21/2024 03:46:52 PM Interpretation: Performing Lab:[facility], [address] [place] [phone] Notes/Report: Transglutaminase IgA <1.0 N Value Interpretation ----- <15.0 Antibody not detected > or = 15.0 Antibody detected THIS TEST WAS PERFORMED AT: [facility] [address] [place] [phone] RYAN MOSS MD Gliadin Ab Panel Reviewed date:06/21/2024 03:47:00 PM Interpretation: Performing Lab:[facility], [address] [place] [phone] Notes/Report: Gliadin Deamidated IgA Ab <1.0 N Value Interpretation ----- <15.0 Antibody not detected > or = 15.0 Antibody detected Gliadin Deamidated IgG Ab <1.[address] [facility] [address] [place] [phone] RYAN MOSS MD Value Interpretation ----- <15.0 Antibody not detected > or = 15.0 Antibody detected THIS TEST WAS PERFORMED AT: Endomysial IgA rflx Titer Reviewed date:06/21/2024 03:47:25 PM Interpretation: Performing Lab:[facility], [address] [place] [phone] Notes/Report: Endomysial IgA Antibody Negative Negative THIS TEST WAS PERFORMED AT: [facility]/[address] [phone] KRISTA CASSIDY MD,PHD Endomysial Titer TNP Pathology (Not yet reviewed by provider) Interpretation: Performing Lab:[facility], [address] [place] [phone] Notes/Report: Transglutaminase Ab IgG Reviewed date:06/21/2024 03:46:44 PM Interpretation: Performing Lab:[facility], [address] [place] [phone] Notes/Report: Transglutaminase Ab IgG <1.0 N Value Interpretation ----- <15.0 Antibody not detected > or = 15.0 Antibody detected THIS TEST WAS PERFORMED AT: [facility] [address] [place] [phone] RYAN MOSS MD Immunoglobulin A Reviewed date:06/21/2024 03:46:34 PM Interpretation: Performing Lab:[facility], [address] [place] [phone] Notes/Report: Immunoglobulin A 261 47-310 mg/dL N THIS TEST WAS PERFORMED AT: [facility] [address] [place] [phone] RYAN MOSS MD Reason For Referral No Information Medications Medication SIG (Take, Route, Frequency, Duration) Notes Start Date End Date Status Zoloft 100 mg 2 tab Oral Activ e Lisinopril 5 MG Tablet 1 tablet Orally Once a day Active Vitamin B-12 100 MCG Tablet as directed Orally 06/12/2024 Active Cialis 5 MG Tablet 1 tablet as needed O rally Once a day; Duration: 30 day(s) 06/12/2024 Active Prilosec 20 MG Capsule Delayed Release 1 capsule Orally Once a day Active Immunizations Vaccine Route Administration Date Status Comme nts Influenza Unknown 06/12/2024 Refused Social History Tobacco Use: Social History Observation Description Date Details (start date - stop date) Never Smoker NA - NA Social History Drugs/Alcohol: Social Info Question Answer Notes Alcohol Screen Did you have a drink containing alcohol in the past year? Yes How often did you have a drink containing alcohol in the past year? 2 to 3 times a week (3 points) How many drinks did you have on a typical day when you were drinking in the past year? 1 or 2 drinks (0 point) How often did you have 6 or more drinks on one occasion in the past year? Never (0 point) Points 3 Interpretation Negative Tobacco Use: Social Info Question Answer Notes Tobacco Use/Smoking Patient is a nonsmoker Additional Details Category Social Info Options Details Miscellaneous: Marital status: single Occupation: [employer] Section Notes: Nonsmoker except a rare ciga r; 5-7 drinks per week Nonsmoker except a rare ciga r; 3-4 drinks per day but cut down as of the 06/12/2024 OV Problems Problem Type SNOMED Code ICD Code Onset Dates Problem Status W/U Status Risk Notes Problem Screening for malignant neoplasm of colon (045274841) Encounter for screening for malignant neoplasm of colon (Z12.11) Active confirmed Problem Diarrhea (52559235) Diarrhea (R19.7) Active con firmed Problem History of polyp of colon (situation) (114399148) Personal history of colonic polyps (Z86.010) Active confirmed Problem Screening for malignant neoplasm of rectum (826212890) Encounter for screening for malignant neoplasm of rectum (Z12.12) Active confirmed Problem Preprocedural examination (072871623167115) Preprocedural examination (Z01.818) Active confirmed Problem Gastroesophageal reflux disease (968518962) Gastroesophageal reflux disease, esophagitis presence not specified (K21.9) Active confirmed Problem Family History of Cancer of Colon (Situation) (277519369) Family history of colon cancer (Z80.0) Active confirmed Problem Family history o f adenomatous and serrated polyps (Z83.710) Active confirmed Vital Signs Temperature 98.9 degrees Fahrenheit 06/12/2024 Blood pressure diastolic 00 mm Hg 06/12/2024 Height 69.5 in 06/12/2024 Blood pressure systolic 000 mm Hg 06/12/2024 Weight 268 lb 4 oz lbs 06/12/2024 BMI 39.04 kg/m2 06/12/2024 Encounters Encounter Location Date Provider Diagnosis [facility] [address] [place], [place] [id number] 10/05/2024 Wil Dumont Colon cancer screeni ng Z12.11 ; History of adenomatous polyp of colon Z86.0101 ; Family history of colon cancer Z80.0 ; Diverticulosis of colon K57.30 ; Chronic GERD K21.9 ; Chronic gastritis K29.50 ; Gastric polyps K31.7 and Hiatal hernia K44.9 [facility] [address] [place] [address] 06/12/2024 Wil Dumont Gastroesophageal ref lux disease, [...] adenomatous polyp of colon (ICD-10 - Z86.0101) 06/12/2024 Encounter for screening for malignant neoplasm [...] to keep you advised of his progress. 10/05/2024 Family history of colon cancer (ICD-10 - Z80.0) 10/05/2024 Diverticulosis of colon (ICD-10 - K57.30) 06/12/2024 Personal history of colonic polyps (ICD-10 [...] to keep you advised of his progress. 10/05/2024 Chronic GERD (ICD-10 - K21.9) 06/12/2024 Diarrhea (ICD-10 - R19.7) Overall, Lavern [...] to keep you advised of his progress. 10/05/2024 Chronic gastritis (ICD-10 - K29.50) 10/05/2024 Gastric polyps (ICD-10 - K31.7) 10/05/2024 Hiatal hernia (ICD-10 - K44.9) Plan Of Treatment Pending Test Test Name Order Date CELIAC PANEL #10 06/12/2024 Pathology 10/05/2024 Future Test Test Name Order Date UPPER GI ENDOSCOPY 05/19/2015 COLONOSCOPY 05/19/2015 UPPER GI ENDOSCOPY 06/12/2024 COLONOSCOPY 06/12/2024 Insurance Providers Payer Name Payer Address Payer Phone Subscriber Number Group Number Insured Name Patient Relationship to Insured Coverage Start Date Coverage End Date [employer] [address] [place] [address] [id number] [place] Self - patient is the insured Medical (General) History Medical History History ICD Code Hypertension Denies NV,DM,CVA,Lung disease,renal dise ase GERD--told of a HH on an UGI OCD/Depression Sleep apnea--nasal CPAP EGD 2015-no esophagitis nor Brito's, benign gastric polyps, moderate-sized HH Colonoscopy 2015 with two tubular adenom as removed Surgical History Surgery Date(Month/Year) Knee--torn meniscus x 2
--- OUTSIDE RECORDS SUMMARY | 2025-03-31 10:27 | XMS_ITS | Clinical Summary ---
Author Organization [facility] Address [address] [place] [address] Care Team Providers Care Chief Airline Radio Operator Name Role Phone NayanaFelix Chris DE LA CRUZ Primary Care Provider [phone] Social History Tobacco Use Types Packs/Day Years [...] (1 of 2) 2016 Influenza Vaccine (#1) 2025 Pneumococcal Vaccine Aged Out No long er eligible based on patient's age to complete this topic RSV Ped < 20 months Aged Out No longe r eligible based on patient's age to complete this topic Advance Directives For more information, please contact: [phone] Documents on File Type Date Recorded Patient Slot Tag Inserter Expl anation Advance Directive and Living Will 10/08/2016 11:12 AM Care Teams Chief Airline Radio Operator Relationship Specialty Start Date End Date Felix Kraus DO [address] [place] [id number] PCP - General 10/08/16
--- OUTSIDE RECORDS SUMMARY | 2025-03-31 10:28 | XMS_ITS | Clinical Summary ---
Author Organization [facility] it[facility] Address [address] [place] [address] Care Team Providers Care Senior Contract Specialist Name Role Phone Felix Kraus MD Primary Care Provider [phone] Social History Tobacco Use Types Packs/Day Years [...] 2016 Zoster Vaccines (1 of 2) 2016 Depression Screening 05/06/2024 COVID-19 Vaccine (1 - 2024-2 6 season) 2025 Influenza Vaccine (#1) 2025 RSV Immunization Adult Patie nts (1 - 1-dose 75+ series) 2041 HIB Vaccines Aged Out No longer eligi [...] age to complete this topic Care Teams Senior Contract Specialist Relationship Specialty Start Date End Date Felix Kraus MD [address] [place] [address] [address] TATA Mckenna PCP - General 10/08/16
--- OUTSIDE RECORDS SUMMARY | 2025-03-31 10:28 | XMS_ITS ---
Author Organization Unknown ENCOUNTERS Encounter Performer Location Date Diagnosis Diagnosis Status Outpatient [address] [id number] N[place] *Note: Encounters from your own facility or health system may be excluded. Allergies, Adverse Reactions, Alerts Allergen Type Severity Identification Date prednisolone drug allergy 3 [id number] Medications Name Date Quantity Days Supplied GPI Number
== END 2025-03-31 10:45 | disposition home or self-care (01) ==
LOC: HO.HMCC 09:26
PROVIDERS: PCP Nurse Practitioner Family; Visit Provider Nurse Practitioner Family
DX: Z00.00 Encounter for general adult medical examination without abnormal findings (principal); E55.9 Vitamin D deficiency, unspecified; E53.8 Deficiency of other specified B group vitamins; M17.11 Unilateral primary osteoarthritis, right knee; B35.9 Dermatophytosis, unspecified; Z12.5 Encounter for screening for malignant neoplasm of prostate; Z23 Encounter for immunization

== ENCOUNTER → 2025-03-31 10:25 | Outpatient (BNV) | payer OTHER, SELFPAY | PROVIDERS: PCP Nurse Practitioner Family; Visit Provider Radiology Diagnostic Ultrasound | DX: M17.11 Unilateral primary osteoarthritis, right knee (principal) | CPT/HCPCS: 73560 ==